=== PATIENT | female | born 1935 | race Caucasian/White ===

== ENCOUNTER 2017-07-01 01:04 | Observation (INO) | payer MEDICARE, BC ==
[~2017-07-01] VITALS: Ht 160 cm; Wt 60.4 kg
[2017-07-01] VITALS (11 sets, daily range): BP systolic 110–221; BP diastolic 52–103; PULSE 57–82; RESP 12–20; TEMP 96–97.7; O2SAT 93–98
[~2017-07-01 01:04] MED LIST: AMBI5TAB PO; ASPI81TA23 PO; Aspirin Chew PO; COUM5TAB PO; DOCU1CAP39 PO; FERR325T PO; FLUTI110I INH; HYDR-3516 PO; IPRASOL NEB; MUCI600T PO; PRAV20TA PO; PRED5TAB PO; SOTA80 PO; VITA100018 PO; [UNRECOGNIZED DRUG - OTHER] TOPICAL
--- NOTE | 2017-07-01 01:28 | PD ---
HPI Chief Complaint: nosebleed Time Seen by Provider: 01:22 Travel History International Travel<30 days: No Contact w/Intl Traveler<30days: No Traveled to known affect area: No History of Present Illness HPI 81-year-old female with history of DVT, A. fib, on Coumadin, here for evaluation of nosebleed. Patient noticed a bleed about an hour prior to arrival and it woke her up from sleep. States it is mainly from her right nare. She denies trauma. She reports history of spontaneous nosebleed from the right knee requiring Rhino Rocket a couple years ago. Her last INR was 2 weeks ago and was 2.4. 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) Endocrine: No GERD: No Genitourinary: Yes (UROTHELIAL CARCINOMA) Hiatal Hernia: No Immune Disorder: Yes Kidney Stones: Yes Musculoskeletal: Yes Neurologic: Yes Psychiatric: No Reproductive: No Respiratory: Yes Integumentary: Yes (SQUAMOUS CELL PRIMITIVO&YULY 2014) Migraines: No Radiation Therapy: Yes Renal Failure: No Seizures: No Sickle Cell Disease: No Sleep Apnea: No Thyroid Disease: No Ulcer: No Menopausal: Yes : 2 Para: 2 Past Surgical History Abdominal Surgery: Yes AICD: No Appendectomy: Yes Arteriovenous Shunt: No Body Medical Devices: RIGHT SIDE DANIELLE FILTER 2000 Cardiac Surgery: No Ear Surgery: No Endocrine Surgery: No Eye Surgery: Yes (L EYE CATARACT) Genitourinary Surgery: Yes (CANCER IN BLADDER) Gynecologic Surgery: No (hysterectomy) Hysterectomy: Yes Insulin Pump: No Joint Replacement: No Oral Surgery: No Pacemaker: No Thoracic Surgery: No Social History Alcohol Use: No Tobacco Use: No Substance Use: No Allergies-Medications (Allergen,Severity, Reaction): Coded Allergies: doxycycline (Unverified Allergy, Severe, 02/10/17) TOUNG SWELL gabapentin (Unverified Allergy, Severe, 02/10/17) TOUNG SWELLING pregabalin (Unverified Allergy, Severe, 02/10/17) orange (Unverified Adverse Reaction, Intermediate, Diarrhea, 02/10/17) [place] Juice only Reported Meds & Prescriptions Reported Meds & Active Scripts Active Vitamin D3 (Cholecalciferol) 1,000 Unit Tab 1,000 Units PO DAILY Pravachol (Pravastatin) 20 Mg Tab 20 Mg PO DAILY Sorine (Sotalol HCl) 80 Mg Tab 40 Mg PO BID Ambien (Zolpidem Tartrate) 5 Mg Tab 5 Mg PO HS PRN Coumadin (Warfarin) 5 Mg Tab 5 Mg PO DAILY@16 Duoneb (Ipratropium-Albuterol Neb) 0.5-2.5 Mg/3 Ml Neb 1 Ampule NEB BID NEB Aspirin EC (Aspirin) 81 Mg Tabdr 81 Mg PO MOWEFR@09 Reported Breo Ellipta Inh (Fluticasone/Vilanterol) 100-25 Mcg/Act Inh 1 Puff INH DAILY Use daily at the same time. Miralax Powder (Polyethylene Glycol 3350 Powder) 17 Gm Powd 17 Gm PO DAILY Mix and dissolve one measuring cap-ful (17 grams) in water or juice. Furosemide 20 Mg Tab 20 Mg PO DAILY Tylenol (Acetaminophen) 325 Mg Tab 500 Mg PO DIRECTED Docusate Sodium 100 Mg Cap 100 Mg PO DAILY Review of Systems Except as stated in HPI: all other systems reviewed are Neg Physical Exam Narrative GENERAL: Well-developed, well-nourished, awake, alert, comfortable, no apparent distress. SKIN: Focused skin assessment warm/dry. HEAD: Atraumatic. Normocephalic. EYES: Pupils equal and round. No scleral icterus. No injection or drainage. ENT: Bilateral nares with dried blood with no active bleeding. There is also small amount of blood in posterior pharynx without active bleeding. There is a nasal septal defect which the patient reports she has had for a long time. NECK: Trachea midline. No JVD. CARDIOVASCULAR: Regular rate and rhythm. RESPIRATORY: No accessory muscle use. Clear to auscultation. Breath sounds equal bilaterally. GASTROINTESTINAL: Abdomen soft, non-tender, nondistended. MUSCULOSKELETAL: No obvious deformities. No clubbing. No cyanosis. No edema. NEUROLOGICAL: Awake and alert. No obvious cranial nerve deficits. Motor grossly within normal limits. Normal speech. PSYCHIATRIC: Appropriate mood and affect; insight and judgment normal. Data Data Last Documented VS Vital Signs Date Time Temp Pulse Resp B/P (MAP) Pulse Ox O2 Delivery O2 Flow Rate FiO2 07/01/17 02:33 68 16 183/95 (124) 95 Room Air 07/01/17 01:10 97.6 Orders Orders Basic Metabolic Panel (Bmp) (07/01/17 01:22) Complete Blood Count With Diff (07/01/17 01:22) Prothrombin Time / Inr (Pt) (07/01/17 01:22) Act Partial Throm Time (Ptt) (07/01/17 01:22) Iv Access Insert/Monitor (07/01/17 01:22) Ecg Monitoring (07/01/17 01:22) Oximetry (07/01/17 01:22) Sodium Chloride 0.9% Flush (Ns Flush) (07/01/17 01:30) Admit Order (Ed Use Only) (07/01/17 02:56) Labs Laboratory Tests Test 07/01/17 01:52 White Blood Count 6.7 TH/MM3 Red Blood Count 3.98 MIL/MM3 Hemoglobin 12.6 GM/DL Hematocrit 38.7 % Mean Corpuscular Volume 97.2 FL Mean Corpuscular Hemoglobin 31.8 PG Mean Corpuscular Hemoglobin Concent 32.7 % Red Cell Distribution Width 13.1 % Platelet Count 310 TH/MM3 Mean Platelet Volume 7.4 FL Neutrophils (%) (Auto) 62.9 % Lymphocytes (%) (Auto) 25.3 % Monocytes (%) (Auto) 9.4 % Eosinophils (%) (Auto) 2.0 % Basophils (%) (Auto) 0.4 % Neutrophils # (Auto) 4.3 TH/MM3 Lymphocytes # (Auto) 1.7 TH/MM3 Monocytes # (Auto) 0.6 TH/MM3 Eosinophils # (Auto) 0.1 TH/MM3 Basophils # (Auto) 0.0 TH/MM3 CBC Comment DIFF FINAL Differential Comment Prothrombin Time 22.7 SEC Prothromb Time International Ratio 2.2 RATIO Activated Partial Thromboplast Time 34.1 SEC Blood Urea Nitrogen 35 MG/DL Creatinine 1.30 MG/DL Random Glucose 96 MG/DL Calcium Level 9.6 MG/DL Sodium Level 140 MEQ/L Potassium Level 5.2 MEQ/L Chloride Level 103 MEQ/L Carbon Dioxide Level 27.6 MEQ/L Anion Gap 9 MEQ/L Estimat Glomerular Filtration Rate 39 ML/MIN MDM Medical Decision Making Medical Screen Exam Complete: Yes Emergency Medical Condition: Yes Differential Diagnosis Epistaxis, anterior nosebleed, posterior nosebleed, coagulopathy Narrative Course Vital signs reviewed and shows that the patient is slightly hypertensive with initial blood pressure 221/103 with repeat blood pressure 183/95 without any intervention. She is not displaying any signs or symptoms of hypertensive crisis. CBC shows hemoglobin 12.6, hematocrit 38.7, platelets 310. BMP is remarkable for potassium 5.2, BUN 35, creatinine 1.3, GFR 39 which is slightly worse than her baseline renal function. INR is 2.2. Patient presents with epistaxis and hemostasis was achieved prior to arriving in the emergency department. Patient had a few episodes of coughing up blood clots from her posterior pharynx, however there is no indication of active bleeding. Both the patient and her daughter were made aware of all findings and she is resting comfortably. Patient is concerned about being discharged home and having further bleeding. I believe it is reasonable to keep her for overnight observation as she is on Coumadin and her INR is 2.2. She also has slightly worsening renal function than her baseline. Case was discussed with the patient's primary care physician Dr. Morrissey who has agreed to admit the patient to his service for overnight observation. Diagnosis Primary Impression: Epistaxis Additional Impressions: Acute kidney injury Warfarin-induced coagulopathy Admitting Information Admitting Physician Requests: Observation Basilio Weston MD Jul 01, 2017 01:28
[2017-07-01] MEDS ORDERED: SODIUM CHLORIDE 0.9% FLUSH 10 ML FLUSH IV FLUSH PRN ×2 (01:30→03:15)
[2017-07-01 02:16] LABS: AUTOMATED NEUTROPHIL # 4.3 TH/MM3 (1.8-7.7); BASOPHIL % 0.4 % (0.0-2.0); EOSINOPHIL # 0.1 TH/MM3 (0-0.4); HEMATOCRIT 38.7 % (35.0-46.0); HEMOGLOBIN 12.6 GM/DL (11.6-15.3); LYMPH % 25.3 % (9.0-44.0); LYMPHOCYTE # 1.7 TH/MM3 (1.0-4.8); MEAN CELL VOLUME 97.2 FL (80.0-100.0); MEAN CORPUSCULAR HEMOGLOBIN 31.8 PG (27.0-34.0); MEAN CORPUSCULAR HGB CONC 32.7 % (32.0-36.0); MEAN PLATELET VOLUME 7.4 FL (7.0-11.0); MONO % 9.4 % (0.0-8.0); MONOCYTE # 0.6 TH/MM3 (0-0.9); NEUT % 62.9 % (16.0-70.0); PLATELET COUNT 310 TH/MM3 (150-450); RED BLOOD COUNT 3.98 MIL/MM3 (4.00-5.30); RED CELL DISTRIBUTION WIDTH 13.1 % (11.6-17.2); WHITE BLOOD COUNT 6.7 TH/MM3 (4.0-11.0)
[2017-07-01] MEDS ORDERED: FLUT1INH INH (02:17)
[2017-07-01] MEDS ORDERED: FURO20TA PO (02:17)
[2017-07-01] MEDS ORDERED: MIRA3350 PO (02:17)
[2017-07-01] MEDS ORDERED: DOCU100C15 PO (02:17)
[2017-07-01] MEDS ORDERED: TYLE325T PO (02:17)
[2017-07-01 02:26] LABS: CALCIUM 9.6 MG/DL (8.5-10.1)
[2017-07-01 02:27] LABS: BICARBONATE 27.6 MEQ/L (21.0-32.0)
[2017-07-01 02:28] LABS: INTERNATIONAL NORMALIZED RATIO 2.2 RATIO; PROTHROMBIN TIME - PATIENT 22.7 SEC (9.8-11.6)
[2017-07-01 02:30] LABS: CREATININE 1.3 MG/DL (0.50-1.00)
[2017-07-01] MEDS ORDERED: SODIUM CHLOR 0.9% 1000 ML INJ 1,000 ML IV SCH (03:06)
[2017-07-01] MEDS ORDERED: SENNOSIDES 8.6 MG TAB PO PRN (03:15)
[2017-07-01] MEDS ORDERED: NALOXONE HCL 0.4 MG/ML AMP IV PUSH PRN (03:15)
[2017-07-01] MEDS ORDERED: cloNIDine HCL 0.1 MG TAB PO PRN (03:15)
[2017-07-01] MEDS ORDERED: LACTULOSE SYRUP 20 GM/30 ML CUP PO PRN (03:15)
[2017-07-01] MEDS ORDERED: MAGNESIUM HYDROXIDE SUSP 30 ML CUP PO PRN (03:15)
[2017-07-01] MEDS ORDERED: ZOLPIDEM TARTRATE 5 MG TAB PO PRN (03:15)
[2017-07-01] MEDS ORDERED: ONDANSETRON HCL 4 MG/2 ML VIAL IVP PRN (03:15)
[2017-07-01] MEDS ORDERED: ACETAMINOPHEN 325 MG TAB PO PRN (03:15)
[2017-07-01] MEDS ORDERED: BISACODYL 10 MG SUPP RECTAL PRN (03:15)
[2017-07-01] MEDS: amLODIPine BESYLATE 5 MG TAB PO SCH ×2 (03:40→09:17)
[2017-07-01] MEDS ORDERED: RESP: ALBUTEROL 2.5 MG/IPRATROPIUM 0.5 MG NEB (SCH) NEB (08:00)
[2017-07-01] MEDS ORDERED: DOCUSATE SODIUM 50 MG/SENNA 8.6 MG TAB PO SCH (09:00)
[2017-07-01] MEDS ORDERED: SODIUM CHLORIDE 0.9% FLUSH 10 ML FLUSH IV FLUSH SCH (09:00)
[2017-07-01] MEDS ORDERED: SOTALOL HCL 80 MG TAB PO SCH (09:00)
[2017-07-01] MEDS ORDERED: DOCUSATE SODIUM 100 MG CAP PO SCH (09:00)
[2017-07-01] MEDS ORDERED: CHOLECALCIFEROL (VIT D3) 1000 UNIT TAB PO SCH (09:00)
[2017-07-01] MEDS ORDERED: POLYETHYLENE GLYCOL 17 GM PKG PO SCH (09:00)
[2017-07-01] MEDS ORDERED: FLUTICASONE 100 MCG/VILANTEROL 25 MCG INHALER INH SCH (09:00)
[2017-07-01] MEDS ORDERED: PRAVASTATIN SOD 20 MG TAB PO SCH (09:00)
[2017-07-01 10:41] LABS: AUTOMATED NEUTROPHIL # 4.4 TH/MM3 (1.8-7.7); BASOPHIL % 0.3 % (0.0-2.0); EOSINOPHIL # 0.1 TH/MM3 (0-0.4); EOSINOPHIL % 1.5 % (0.0-4.0); HEMATOCRIT 38.3 % (35.0-46.0); HEMOGLOBIN 12.6 GM/DL (11.6-15.3); LYMPH % 21.1 % (9.0-44.0); LYMPHOCYTE # 1.4 TH/MM3 (1.0-4.8); MEAN CELL VOLUME 97.5 FL (80.0-100.0); MEAN CORPUSCULAR HEMOGLOBIN 32.1 PG (27.0-34.0); MEAN PLATELET VOLUME 7.3 FL (7.0-11.0); MONO % 8.9 % (0.0-8.0); MONOCYTE # 0.6 TH/MM3 (0-0.9); NEUT % 68.2 % (16.0-70.0); PLATELET COUNT 305 TH/MM3 (150-450); RED BLOOD COUNT 3.93 MIL/MM3 (4.00-5.30); RED CELL DISTRIBUTION WIDTH 13.4 % (11.6-17.2); WHITE BLOOD COUNT 6.5 TH/MM3 (4.0-11.0)
[2017-07-01 10:56] LABS: BICARBONATE 28.1 MEQ/L (21.0-32.0); CALCIUM 9.5 MG/DL (8.5-10.1)
[2017-07-01 11:00] LABS: CREATININE 0.94 MG/DL (0.50-1.00)
[2017-07-01] MEDS ORDERED: AMLO5 PO (15:49)
--- NOTE | 2017-07-01 15:54 | HHI.FF ---
Face to Face Verification Diagnosis: (1) Hypertension (2) Epistaxis (3) COPD (chronic obstructive pulmonary disease) (4) Impaired mobility and activities of daily living (5) Atrial fibrillation Physical Therapy Order: Evaluate and Treat, Improve ambulation, Strength and gait training Occupational Therapy Order: Evaluate and Treat, Improve ADL, Fine motor coordination Home Health Nursing Order: Medication education-adverse effect Instructions: Monitor vital signs due to recent severe hypertension and medication changes Home Health Aide Order: To Assist In: Bathing and personal care I have seen patient Cristina Huff on 07/01/17. My clinical findings support the need for the requested home health care services because: Ltd mobility - disease progression Deconditioned w/ increased weakness I certify that my clinical findings support that this patient is homebound because: Hx COPD- exertion dyspnea/weakness Unsafe to leave home unassisted Unable to use public transportation Boo Morrissey MD Jul 01, 2017 15:54
== END 2017-07-01 17:32 | disposition home or self-care (01) ==
LOC: PHED 01:04 → PHEDA 02:58 → PH3A 04:28
PROVIDERS: ADMIT Family Medicine; ATTEND Family Medicine
DX: R04.0 Epistaxis (principal); N17.9 Acute kidney failure, unspecified; R79.1 Abnormal coagulation profile; T45.515A Adverse effect of anticoagulants, initial encounter; Z86.718 Personal history of other venous thrombosis and embolism; I48.91 Unspecified atrial fibrillation; Z79.01 Long term (current) use of anticoagulants; M79.7 Fibromyalgia; Z85.3 Personal history of malignant neoplasm of breast; R01.1 Cardiac murmur, unspecified; E78.00 Pure hypercholesterolemia, unspecified; J44.9 Chronic obstructive pulmonary disease, unspecified; Z79.899 Other long term (current) drug therapy
CPT/HCPCS: 80048; 85025; 85610; 85730; 96360; 99285; G0378; J7030

== ENCOUNTER 2018-04-01 12:53 | Inpatient (IN) ==
--- NOTE | 2018-04-01 13:08 | ED ---
HPI General Chief complaint: Extremity Injury, Lower Stated complaint: Fall Time Seen by Provider: 04/01/18 13:03 History of Present Illness HPI narrative: This is an 82-year-old female who presents via EMS for evaluation after a fall. She reports that prior to arrival she was at home holding a jar of sauce when she fell. She is uncertain specifically why she fell-she does not recall tripping over anything. She was not feeling lightheaded or dizzy. She was having no chest pain or shortness of breath or headache or any other precipitating symptoms. There was no syncope. She reports that she landed on her left elbow and her left hip. No head trauma. She is complaining of pain in her left hip/proximal thigh. Pain is aching, constant, worse with movement. She received 2 mg of morphine prior to arrival via she has a skin tear to the left elbow as well with minimal pain. She has no other symptoms at this time. Related Data Home Medications Medication Instructions Recorded Confirmed Ensure 04/01/18 aspirin 81 mg PO DAILY 04/01/18 04/01/18 bumetanide 0.5 mg PO DAILY 04/01/18 04/02/18 cholecalciferol (vitamin D3) 1,000 unit PO DAILY 04/01/18 04/02/18 [Vitamin D3] docusate sodium 100 mg PO DAILY 04/01/18 04/02/18 eucalyptus-peppermint oil [Ponaris] 1 applic INTRANASAL 1800 04/01/18 04/01/18 levothyroxine 50 mcg PO DAILY 04/01/18 04/01/18 pravastatin 20 mg PO DAILY 04/01/18 04/01/18 sotalol 40 mg PO BID 04/01/18 04/02/18 vit C,V-Gi-tdshx-lutein-zeaxan 1 tab PO BID 04/01/18 04/02/18 [PreserVision AREDS-2] warfarin 5 mg PO DAILY 04/01/18 04/01/18 zolpidem [Ambien] 04/01/18 Allergies Allergy/AdvReac Type Severity Reaction Status Date / Time doxycycline Allergy Severe Hives Verified 04/01/18 15:21 gabapentin Allergy Severe Hives Verified 04/01/18 15:21 pregabalin Allergy Severe Hives Verified 04/01/18 15:21 orange AdvReac Intermediate Diarrhea Verified 04/01/18 15:21 Review of Systems ROS: all other systems reviewed are negative PMFSH Social History Social History Substance History: No History of Abuse Second Hand Smoke Exposure: No Smoking Status: Never smoker How Often Do You Have a Drink Containing Alcohol: Never Recent Travel in [facility] within the Last 8 Weeks: No Recent Out of Country Travel within the Last 8 Weeks: No Exam Narrative Exam Narrative: GENERAL: Pleasant well-developed well-nourished female no acute distress SKIN: Warm and dry. Skin tear noted to the posterior left elbow. HEAD: Atraumatic. Normocephalic. EYES: Pupils equal and round. No scleral icterus. No injection or drainage. ENT: No nasal bleeding or discharge. Mucous membranes pink and moist. NECK: Trachea midline. No JVD. CARDIOVASCULAR: Regular rate and rhythm. No murmur appreciated. RESPIRATORY: No accessory muscle use. Clear to auscultation. Breath sounds equal bilaterally. GASTROINTESTINAL: Abdomen soft, non-tender, nondistended. Hepatic and splenic margins not palpable. MUSCULOSKELETAL: No obvious deformities. There is tenderness to palpation to the lateral proximal left thigh. There is minimal tenderness to palpation of the posterior left elbow at the location of the skin tear. Patient has pain with passive range of motion activities of the left hip. NEUROLOGICAL: Awake and alert. No obvious cranial nerve deficits. Motor grossly within normal limits. Normal speech. Course Initial Documented Vital Signs Temperature 97.6 F 04/01/18 13:10 Pulse Rate 87 04/01/18 13:10 Respiratory Rate 19 04/01/18 13:10 Blood Pressure 175/78 H 04/01/18 13:10 Pulse Oximetry 94 L 04/01/18 13:10 Last Documented Vital Signs Temperature 98.1 F 04/02/18 16:00 Pulse Rate 75 04/02/18 16:00 Respiratory Rate 18 04/02/18 16:00 Blood Pressure 89/53 L 04/02/18 16:00 Pulse Oximetry 92 L 04/02/18 16:00 Medical Decision Making PAOLO Attestation PAOLO supervised visit: Yes Attestation: I, Dr. Houston, have reviewed the advance practice practitioner's documentation and am in agreement, met with the patient face to face, made the diagnosis, and the medical decision making was done by me. *My assessment and Findings: Patient is an 82 year old female who comes in complaining of pain after a fall. While here, she became short of breath. Per friend, she has been short of breath ever since having a valve replacement. Lungs CTA on exam. She is tender to palpation of the left hip. Patient given duoneb. Given pain medicine. Will be admitted for further management. [facility] Narrative Medical decision making narrative: X-ray imaging of the left femur/pelvis, left elbow will be obtained. Lab work, EKG ordered. Tetanus status updated. Local wound care provided. 1515: Patient's next-door neighbor has arrived and provides additional history. The patient was feeling fine this morning she is now complaining of some shortness of breath. 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 Her oxygen saturation is now noted to be in the low 90s on 3 L of oxygen. The patient does have history of COPD, uses oxygen but only at night. Neighbor does report that after her surgery she had some fluid in her lungs requiring diuresis during her hospitalization. Troponin, CK, BNP, chest x-ray have been ordered. The patient will be given DuoNeb treatments. Lab work is been reviewed. Troponin is 0.06. BNP is 300. INR slightly subtherapeutic at 1.9. Therefore CT pulmonary antrum has been ordered. Chest x -ray revealed increased interstitial markings. 20 mg IV Lasix ordered. I discussed with the patient's physician Dr. Morrissey who is agreeable with admission. Medical Screen Exam Complete: Yes Emergency Medical Condition: Yes Differential Diagnosis Differential Diagnosis: Contusion, strain, fracture, dislocation, hematoma Lab Data Result diagrams: 04/02/18 06:24 04/02/18 06:24 Lab Results 04/01/18 04/01/18 04/01/18 Range/Units 13:25 13:25 13:25 WBC 11.1 H (4.0-11.0) th/mm3 RBC 3.87 L (4.00-5.30) mil/mm3 Hgb 12.0 (11.6-15.3) gm/dL Hct 37.5 (35.0-46.0) % MCV 96.9 (80.0-100.0) fL MCH 31.0 (27.0-34.0) pg MCHC 32.0 (32.0-36.0) % RDW 17.2 (11.6-17.2) % Plt Count 253 (150-450) th/mm3 MPV 7.9 (7.0-11.0) fL Neut % (Auto) 78.5 H (16.0-70.0) % Lymph % (Auto) 13.2 (9.0-44.0) % [place] % (Auto) 7.5 (0.0-8.0) % Eos % (Auto) 0.5 (0.0-4.0) % Baso % (Auto) 0.3 (0.0-2.0) % Neut # (Auto) 8.7 H (1.8-7.7) th/mm3 Lymph # (Auto) 1.5 (1.0-4.8) th/mm3 [place] # (Auto) 0.8 (0.0-0.9) th/mm3 Eos # (Auto) 0.1 (0.0-0.4) th/mm3 Baso # (Auto) 0.0 (0.0-0.2) th/mm3 WBC Differential . Differential Comment Auto diff final PT (9.8-11.6) sec INR Ratio APTT (24.3-30.1) sec Puncture Site Patient Temperature O2 Saturation (90-100) % ABG pH (7.380-7.420) ABG pCO2 (38-42) mmHg ABG pO2 (61-120) mmHg ABG HCO3 (22-26) mmol/L ABG O2 Content (12.0-20.0) Vol % ABG Base Excess (-2-2) mmol/L ABG Methemoglobin (0-2) % [place] Test Hemoglobin (12.0-16.0) G/DL Carboxyhemoglobin (0-4) % O2 Delivery Device Liter Flow L/M Critical Value Sodium (136-145) meq/L Potassium (3.5-5.1) meq/L Chloride (98-107) meq/L Carbon Dioxide (21.0-32.0) meq/L Anion Gap (5-15) meq/L BUN (7-18) mg/dL Creatinine (0.50-1.00) mg/dL Estimated GFR (>89) mL/min Random Glucose (74-106) mg/dL Calcium (8.5-10.1) mg/dL Prot Corrected Calcium (8.5-10.1) mg/dL Magnesium (1.5-2.5) mg/dL Iron (50-170) mcg/dL TIBC (250-450) mcg/dL % Saturation (20-50) % Ferritin (8-252) ng/mL Total Creatine Kinase 65 (26-192) U/L Troponin I 0.06 H (0.02-0.05) ng/mL B-Natriuretic Peptide 337 H (0-100) pg/mL Total Protein (6.4-8.2) g/dL TSH (0.358-3.740) uIU/mL 04/01/18 04/01/18 04/02/18 Range/Units 15:05 15:05 06:24 WBC 8.4 (4.0-11.0) th/mm3 RBC 3.43 L (4.00-5.30) mil/mm3 Hgb 10.8 L (11.6-15.3) gm/dL Hct 33.4 L (35.0-46.0) % MCV 97.2 (80.0-100.0) fL MCH 31.6 (27.0-34.0) pg MCHC 32.5 (32.0-36.0) % RDW 17.3 H (11.6-17.2) % Plt Count 197 (150-450) th/mm3 MPV 7.6 (7.0-11.0) fL Neut % (Auto) 76.2 H (16.0-70.0) % Lymph % (Auto) 13.4 (9.0-44.0) % [place] % (Auto) 9.1 H (0.0-8.0) % Eos % (Auto) 1.0 (0.0-4.0) % Baso % (Auto) 0.3 (0.0-2.0) % Neut # (Auto) 6.4 (1.8-7.7) th/mm3 Lymph # (Auto) 1.1 (1.0-4.8) th/mm3 [place] # (Auto) 0.8 (0.0-0.9) th/mm3 Eos # (Auto) 0.1 (0.0-0.4) th/mm3 Baso # (Auto) 0.0 (0.0-0.2) th/mm3 WBC Differential . Differential Comment Auto diff final PT 19.7 H D (9.8-11.6) sec INR 1.9 Ratio APTT 30.4 H (24.3-30.1) sec Puncture Site Patient Temperature O2 Saturation (90-100) % ABG pH (7.380-7.420) ABG pCO2 (38-42) mmHg ABG pO2 (61-120) mmHg ABG HCO3 (22-26) mmol/L ABG O2 Content (12.0-20.0) Vol % ABG Base Excess (-2-2) mmol/L ABG Methemoglobin (0-2) % [place]o Test Hemoglobin (12.0-16.0) G/DL Carboxyhemoglobin (0-4) % O2 Delivery Device Liter Flow L/M Critical Value Sodium 146 H (136-145) meq/L Potassium 3.6 (3.5-5.1) meq/L Chloride 115 H (98-107) meq/L Carbon Dioxide 22.0 (21.0-32.0) meq/L Anion Gap 9 (5-15) meq/L BUN 24 H (7-18) mg/dL Creatinine 0.98 (0.50-1.00) mg/dL Estimated GFR 54 L (>89) mL/min Random Glucose 73 L (74-106) mg/dL Calcium 6.8 L* (8.5-10.1) mg/dL Prot Corrected Calcium 7.7 L (8.5-10.1) mg/dL Magnesium 1.8 (1.5-2.5) mg/dL Iron (50-170) mcg/dL TIBC (250-450) mcg/dL % Saturation (20-50) % Ferritin (8-252) ng/mL Total Creatine Kinase (26-192) U/L Troponin I (0.02-0.05) ng/mL B-Natriuretic Peptide (0-100) pg/mL Total Protein 5.4 L (6.4-8.2) g/dL TSH (0.358-3.740) uIU/mL 04/02/18 04/02/18 04/02/18 Range/Units 06:24 06:24 06:24 WBC (4.0-11.0) th/mm3 RBC (4.00-5.30) mil/mm3 Hgb (11.6-15.3) gm/dL Hct (35.0-46.0) % MCV (80.0-100.0) fL MCH (27.0-34.0) pg MCHC (32.0-36.0) % RDW (11.6-17.2) % Plt Count (150-450) th/mm3 MPV (7.0-11.0) fL Neut % (Auto) (16.0-70.0) % Lymph % (Auto) (9.0-44.0) % [place] % (Auto) (0.0-8.0) % Eos % (Auto) (0.0-4.0) % Baso % (Auto) (0.0-2.0) % Neut # (Auto) (1.8-7.7) th/mm3 Lymph # (Auto) (1.0-4.8) th/mm3 [place] # (Auto) (0.0-0.9) th/mm3 Eos # (Auto) (0.0-0.4) th/mm3 Baso # (Auto) (0.0-0.2) th/mm3 WBC Differential Differential Comment PT 19.8 H (9.8-11.6) sec INR 2.0 Ratio APTT (24.3-30.1) sec Puncture Site Patient Temperature O2 Saturation (90-100) % ABG pH (7.380-7.420) ABG pCO2 (38-42) mmHg ABG pO2 (61-120) mmHg ABG HCO3 (22-26) mmol/L ABG O2 Content (12.0-20.0) Vol % ABG Base Excess (-2-2) mmol/L ABG Methemoglobin (0-2) % [place] Test Hemoglobin (12.0-16.0) G/DL Carboxyhemoglobin (0-4) % O2 Delivery Device Liter Flow L/M Critical Value Sodium 141 (136-145) meq/L Potassium 4.2 (3.5-5.1) meq/L Chloride 107 D (98-107) meq/L Carbon Dioxide 22.6 (21.0-32.0) meq/L Anion Gap 11 (5-15) meq/L BUN 35 H (7-18) mg/dL Creatinine 1.48 H (0.50-1.00) mg/dL Estimated GFR 34 L (>89) mL/min Random Glucose 79 (74-106) mg/dL Calcium 8.9 D (8.5-10.1) mg/dL Prot Corrected Calcium (8.5-10.1) mg/dL Magnesium (1.5-2.5) mg/dL Iron 20 L (50-170) mcg/dL TIBC 281 (250-450) mcg/dL % Saturation 7.1 L (20-50) % Ferritin 176 (8-252) ng/mL Total Creatine Kinase (26-192) U/L Troponin I (0.02-0.05) ng/mL B-Natriuretic Peptide (0-100) pg/mL Total Protein (6.4-8.2) g/dL TSH 1.070 (0.358-3.740) uIU/mL 04/02/18 Range/Units 11:52 WBC (4.0-11.0) th/mm3 RBC (4.00-5.30) mil/mm3 Hgb (11.6-15.3) gm/dL Hct (35.0-46.0) % MCV (80.0-100.0) fL MCH (27.0-34.0) pg MCHC (32.0-36.0) % RDW (11.6-17.2) % Plt Count (150-450) th/mm3 MPV (7.0-11.0) fL Neut % (Auto) (16.0-70.0) % Lymph % (Auto) (9.0-44.0) % [place] % (Auto) (0.0-8.0) % Eos % (Auto) (0.0-4.0) % Baso % (Auto) (0.0-2.0) % Neut # (Auto) (1.8-7.7) th/mm3 Lymph # (Auto) (1.0-4.8) th/mm3 [place] # (Auto) (0.0-0.9) th/mm3 Eos # (Auto) (0.0-0.4) th/mm3 Baso # (Auto) (0.0-0.2) th/mm3 WBC Differential Differential Comment PT (9.8-11.6) sec INR Ratio APTT (24.3-30.1) sec Puncture Site Left radial Patient Temperature 98.6 O2 Saturation 84 L* (90-100) % ABG pH 7.39 (7.380-7.420) ABG pCO2 38 (38-42) mmHg ABG pO2 53 L* (61-120) mmHg ABG HCO3 23 (22-26) mmol/L ABG O2 Content 12.7 (12.0-20.0) Vol % ABG Base Excess -1.5 (-2-2) mmol/L ABG Methemoglobin 1.0 (0-2) % [place]o Test Present Hemoglobin 10.7 L (12.0-16.0) G/DL Carboxyhemoglobin 1.7 (0-4) % O2 Delivery Device Nasal cannula Liter Flow 3.00 L/M Critical Value Yes Sodium (136-145) meq/L Potassium (3.5-5.1) meq/L Chloride (98-107) meq/L Carbon Dioxide (21.0-32.0) meq/L Anion Gap (5-15) meq/L BUN (7-18) mg/dL Creatinine (0.50-1.00) mg/dL Estimated GFR (>89) mL/min Random Glucose (74-106) mg/dL Calcium (8.5-10.1) mg/dL Prot Corrected Calcium (8.5-10.1) mg/dL Magnesium (1.5-2.5) mg/dL Iron (50-170) mcg/dL TIBC (250-450) mcg/dL % Saturation (20-50) % Ferritin (8-252) ng/mL Total Creatine Kinase (26-192) U/L Troponin I (0.02-0.05) ng/mL B-Natriuretic Peptide (0-100) pg/mL Total Protein (6.4-8.2) g/dL TSH (0.358-3.740) uIU/mL Imaging Data Radiologist's impression: Elbow X-Ray 04/01/18 13:04 CONCLUSION: No evidence of recent bony injury. Femur X-Ray 04/01/18 13:04 CONCLUSION: 1. No acute fracture or dislocation of the left femur. 2. Moderate osteoarthritis involving left knee joint. Pelvis X-Ray 04/01/18 13:04 CONCLUSION: 1. Fracture involving the left inferior pubic ramus of indeterminate age. Clinical correlation is recommended. 2. Degenerative changes throughout the lower lumbar spine. Chest X-Ray 04/01/18 14:58 CONCLUSION: Increased interstitial markings are noted consistent with acute and/or chronic interstitial disease. Clinical correlation is recommended. Chest CTA 04/01/18 16:23 CONCLUSION: 1. No pulmonary embolus. 2. Mild pulmonary edema with small bilateral pleural effusions. 3. Left upper lobe 2.6 cm masslike opacity as described. Outpatient PET/CT is recommended if felt clinically indicated. 4. Coronary artery calcification. Discharge Plan Discharge Disposition Patient Disposition: 30 Still Patient Discharge Condition Condition: Stable Discharge Details Diagnosis: Dyspnea, Elevated troponin, Closed fracture of pubic ramus Physicians Team ED Provider: Patricia Rodas ED Midlevel Provider: Regan Barajas Primary Care Provider: Boo Morrissey Attending Provider: Boo Morrissey Other Providers: [facility],Agency Status ED Status: Left Department Discharge Information Discharge Date/Time: 04/01/18 19:24
[2018-04-01 14:02] LABS: Baso % (Auto) 0.3 % (0.0-2.0); Eos # (Auto) 0.1 th/mm3 (0.0-0.4); Eos % (Auto) 0.5 % (0.0-4.0); Hematocrit 37.5 % (35.0-46.0); Lymph # (Auto) 1.5 th/mm3 (1.0-4.8); Lymph % (Auto) 13.2 % (9.0-44.0); Mean Corpuscular Volume 96.9 fL (80.0-100.0); Mean Platelet Volume 7.9 fL (7.0-11.0); Mono # (Auto) 0.8 th/mm3 (0.0-0.9); Mono % (Auto) 7.5 % (0.0-8.0); Neut # (Auto) 8.7 th/mm3 (1.8-7.7); Neut % (Auto) 78.5 % (16.0-70.0); Platelet Count 253 th/mm3 (150-450); Red Blood Count 3.87 mil/mm3 (4.00-5.30); Red Cell Distribution Width 17.2 % (11.6-17.2); White Blood Count 11.1 th/mm3 (4.0-11.0)
--- NOTE | 2018-04-01 14:35 | XR ---
EXAM DATE: 04/01/2018 1:04 PM EDT AGE/SEX: 82 years / Female INDICATIONS: Pelvic pain, fall. CLINICAL DATA: This is the patient's initial encounter. Patient reports that signs and symptoms have been present for 1 day and indicates a pain score of 10/10. MEDICAL/SURGICAL HISTORY: None. . ORIF left femur. COMPARISON: [facility] [place], HIP LEFT (MIN 4VWS) W AP PELVIS, 06/15/2016. . FINDINGS: The patient is status post ORIF of left proximal femur. There is a fracture involving the left inferi or pubic ramus of indeterminate age. Clinical correlation is recommended. Degenerative changes are no geetha throughout the lower lumbar spine. CONCLUSION: 1. Fracture involving the left inferior pubic ramus of indeterminate age. Clinical correlation is re commended. 2. Degenerative changes throughout the lower lumbar spine. Electronically signed by: Nilson Retana MD 04/01/2018 2:34 PM EDT
--- NOTE | 2018-04-01 14:36 | XR ---
EXAM DATE: 04/01/2018 1:04 PM EDT AGE/SEX: 82 years / Female INDICATIONS: Left femur pain, fall. CLINICAL DATA: This is the patient's initial encounter. Patient reports that signs and symptoms have been present for 1 day and indicates a pain score of 10/10. MEDICAL/SURGICAL HISTORY: None. . ORIF left femur. [place] [facility] [place]. . FINDINGS: Hardware is noted within the left femur status post ORIF. No acute fracture or dislocation of the lef t femur is noted. Moderate osteoarthritis is noted involving the left knee joint. CONCLUSION: 1. No acute fracture or dislocation of the left femur. 2. Moderate osteoarthritis involving left knee joint. Electronically signed by: Nilson Retana MD 04/01/2018 2:35 PM EDT
--- NOTE | 2018-04-01 14:37 | XR ---
EXAM DATE: 04/01/2018 1:04 PM EDT AGE/SEX: 82 years / Female INDICATIONS: Left elbow pain, fall. CLINICAL DATA: This is the patient's initial encounter. Patient reports that signs and symptoms have been present for 1 day and indicates a pain score of 8/10. MEDICAL/SURGICAL HISTORY: None. None. COMPARISON: No prior exams available for comparison. FINDINGS: Bony structures are intact and in normal alignment. Joints are intact without dislocation or signifi cant arthropathy. Osseous density is normal. Soft tissues are unremarkable. No radiopaque foreign bodies seen. CONCLUSION: No evidence of recent bony injury. Electronically signed by: Nilson Retana MD 04/01/2018 2:36 PM EDT
[2018-04-01] MEDS ORDERED: Morphine Sulfate Inj 2 MG/ML Vial IV.PUSH ONE (15:04)
--- NOTE | 2018-04-01 15:33 | XR ---
EXAM DATE: 04/01/2018 2:58 PM EDT AGE/SEX: 82 years / Female INDICATIONS: Dyspnea. CLINICAL DATA: This is the patient's initial encounter. Patient reports that signs and symptoms have been present for 1 day and indicates a pain score of 0/10. MEDICAL/SURGICAL HISTORY: None. . ORIF left femur. COMPARISON: [facility], XR CHEST PA AND LAT, 02/18/2018. . FINDINGS: There is increased interstitial markings are noted consistent with acute and/or chronic interstitial disease. Clinical correlation is recommended. No focal alveolar consolidation is noted. The heart is stable. Aortic valve hardware is noted. Surgical clips are noted within the right axilla. CONCLUSION: Increased interstitial markings are noted consistent with acute and/or chronic interstitial disease. Clinical correlation is recommended. Electronically signed by: Nilson Retana MD 04/01/2018 3:32 PM EDT
[2018-04-01 15:57] LABS: Activated Partial Thrombo Time 30.4 sec (24.3-30.1); INR 1.9 Ratio; Prothrombin Time 19.7 sec (9.8-11.6)
[2018-04-01] MEDS ORDERED: Acetaminophen 325 MG Tablet PO ONE (16:09)
[2018-04-01 16:12] LABS: Calcium 6.8 mg/dL (8.5-10.1); Magnesium 1.8 mg/dL (1.5-2.5); Potassium 3.6 meq/L (3.5-5.1)
[2018-04-01 16:15] LABS: Troponin I 0.06 ng/mL (0.02-0.05)
[2018-04-01 16:25] LABS: Total Protein 5.4 g/dL (6.4-8.2)
[2018-04-01] MEDS ORDERED: Acetaminophen 325 MG Tablet PO PRN (17:36)
[2018-04-01] MEDS ORDERED: Bisacodyl 10 MG Supp RECTAL PRN (17:36)
--- NOTE | 2018-04-01 18:52 | CT ---
EXAM DATE: 04/01/2018 5:39 PM EDT AGE/SEX: 82 years / Female INDICATIONS: Embolism CLINICAL DATA: This is the patient's initial encounter. Patient reports that signs and symptoms have been present for 1 day and indicates a pain score of 10/10. MEDICAL/SURGICAL HISTORY: Deep venous thrombosis. Chronic obstructive pulmonary disease. Aneurysm , abdominal. Atrial Fib, Aortic stenosis, carotid stenosis, Fibromyalgia Hysterectomy. Appendectom y. Aortic valve replacement, Heart cath RADIATION DOSE: 9.26 CTDI (mGy) COMPARISON: No prior exams available for comparison. TECHNIQUE: Volumetric scanning was performed using a multi-row detector CT scanner during bolus infu mayuri of 75ML ml Omnipaque 350 (iohexol) nonionic water-soluble contrast as a single exam dose. The d celeste was post processed with a variety of visualization algorithms including full volume maximum inten sity projection and sliding thin slab reformation. Using automated exposure control and adjustment o f the mA and/or kV according to patient size, radiation dose was kept as low as reasonably achievable to obtain optimal diagnostic quality images. DICOM format image data is available electronically fo r review and comparison. FINDINGS: There is no pulmonary embolus. There is diffuse thickening of the interlobular septa of both lungs and small bilateral pleural effus ions with basilar consolidation. Roughly 3.6 cm spiculated and masslike opacity is seen anteromediall y of the left upper lobe and abutting the mediastinum. No pathologic-appearing lymphadenopathy. Mild panchamber enlargement of the heart. There is right and left side coronary artery calcification and also atherosclerosis of the thoracic aorta. Aortic valve replacement noted. CONCLUSION: 1. No pulmonary embolus. 2. Mild pulmonary edema with small bilateral pleural effusions. 3. Left upper lobe 2.6 cm masslike opacity as described. Outpatient PET/CT is recommended if felt cl inically indicated. 4. Coronary artery calcification. Electronically signed by: Jose Caceres MD 04/01/2018 6:51 PM EDT
--- NOTE | 2018-04-01 19:13 | MH ---
cc: Boo Morrissey MD DATE OF ADMISSION: 04/01/2018 ADMITTING DIAGNOSES: 1. Status post fall. 2. Left inferior pubic ramus fracture. 3. Shortness of breath. 4. Possible congestive heart failure. 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 The patient has peripheral neuropathy, so she has baseline balance issues. She was at home cooking dinner and she lifted up a pot of pasta and turned to place it on a countertop and lost her balance. She fell to the ground. She had sudden onset of pain in the left groin. She was unable to arise from the floor. She contacted her friend, who is a neighbor, who contacted EMS. The patient was transported to this facility for further evaluation and treatment. The patient reports that she is having pain in the left groin area. She is unable to lift her left leg without significant discomfort. The patient denies any head injury, any syncope, near syncope, lightheadedness, dizziness, chest pain, palpitations. During her stay in the emergency department, she has had progression of shortness of breath, which required the initiation of oxygen at 2 liters per minute per nasal cannula. The patient has been given just now a dose of Lasix 20 mg IV. The patient states that she has been short of breath with exertion, which is not unusual for her due to her COPD, but she also recently was admitted to [facility] for acute on chronic diastolic heart failure. She has been taking her medications as directed. She is also using her nebulizer treatments. The patient has oxygen at home, which she uses at 2 liters per minute per nasal cannula at night. The patient is more comfortable with the oxygen in place. She did have some nausea earlier after receiving some pain medication, but she received some Zofran, which has helped with the nausea. She has had no emesis. She states her bowels have been moving well. She has had no urinary urgency, frequency or dysuria. She denies intermittent claudication in her lower extremities despite her peripheral vascular disease. PAST MEDICAL HISTORY: Extensive and includes the following: Chronic insomnia for which she receives Zolpidem. 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 She has cervical and lumbar disk disease with daily pain in the low back and into the legs. She has a history of osteopenia, primary generalized osteoarthritis, history of DVTs with pulmonary emboli. She has an IVC filter in place. She has peripheral vascular disease, hyperlipidemia. She has a calcified 6 mm lymph node in the left chest, which was found in 2011 and has been stable. She has a history of the aortic stenosis, but underwent a TAVR procedure earlier this year. Her last echocardiogram was done within the last 2 months and reveals adequate functioning of the prosthesis. She does have a small aortic aneurysm, left carotid stenosis. She has a history of bladder cancer in 2014, for which she underwent a TURBT and subsequent BCG treatments. She has refused any followup cystoscopies. She had a left hip fracture in 2017. She has coronary artery disease with 30% to 50% diffuse coronary artery stenosis based on a cardiac catheterization done earlier this year and she has moderate to severe pulmonary hypertension. PAST SURGICAL HISTORY: Includes status post hysterectomy in the 1970s, status post bilateral salpingo-oophorectomy in 1998, status post left breast lumpectomy for breast cancer with subsequent radiation therapy in 1992, status post right breast lumpectomy with subsequent radiation therapy in 1998. She had a cervical laminectomy in the past as well as a lumbar laminectomy. She had an IVC filter placed in 2000. She has had surgeries for multiple skin cancer removals and has had radiation therapy on one of her squamous cell carcinomas. She is status post appendectomy and she had a left total hip replacement due to a fall and a fracture in 2017. CURRENT MEDICATIONS: Include: 1. Bumex 0.5 mg daily. 2. Ferrous sulfate 325 mg twice daily. 3. Zolpidem 5 mg at bedtime as needed for insomnia. 4. PreserVision AREDS 2 one tablet daily. 5. Sotalol 40 mg twice daily. 6. DuoNebs 1 unit dose 3 times a day as needed. 7. Combivent inhaler 1 puff 4 times a day as needed. 8. Acetaminophen 500 mg 1 tablet every 6 hours as needed for mild pain. 9. Pravastatin 20 mg daily. 10. Anoro Ellipta 62.5/25 mcg per inhalation 1 inhalation daily. 11. MiraLAX 17 grams in 8 ounces of liquid daily. 12. Docusate sodium 100 mg 1 tablet daily as needed. 13. Levothyroxine 50 mcg 1 tablet daily. 14. Aspirin 81 mg daily. 15. Coumadin 2.5 mg daily. ALLERGIES: SHE HAS ALLERGIES TO DOXYCYCLINE, WHICH CAUSED NAUSEA AND VOMITING, GABAPENTIN, WHICH CAUSE HEADACHES AND FLUID RETENTION AND LYRICA, WHICH ALSO CAUSED HEADACHE AND FLUID RETENTION. FAMILY HISTORY: Noncontributory. SOCIAL HISTORY: She is . She lives alone. She smoked at least 1 pack of cigarettes a day for over 40 years. She has not smoked now in approximately 18 months. She occasionally consumes alcohol on a social basis. She is retired. REVIEW OF SYSTEMS: Negative except as outlined above. PHYSICAL EXAMINATION: VITAL SIGNS: Upon arrival to the emergency department, the patient's blood pressure was 175/78 with a heart rate of 87, respirations 19, temperature 97.6 degrees Fahrenheit. The oxygen saturation was 94% on 3 liters per minute per nasal cannula. At the current time, her blood pressure is 136/65 with a heart rate of 85, respirations are 20 and the oxygen saturation is 96% on 4 liters per minute per nasal cannula. GENERAL: This is a frail, elderly, white female sitting up on the stretcher, in mild to moderate distress due to pelvic pain. HEENT: The pupils are equal, round and reactive to light. Extraocular muscles are intact. Sclerae are anicteric. Mouth and throat reveal moist mucous membranes. No erythema or exudates. NECK: Supple without lymphadenopathy, JVD, bruits or thyromegaly. CARDIOVASCULAR: Regular rate and rhythm with a soft systolic murmur, but no rubs or gallops. LUNGS: Reveal diminished breath sounds bilaterally. There are no wheezes, rhonchi or rales. ABDOMEN: Soft, nontender, nondistended with bowel sounds present. No masses palpable. No hepatosplenomegaly. GENITOURINARY: Deferred. RECTAL: Deferred. LOWER EXTREMITIES: Reveal no appreciable edema. No calf tenderness. No Homans sign. There are absent distal pulses. No open areas. No bony deformities. NEUROLOGIC: Nonfocal. SKIN: Warm and dry with moderate pallor. The left elbow has a skin tear without active bleeding. Dressing is in place at this time. LABORATORY DATA: The basic metabolic profile was significant for sodium 146, chloride 115, BUN 24 with a creatinine of 0.98. The protein corrected calcium was 7.7, which is low. CK normal at 65. Troponin is minimally elevated at 0.06. BNP is 337. Total protein low at 5.4. White blood cell count 11.1, hemoglobin 12.0, hematocrit 37.5, platelet count 253,000. INR 1.9, APTT 30.4. The chest x-ray reveals increased interstitial markings noted, consistent with acute and/or chronic interstitial disease. Clinical correlation is recommended. The x-ray of the pelvis reveals a fracture involving the left inferior pubic ramus of indeterminate age, degenerative changes throughout the lower spine. The x-ray of the left femur reveals no acute fracture or dislocation, moderate arthritis involving the left knee. X-ray of the left elbow reveals no evidence of bony fracture. A CTA of the chest has been ordered and is pending. ASSESSMENT AND PLAN: 1. This 82-year-old white female presented status post a fall with pain in the left groin area. She has an acute inferior pubic ramus fracture. She cannot raise her left leg without significant pain. At this point, she will be admitted for pain control with intravenous Dilaudid provided as needed. I have also written for some hydrocodone/acetaminophen to be given for moderate pain and acetaminophen alone for mild pain. We will have physical therapy assess the patient for mobility and make determinations as to whether the patient will be able to return home or need to go to a longterm facility. 2. Shortness of breath. I suspect the patient had a decompensation of her congestive heart failure, likely from the stress of the acute fall and fracture. She does not appear to have any signs of acute coronary ischemia. I will order an electrocardiogram to be done. The patient was given a small dose of intravenous Lasix in the emergency department. A [place] catheter was placed in order to monitor her output closely. We will monitor intake and output and make further recommendations pending the patient's clinical response. 3. History of primary coagulopathy with history of deep venous thrombosis and pulmonary embolism. The patient will continue with Coumadin. INR is borderline. We will monitor daily and adjust the dosage of Coumadin as needed. 4. History of paroxysmal atrial fibrillation. The patient is a is in sinus rhythm. She has not had any atrial fibrillation in almost 2 years. We will continue with the sotalol. She is on Coumadin for prophylaxis since embolism. 5. Chronic obstructive pulmonary disease. The patient will be given nebulized treatments with DuoNeb and continue with Anoro. She is currently on supplemental oxygen continuously, but we will wean the oxygen as tolerated as her congestive heart failure clears. As a baseline, she uses oxygen at night at 2 liters per minute per nasal cannula. 6. History of iron deficiency anemia. The patient's hemoglobin is 12.0, which is corrected. We will check an iron level and a ferritin and we will determine if she needs any continued iron therapy. 7. Hypothyroidism. The patient continues with levothyroxine. We will check a TSH and adjust the dosage of levothyroxine as needed. 8. History of cervical and lumbar disk disease and generalized osteoarthritis. The patient normally takes acetaminophen, which has been provided along with the other pain medications. 9. History of aortic stenosis, status post transcatheter aortic valve replacement. The patient had an echocardiogram done just within the last 2 months and it revealed intact left ventricular function and a well functioning prosthesis. I have explained the patient's condition and plan of care to her and her friend who is at the bedside. Both expressed understanding and agreement. MD RADHA Estrella/josue , 06:12 PM , 06:33 PM
[2018-04-01] MEDS ORDERED: HYDROmorphone PF Inj 2 MG/ML Vial IV.PUSH PRN (19:45)
[2018-04-02] MEDS: Zolpidem Tartrate 5 MG Tablet PO SCH ×2 (04:41→21:03)
[2018-04-02 07:03] LABS: Baso % (Auto) 0.3 % (0.0-2.0); Eos # (Auto) 0.1 th/mm3 (0.0-0.4); Hematocrit 33.4 % (35.0-46.0); Hemoglobin 10.8 gm/dL (11.6-15.3); Lymph # (Auto) 1.1 th/mm3 (1.0-4.8); Lymph % (Auto) 13.4 % (9.0-44.0); Mean Corpuscular HGB Conc 32.5 % (32.0-36.0); Mean Corpuscular Hemoglobin 31.6 pg (27.0-34.0); Mean Corpuscular Volume 97.2 fL (80.0-100.0); Mean Platelet Volume 7.6 fL (7.0-11.0); Mono # (Auto) 0.8 th/mm3 (0.0-0.9); Mono % (Auto) 9.1 % (0.0-8.0); Neut # (Auto) 6.4 th/mm3 (1.8-7.7); Neut % (Auto) 76.2 % (16.0-70.0); Platelet Count 197 th/mm3 (150-450); Red Blood Count 3.43 mil/mm3 (4.00-5.30); Red Cell Distribution Width 17.3 % (11.6-17.2); White Blood Count 8.4 th/mm3 (4.0-11.0)
[2018-04-02 07:09] LABS: Prothrombin Time 19.8 sec (9.8-11.6)
[2018-04-02 07:33] LABS: Calcium 8.9 mg/dL (8.5-10.1); Carbon Dioxide 22.6 meq/L (21.0-32.0); Potassium 4.2 meq/L (3.5-5.1)
[2018-04-02 07:34] LABS: % Iron Saturation 7.1 % (20-50)
[2018-04-02 07:42] LABS: Thyroid Stimulating Hormone 1.07 uIU/mL (0.358-3.740)
[2018-04-02] MEDS: Levothyroxine 50 MCG Tablet PO SCH (07:49)
[2018-04-02] MEDS: Docusate Sodium 100 MG Capsule PO SCH (10:07)
[2018-04-02] MEDS: Umeclindinium 62.5 MCG/Vilanterol 25 MCG Inhaler INH SCH (10:13)
--- NOTE | 2018-04-02 11:47 | P.PN ---
Subjective Interval history: The patient is complaining of significant pain in the left groin. She did receive hydrocodone overnight and again this morning. She states that physical therapy tried to work with her but she was unable to sit up due to the level of pain. Her oxygen sat have been lower. Her oxygen has been turned up to 3-4 L/min per nasal cannula. Oxygen saturations now 91-92%. The patient is receiving nebulizer treatments. She received a small dose of IV Lasix in the emergency department but her diuresis has not been significant. She did receive Bumex p.o. this morning. Appetite is poor. She did not eat any of her breakfast. She states that she is having difficulty swallowing pills but typically she uses applesauce to swallow her pills. She has had no nausea or vomiting. She denies any abdominal pain. She does feel weak. Physical Exam Vital signs: Vital Signs 04/01/18 13:10 04/01/18 15:33 04/01/18 15:45 Temperature 97.6 F Pulse Rate 87 77 85 Respiratory Rate 19 19 20 Blood Pressure 175/78 H 136/65 Pulse Oximetry 94 L 96 04/01/18 20:00 04/01/18 23:53 04/02/18 00:00 Temperature 97.9 F 97.6 F Pulse Rate 90 74 82 Respiratory Rate 16 16 16 Blood Pressure 117/58 L 94/52 L Pulse Oximetry 95 93 L 04/02/18 04:00 04/02/18 08:00 04/02/18 10:10 Temperature 98.2 F 98.1 F Pulse Rate 75 73 91 H Respiratory Rate 16 17 16 Blood Pressure 108/52 L 91/44 L 102/53 L Pulse Oximetry 93 L 95 04/02/18 10:59 Temperature Pulse Rate 90 Respiratory Rate 18 Blood Pressure Pulse Oximetry Intake & Output 04/01/18 04/02/18 04/02/18 18:59 06:59 18:59 Intake Total 20 / 20 Output Total 200 / 200 Balance -180 / -180 Weight 135 lb 133 lb 13.129 oz 134 lb 7.712 oz Intake: Oral 20 / 20 Output: Urine 200 / 200 Other: Weight On Admission 134 lb 7.712 oz - Constitutional moderate distress - Routine Neck Exam Present: supple Comments: No lymphadenopathy or JVD. No bruits. - Routine Respiratory Exam Present: CTA bilaterally, diminished air movement - Routine Cardiovascular Exam Present: RRR - Routine Neurological Exam Present: alert, oriented X3 No lateralizing deficits. Speech intact. - Urinary Catheter Management Indwelling Urethral Catheter Cath placed during this visit: yes Reason for continuing: Other continuation reason Insertion date: 04/01/18 Results - Labs CBC & Chem 7: 04/02/18 06:24 04/02/18 06:24 Laboratory Results - last 24 hr 04/01/18 04/01/18 04/01/18 13:25 13:25 13:25 WBC 11.1 H RBC 3.87 L Hgb 12.0 Hct 37.5 MCV 96.9 MCH 31.0 MCHC 32.0 RDW 17.2 Plt Count 253 MPV 7.9 Neut % (Auto) 78.5 H Lymph % (Auto) 13.2 [place] % (Auto) 7.5 Eos % (Auto) 0.5 Baso % (Auto) 0.3 Neut # (Auto) 8.7 H Lymph # (Auto) 1.5 [place] # (Auto) 0.8 Eos # (Auto) 0.1 Baso # (Auto) 0.0 WBC Differential . Differential Comment Auto diff final PT INR APTT Sodium Potassium Chloride Carbon Dioxide Anion Gap BUN Creatinine Estimated GFR Random Glucose Calcium Prot Corrected Calcium Magnesium Iron TIBC % Saturation Ferritin Total Creatine Kinase 65 Troponin I 0.06 H B-Natriuretic Peptide 337 H Total Protein TSH 04/01/18 04/01/18 04/02/18 15:05 15:05 06:24 WBC 8.4 RBC 3.43 L Hgb 10.8 L Hct 33.4 L MCV 97.2 MCH 31.6 MCHC 32.5 RDW 17.3 H Plt Count 197 MPV 7.6 Neut % (Auto) 76.2 H Lymph % (Auto) 13.4 [place] % (Auto) 9.1 H Eos % (Auto) 1.0 Baso % (Auto) 0.3 Neut # (Auto) 6.4 Lymph # (Auto) 1.1 [place] # (Auto) 0.8 Eos # (Auto) 0.1 Baso # (Auto) 0.0 WBC Differential . Differential Comment Auto diff final PT 19.7 H D INR 1.9 APTT 30.4 H Sodium 146 H Potassium 3.6 Chloride 115 H Carbon Dioxide 22.0 Anion Gap 9 BUN 24 H Creatinine 0.98 Estimated GFR 54 L Random Glucose 73 L Calcium 6.8 L* Prot Corrected Calcium 7.7 L Magnesium 1.8 Iron TIBC % Saturation Ferritin Total Creatine Kinase Troponin I B-Natriuretic Peptide Total Protein 5.4 L TSH 04/02/18 04/02/18 04/02/18 06:24 06:24 06:24 WBC RBC Hgb Hct MCV MCH MCHC RDW Plt Count MPV Neut % (Auto) Lymph % (Auto) [place] % (Auto) Eos % (Auto) Baso % (Auto) Neut # (Auto) Lymph # (Auto) [place] # (Auto) Eos # (Auto) Baso # (Auto) WBC Differential Differential Comment PT 19.8 H INR 2.0 APTT Sodium 141 Potassium 4.2 Chloride 107 D Carbon Dioxide 22.6 Anion Gap 11 BUN 35 H Creatinine 1.48 H Estimated GFR 34 L Random Glucose 79 Calcium 8.9 D Prot Corrected Calcium Magnesium Iron 20 L TIBC 281 % Saturation 7.1 L Ferritin 176 Total Creatine Kinase Troponin I B-Natriuretic Peptide Total Protein TSH 1.070 - Imaging Impressions Elbow X-Ray 04/01/18 13:04 CONCLUSION: No evidence of recent bony injury. Femur X-Ray 04/01/18 13:04 CONCLUSION: 1. No acute fracture or dislocation of the left femur. 2. Moderate osteoarthritis involving left knee joint. Pelvis X-Ray 04/01/18 13:04 CONCLUSION: 1. Fracture involving the left inferior pubic ramus of indeterminate age. Clinical correlation is recommended. 2. Degenerative changes throughout the lower lumbar spine. Chest X-Ray 04/01/18 14:58 CONCLUSION: Increased interstitial markings are noted consistent with acute and/or chronic interstitial disease. Clinical correlation is recommended. Chest CTA 04/01/18 16:23 CONCLUSION: 1. No pulmonary embolus. 2. Mild pulmonary edema with small bilateral pleural effusions. 3. Left upper lobe 2.6 cm masslike opacity as described. Outpatient PET/CT is recommended if felt clinically indicated. 4. Coronary artery calcification. Assessment and Plan - Assessment (1) Closed fracture of pubic ramus Code(s): S32.599A - Other specified fracture of unspecified pubis, initial encounter for closed fracture Status: Acute Plan: The patient is still in considerable pain. She has received hydrocodone acetaminophen this morning with some pain relief. Blood pressure has been low after receiving the pain medication. Will need to use cautiously. Physical therapy has attempted to work with patient but patient unable to sit up due to level of pain. Will continue to try to mobilize patient on daily basis. Continue to try to control pain. (2) Acute on chronic diastolic heart failure Code(s): I50.33 - Acute on chronic diastolic (congestive) heart failure Status : Acute Plan: The patient developed increasing shortness of breath in the emergency department. Chest x-ray and CTA revealed pulmonary edema. She did receive a small dose of Lasix IV in the emergency department. She received Bumex p.o. this morning. [place] in place to closely monitor urine output. Unable to give patient any additional diuretics at this time due to low blood pressure. Will order echocardiogram to determine if there is been any significant change in LV function or functioning of her aortic valve which was repaired within the last 3 months. Will consult cardiology for assistance with management. (3) Iron deficiency anemia Code(s): D50.9 - Iron deficiency anemia, unspecified Status: Chronic Plan: Will check iron level and ferritin. Patient was receiving ferrous sulfate 325 mg daily at home. Will await iron studies and resume ferrous sulfate if needed. (4) Chronic kidney disease (CKD), stage III (moderate) Code(s): N18.3 - Chronic kidney disease, stage 3 (moderate) Status: Chronic Plan: BUN and creatinine were lower than patient's baseline at admission. Current BUN and creatinine are closer to patient's baseline. Will follow renal function. (5) Chronic obstructive pulmonary disease (COPD) Code(s): J44.9 - Chronic obstructive pulmonary disease, unspecified Status: Acute Plan: Patient is receiving nebulizer treatments with duo nebs, Anoro Ellipta and supplemental oxygen. Her oxygen saturations have been lower overnight, however , she is not breathing deeply due to her bed confinement and pain medication. I have ordered incentive spirometry. (6) Hypothyroidism Code(s): E03.9 - Hypothyroidism, unspecified Status: Chronic Plan: Therapeutic replacement of the thyroid. 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 She continues to take Coumadin for prophylaxis against thrombosis/embolism. The patient's INR is therapeutic. Continue with current dose of Coumadin and follow INR. 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 Patient has extensive smoking history. A PET/CT scan was recommended. This will need to be arranged as an outpatient. I did discuss the findings with the patient and she is aware that further evaluation is needed. - Plan Discharge Planning: I discussed with the patient that she will most likely need [facility] facility placement at the time of discharge as she lives alone and will be unable to care for herself or ambulate independently for quite some time due to the pelvic fracture. She expressed understanding. - Attending Attestation I had a discussion with the patient about her wishes with regard to CODE STATUS. She states that she has a DNR at home. She does not wish any CPR, electrocardioversion, intubation or mechanical ventilation if her condition were to deteriorate. CODE STATUS changed to no code. (1) Closed fracture of pubic ramus Qualifiers: Encounter type: initial encounter Laterality: left Qualified Code(s): S32.592A - Other specified fracture of left pubis, initial encounter for closed fracture (5) Chronic obstructive pulmonary disease (COPD) Qualifiers: COPD type: emphysema Emphysema type: panlobular Qualified Code(s): J43.1 - Panlobular emphysema (6) Hypothyroidism Qualifiers: Hypothyroidism type: unspecified Qualified Code(s): E03.9 - Hypothyroidism, unspecified
[2018-04-02 12:04] LABS: ABG Base Excess -1.5 mmol/L (-2-2); ABG PCO2 38 mmHg (38-42); ABG PO2 53 mmHg (61-120)
[2018-04-02] MEDS ORDERED: Sodium Chlor 0.9% Inj 500 ML IV.SIG SCH (13:00)
--- NOTE | 2018-04-02 13:22 | ECG ---
Date Performed: 04/01/2018 Time Performed: 14:10:42 PTAGE: 82 years EKG: Sinus rhythm RIGHT BUNDLE BRANCH BLOCK LEFT ANTERIOR FASCICULAR BLOCK ABNORMAL ECG PREVIOUS TRACING : 06/25/2016 08.52 DOCTOR: Zohreh Mendoza Interpretating Date/Time 04/02/2018 13:14:56
--- NOTE | 2018-04-02 18:03 | MB ---
cc: Jaiden Hatfield,Jeimy Willis MD DATE: 04/01/2018 PRIMARY CLINICAL LABORATORY MANAGER: Jeimy Roberson MD IMPRESSION: 1. Traumatic fracture, pubic ramus, left side. 2. History of valvular heart disease, status post TAVR procedure. 3. Shortness of breath, doubt congestive heart failure, likely related to chronic obstructive pulmonary disease. The patient has at least a [id number] smoking history, not currently smoking. 4. Gait instability. 5. Peripheral neuropathy. 6. Questionable history of diastolic heart failure. 7. Hypercoagulable state. 8. Multiple skin cancers. 9. History of breast cancer. 10. Cervical and lumbar radiculopathy likely responsible for her neuropathy. 11. Status post inferior vena cava filter. 12. Dyslipidemia. 13. Peripheral vascular disease with abdominal aortic aneurysm. 14. Carotid occlusive disease. I do not hear any bruits currently. 15. Mild to moderate coronary artery disease. 16. Pulmonary hypertension. 17. Hypothyroidism. 18. History of paroxysmal atrial fibrillation. RECOMMENDATIONS: 1. Continue same cardiac medications. 2. Continue warfarin. INR goal 2-3. 3. No workup needed at this point in time. She apparently has well-preserved LV function, based on previous echoes. HISTORY OF PRESENT ILLNESS: Mrs. Huff is an 82-year-old female admitted to the hospital after falling at home and experiencing pain in her left hip and pelvic area. She has a fractured pelvis. She was apparently picking up a pot of pasta, she turned, lost her balance and fell to the ground, was unable to rise. She has a history of valvular heart disease, history of peripheral vascular disease as noted above. She has a history of hypercoagulable state. She has a history of mild to moderate coronary artery disease. PAST SURGICAL HISTORY: Includes an IVC filter, status post hysterectomy and bilateral salpingo-oophorectomy, status post left breast lumpectomy with radiation on the left side. She has also apparently had a right breast lumpectomy with radiation, cervical laminectomy, lumbar laminectomy, skin cancer surgery, appendectomy, left total hip arthroplasty. She has also had BCG treatments for bladder carcinoma. ALLERGIES: DOXYCYCLINE, GABAPENTIN AND LYRICA. MEDICATIONS: Her medicines at the time of admission included: 1. Bumex 0.5 mg daily. 2. Iron supplements. 3. Ambien. 4. Vitamins for vision. 5. Sotalol 40 b.i.d. 6. Home oxygen. 7. DuoNeb inhaler. 8. Combivent inhaler. 9. Tylenol 10. Pravastatin 20 mg daily. 11. Anaro Ellipta 62.5/25 mcg 1 puff daily. 12. Stool softener. 13. Levothyroxine 50 mcg daily. 14. Aspirin 81 daily. 15. Warfarin 2.5 daily. REVIEW OF SYSTEMS: No history of myocardial infarction. She apparently does have a history of congestive heart failure attributed to diastolic dysfunction. She also has pulmonary hypertension. It is unclear if she has had a pulmonary emboli in the past. She does have a history of paroxysmal atrial fibrillation, but no important ventricular arrhythmias. She has had no recent chest pain. She has had no syncope or loss of consciousness. She has had no lower extremity edema or claudication symptoms. She has had no transneurological deficits, amaurosis fugax or claudication type symptoms. PHYSICAL EXAMINATION: GENERAL: An alert, oriented female in no apparent distress. NECK: Jugular venous pressures are normal. I do not auscultate any bruits at this point in time, the exam is limited due to oxygen. CHEST: She has diminished breath sounds in the bases. No wheezing or rales currently. CARDIAC: Demonstrates a regular rate and rhythm with a 2/6 systolic ejection murmur, which radiates to both carotids. ABDOMEN: Soft, nontender. Cannot palpate the aorta. EXTREMITIES: Free of cyanosis, clubbing, edema. Posterior tibial and dorsalis pedis pulses are palpable. LABORATORY DATA: A 12-lead electrocardiogram demonstrates sinus rhythm, complete right bundle branch block, left anterior fascicular block and secondary ST-T changes. A chest x-ray demonstrated cephalization, no effusions are reported. Heart size is normal. White cell count on admission 11,100, hematocrit 38%, platelet count 253,000. Electrolytes 146, 3.6, 115, 22 with a BUN of 24, creatinine 0.98, calcium on admission was 6.8, random glucose was 73. TSH x1. BNP 337. INR 1.9. DISCUSSION: An 82-year-old female, status post fall with pelvic fracture. No cardiac workup needed at this point in time. I would continue her home medications as prior to admission. DO GIGI Lyle/nora , 04:13 PM , 04:25 PM
[2018-04-03] MEDS: Levothyroxine 50 MCG Tablet PO SCH (05:21)
[2018-04-03 08:42] LABS: Calcium 8.8 mg/dL (8.5-10.1); Carbon Dioxide 19.4 meq/L (21.0-32.0)
[2018-04-03 08:46] LABS: % Iron Saturation 7.8 % (20-50)
[2018-04-03] MEDS: Umeclindinium 62.5 MCG/Vilanterol 25 MCG Inhaler INH SCH (10:07)
[2018-04-03] MEDS: Docusate Sodium 100 MG Capsule PO SCH (10:07)
[2018-04-03] MEDS: MethylPREDNISolone Sod Succinate Inj 40 MG/ML Vial IV.PUSH SCH ×2 (11:52→17:29)
--- NOTE | 2018-04-03 12:23 | ECHRPT ---
Indication: SHORTNESS OF BREATH CONCLUSIONS Normal left ventricular size. Mild concentric left ventricular hypertrophy. The left ventricular systolic function is grossly normal on limited imaging. [id number] mitral valve regurgitation. Moderate mitral annular calcification. Status-post percutaneous aortic valve replacement. Aortic valve mean gradient is 8 mmHg. There is moderate tricuspid regurgitation. The estimated pulmonary arterial pressure is 66.3 mmHg. Mild pulmonary valve regurgitation. BP: / HR: Rhythm: MEASUREMENTS (Male / Female) Normal Values Technical Quality: 2D ECHO LV Diastolic Diameter PLAX 4.2 cm 4.2 - 5.9 / 3.9 - 5.3 cm LV Systolic Diameter PLAX 2.7 cm IVS Diastolic Thickness 1.2 cm 0.6 - 1.0 / 0.6 - 0.9 cm LVPW Diastolic Thickness 1.2 cm 0.6 - 1.0 / 0.6 - 0.9 cm LV Relative Wall Thickness 0.6 RV Internal Dim ED PLAX 2.6 cm LVOT Diameter 2.0 cm Aortic Root Diameter 2.4 cm LA Systolic Diameter LX 3.7 cm 3.0 - 4.0 / 2.7 - 3.8 cm DOPPLER AV Peak Velocity 202.0 cm/s AV Peak Gradient 16.3 mmHg AV Mean Gradient 8.0 mmHg AV Velocity Time Integral 34.5 cm LVOT Peak Velocity 60.2 cm/s LVOT Peak Gradient 1.4 mmHg LVOT Velocity Time Integral 12.5 cm AV Area Cont Eq vti 1.1 cm AV Area Cont Eq pk 0.9 cm Mitral E Point Velocity 82.4 cm/s Mitral A Point Velocity 102.0 cm/s Mitral E to A Ratio 0.8 LV E' Lateral Velocity 7.7 cm/s Mitral E to LV E' Lateral Ratio 10.7 LV E' Septal Velocity 4.7 cm/s Mitral E to LV E' Septal Ratio 17.6 TR Peak Velocity 375.0 cm/s TR Peak Gradient 56.0 mmHg Right Atrial Pressure 10.0 mmHg Pulmonary Artery Systolic Pressu 66.3 mmHg Right Ventricular Systolic Press 66.3 mmHg PV Peak Velocity 54.1 cm/s PV Peak Gradient 1.2 mmHg FINDINGS LEFT VENTRICLE Normal left ventricular size. Mild concentric left ventricular hypertrophy. The left ventricular systolic function is grossly normal on limited imaging. RIGHT VENTRICLE Normal right ventricular size and systolic function. LEFT ATRIUM The left atrial size is normal. RIGHT ATRIUM The right atrial size is normal. ATRIAL SEPTUM No atrial level shunt is demonstrated by color flow Doppler interrogation. AORTA The aortic root and proximal ascending aorta are normal in size on limited imaging. MITRAL VALVE [id number] mitral valve regurgitation. Moderate mitral annular calcification. AORTIC VALVE Status-post percutaneous aortic valve replacement. Aortic valve mean gradient is 8 mmHg. TRICUSPID VALVE There is moderate tricuspid regurgitation. The estimated pulmonary arterial pressure is 66.3 mmHg. PULMONARY VALVE Mild pulmonary valve regurgitation. VESSELS The inferior vena cava is normal in size. PERICARDIUM No pericardial effusion. Zohreh Mendoza MD (Electronically Signed) Final Date:03 April 2018 12:22
[2018-04-03] MEDS: Dextrose 5%/NaCl 0.45% Inj 1,000 ML IV.CONT SCH (19:29)
--- NOTE | 2018-04-03 21:13 | P.PN ---
Subjective Interval history: The patient remains very weak. She has been on oxygen mask at 6-7 L/m with oxygen saturations 90-91%. Oral intake is poor. She remains in significant pain from her pelvic fracture. She is receiving the hydrocodone acetaminophen. She has declined Dilaudid. She has had no chest pain, palpitations, cough, nausea or vomiting. Urine output is adequate. No BM since admission. Active Medications Generic Name Dose Route Start Last Admin Trade Name Freq PRN Reason Stop Dose Admin Acetaminophen 650 mg 04/01/18 17:36 Tylenol PO Q4H PRN PAIN SCALE 1 TO 3 MILD Hydrocodone Bitart/Acetaminophen 1 tab 04/03/18 09:23 04/03/18 20:02 [place] 7.5/325 PO 1 tab Q4H PRN Administration PAIN SCALE 6 TO 10 Al Hydroxide/Mg Hydroxide 30 ml 04/01/18 17:36 Milk Of Magnesia Liq PO Q12H PRN Mild Constipation Albuterol 1 ampul 04/02/18 00:00 04/03/18 10:27 Duoneb Neb (Dennise) NEB Not Given Q8HR NEB DENNISE Aspirin 81 mg 04/02/18 09:00 04/03/18 10:06 Aspirin Chew PO 81 mg DAILY DENNISE Administration Bisacodyl 10 mg 04/01/18 17:36 Dulcolax Supp RECTAL DAILY PRN SEVERE CONSITIPATION Bumetanide 1 mg 04/02/18 09:00 04/03/18 10:06 Bumex PO 1 mg DAILY DENNISE Administration Docusate Sodium 100 mg 04/02/18 09:00 04/03/18 10:07 Colace PO 100 mg DAILY DENNISE Administration Ferrous Sulfate 325 mg 04/04/18 09:00 Ferosul PO DAILY DENNISE Hydromorphone HCl 0.5 mg 04/01/18 19:45 Dilaudid Pf Inj IV.PUSH Q4H PRN PAIN SCALE 7 TO 10 SEVERE Sodium Chloride 500 mls @ 0 mls/hr 04/02/18 13:00 Ns Inj IV.SIG BOLUS DENNISE Wide Open Dextrose/Sodium Chloride 1,000 mls @ 84 mls/hr 04/03/18 10:00 04/03/18 19:29 D5w/1/2 Ns Inj IV.CONT Not Given .[id number] DENNISE Lactulose 30 ml 04/01/18 17:36 Lactulose Liq PO DAILY PRN SEVERE CONSITIPATION Levothyroxine Sodium 50 mcg 04/02/18 06:00 04/03/18 05:21 Synthroid PO 50 mcg DAILY@0600 [facility] Administration Methylprednisolone Sodium Succinate 60 mg 04/03/18 10:00 04/03/18 17:29 Solumedrol Inj IV.PUSH 60 mg Q8H DENNISE Administration Ondansetron HCl 4 mg 04/01/18 17:36 Zofran Inj IV.PUSH Q6H PRN NAUSEA OR VOMITING Pravastatin Sodium 20 mg 04/01/18 21:00 04/03/18 20:02 Pravachol PO 20 mg Q24H [facility] Administration Sennosides 17.2 mg 04/01/18 17:36 Senokot PO Q12H PRN Moderate Constipation Sotalol HCl 40 mg 04/01/18 21:00 04/03/18 19:28 Betapace PO Not Given BID [facility] Umeclidinium/Vilanterol 1 puff 04/02/18 09:00 04/03/18 10:07 Anoro-Ellipta 62.5/25 Mcg Inh INH 1 puff DAILY [facility] Administration Vitamin D 1,000 unit 04/02/18 09:00 04/03/18 10:06 Vitamin D3 PO 1,000 unit DAILY [facility] Administration Warfarin Sodium 2.5 mg 04/01/18 20:00 04/03/18 15:57 Coumadin PO 2.5 mg DAILY@1600 [facility] Administration Zolpidem Tartrate 5 mg 04/01/18 21:00 04/02/18 21:03 Ambien PO Not Given HS [facility] Physical Exam Vital signs: Vital Signs 04/02/18 23:45 04/02/18 23:52 04/03/18 00:00 Temperature 98.2 F Pulse Rate 79 75 77 Respiratory Rate 14 18 Blood Pressure 110/54 L Pulse Oximetry 92 L 97 04/03/18 03:58 04/03/18 04:00 04/03/18 04:51 Temperature 98.0 F Pulse Rate 77 82 Respiratory Rate 20 17 Blood Pressure 129/62 Pulse Oximetry 94 L 04/03/18 06:00 04/03/18 08:00 04/03/18 12:00 Temperature 98.1 F 99.2 F Pulse Rate 81 99 H Respiratory Rate 17 18 18 Blood Pressure 109/55 L 112/57 L Pulse Oximetry 93 L 90 L 04/03/18 13:24 04/03/18 16:00 04/03/18 16:39 Temperature 98.8 F Pulse Rate 97 H 95 H Respiratory Rate 20 20 Blood Pressure 147/70 H Pulse Oximetry 92 L 92 L 04/03/18 16:40 04/03/18 20:13 Temperature Pulse Rate Respiratory Rate Blood Pressure Pulse Oximetry 95 97 Intake & Output 04/03/18 04/03/18 04/04/18 06:59 18:59 06:59 Intake Total 100 / 100 Output Total 1100 / 1100 300 / 300 Balance -1100 / -1100 -200 / -200 Weight 134 lb 7.712 oz Intake: Oral 100 / 100 Output: Urine 550 / 550 Urine Amount (Catheter) 550 / 550 300 / 300 Indwelling Urethral Catheter 550 / 550 300 / 300 Other: Date of Last Bowel Movement 04/01/18 04/01/18 04/01/18 # Bowel Movements 0 - Constitutional Comments: Frail-appearing elderly white female appearing weak and in moderate distress due to pain from pelvic fracture - Routine Neck Exam Present: supple Comments: No lymphadenopathy, JVD, bruits or thyromegaly - Routine Respiratory Exam Comments: Moderately reduced air exchange bilaterally otherwise clear to auscultation. No wheezes, rhonchi or rales - Routine Cardiovascular Exam Comments: Regular rate and rhythm without murmurs.No edema in the lower extremities - Urinary Catheter Management Indwelling Urethral Catheter Cath placed during this visit: yes Reason for continuing: Hourly intake/output Insertion date: 04/01/18 Results - Labs CBC & Chem 7: 04/02/18 06:24 04/03/18 06:30 Laboratory Results - last 24 hr 04/03/18 04/03/18 06:30 07:56 Sodium 141 Potassium 5.0 D Chloride 109 H Carbon Dioxide 19.4 L Anion Gap 13 BUN 45 H Creatinine 1.59 H Estimated GFR 31 L Random Glucose 87 Calcium 8.8 Iron 20 L TIBC 256 % Saturation 7.8 L Ferritin 331 H B-Natriuretic Peptide 942 H - Imaging Echocardiogram reveals grossly intact LV function. No significant aortic valvular gradient. Elevated right ventricular systolic pressure consistent with pulmonary hypertension. Assessment and Plan - Assessment (1) Closed fracture of pubic ramus Code(s): S32.599A - Other specified fracture of unspecified pubis, initial encounter for closed fracture Status: Acute Plan: The patient remains in significant pain. I am going to increase the hydrocodone acetaminophen 7.5/325 mg one tablet every 4 hours as needed. I hesitate to use stronger narcotic analgesics due to the borderline blood pressure in patient's compromised Respiratory status. (2) Acute on chronic diastolic heart failure Code(s): I50.33 - Acute on chronic diastolic (congestive) heart failure Status : Acute Plan: Review cardiology consultation. Dr. Hatfield Does not feel the patient has acute diastolic heart failure. Echocardiogram reveals grossly intact LV function the patient with pulmonary hypertension. Will continue with Bumex. (3) Iron deficiency anemia Code(s): D50.9 - Iron deficiency anemia, unspecified Status: Chronic Plan: Iron level is low. Will resume ferrous sulfate 325 mg daily. Follow H&H. (4) Chronic kidney disease (CKD), stage III (moderate) Code(s): N18.3 - Chronic kidney disease, stage 3 (moderate) Status: Chronic Plan: BUN and creatinine are essentially at baseline. Will follow. I have started some IV fluids as patient's by mouth intake is poor. (5) Chronic obstructive pulmonary disease (COPD) Code(s): J44.9 - Chronic obstructive pulmonary disease, unspecified Status: Acute Plan: The patient is experiencing Significant hypoxemia. I have added Solu-Medrol IV. Continue with nebulizer treatments and incentive spirometry. CTA of the chest did not reveal any focal infiltrates. There were some small pleural effusions. No evidence of any urinary infection. We will continue to treat aggressively for COPD. (6) Hypothyroidism Code(s): E03.9 - Hypothyroidism, unspecified Status: Chronic Plan: Therapeutic replacement of the thyroid. 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 She continues to take Coumadin for prophylaxis against thrombosis/embolism. Continue with current dose of Coumadin and follow INR. 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 Patient has extensive smoking history. A PET/CT scan was recommended. This will need to be arranged as an outpatient. I did discuss the findings with the patient and she is aware that further evaluation is needed. - Plan Discharge Planning: The patient's prognosis is guarded. She is a no code per her request. If her condition improves, will consider discharge to shelter facility. If she has no improvement in respiratory status continues to be extremely weak with poor oral intake, we will need to discuss with the patient her wishes with regard to continued aggressiveness of care. She may benefit from hospice referral. Prognosis is guarded at best. (1) Closed fracture of pubic ramus Qualifiers: Encounter type: initial encounter Laterality: left Qualified Code(s): S32.592A - Other specified fracture of left pubis, initial encounter for closed fracture (5) Chronic obstructive pulmonary disease (COPD) Qualifiers: COPD type: emphysema Emphysema type: panlobular Qualified Code(s): J43.1 - Panlobular emphysema (6) Hypothyroidism Qualifiers: Hypothyroidism type: unspecified Qualified Code(s): E03.9 - Hypothyroidism, unspecified
[2018-04-03] MEDS: Zolpidem Tartrate 5 MG Tablet PO SCH (22:58)
[2018-04-04] MEDS: MethylPREDNISolone Sod Succinate Inj 40 MG/ML Vial IV.PUSH SCH ×3 (01:51→17:36)
[2018-04-04] MEDS: Dextrose 5%/NaCl 0.45% Inj 1,000 ML IV.CONT SCH ×2 (01:52→17:44)
[2018-04-04 04:42] LABS: INR 3.6 Ratio; Prothrombin Time 36.2 sec (9.8-11.6)
[2018-04-04 04:59] LABS: Calcium 9.2 mg/dL (8.5-10.1); Carbon Dioxide 23.3 meq/L (21.0-32.0); Potassium 4.3 meq/L (3.5-5.1)
[2018-04-04] MEDS: Levothyroxine 50 MCG Tablet PO SCH (06:13)
[2018-04-04] MEDS: Ferrous Sulfate 325 MG Tablet PO SCH (09:29)
[2018-04-04] MEDS: Umeclindinium 62.5 MCG/Vilanterol 25 MCG Inhaler INH SCH (09:29)
--- NOTE | 2018-04-04 13:13 | P.PN ---
Subjective Interval history: The patient is out of bed in a chair. Was transferred with physical therapy. The patient reports moderate to severe pain in the left groin due to the pubic ramus fracture. She is using the hydrocodone acetaminophen as needed. Respiratory status has improved. Oxygen saturations are 95-98% on 6 L/min oxygen mask. Minimal cough. Denies any chest pain or palpitations. Oral intake remains poor. Patient states that she is having difficulty swallowing. She is drinking Ensure without a problem. Urine output has been adequate. Patient receiving IV fluids due to poor oral intake. Active Medications Generic Name Dose Route Start Last Admin Trade Name Freq PRN Reason Stop Dose Admin Acetaminophen 650 mg 04/01/18 17:36 Tylenol PO Q4H PRN PAIN SCALE 1 TO 3 MILD Hydrocodone Bitart/Acetaminophen 1 tab 04/03/18 09:23 04/04/18 04:00 [place] 7.5/325 PO 1 tab Q4H PRN Administration PAIN SCALE 6 TO 10 Al Hydroxide/Mg Hydroxide 30 ml 04/01/18 17:36 Milk Of Magnesia Liq PO Q12H PRN Mild Constipation Albuterol 1 ampul 04/02/18 00:00 04/04/18 09:16 Duoneb Neb (Dennise) NEB 1 ampul Q8HR NEB DENNISE Administration Aspirin 81 mg 04/02/18 09:00 04/04/18 09:28 Aspirin Chew PO 81 mg DAILY DENNISE Administration Bisacodyl 10 mg 04/01/18 17:36 Dulcolax Supp RECTAL DAILY PRN SEVERE CONSITIPATION Bumetanide 1 mg 04/02/18 09:00 04/04/18 09:29 Bumex PO 1 mg DAILY DENNISE Administration Ferrous Sulfate 325 mg 04/04/18 09:00 04/04/18 09:29 Ferosul PO 325 mg DAILY DENNISE Administration Hydromorphone HCl 0.5 mg 04/01/18 19:45 Dilaudid Pf Inj IV.PUSH Q4H PRN PAIN SCALE 7 TO 10 SEVERE Sodium Chloride 500 mls @ 0 mls/hr 04/02/18 13:00 Ns Inj IV.SIG BOLUS DENNISE Wide Open Dextrose/Sodium Chloride 1,000 mls @ 84 mls/hr 04/03/18 10:00 04/04/18 01:52 D5w/1/2 Ns Inj IV.CONT 84 mls/hr .[id number] [facility] Administration Lactulose 30 ml 04/01/18 17:36 Lactulose Liq PO DAILY PRN SEVERE CONSITIPATION Levothyroxine Sodium 50 mcg 04/02/18 06:00 04/04/18 06:13 Synthroid PO 50 mcg DAILY@0600 [facility] Administration Methylprednisolone Sodium Succinate 60 mg 04/03/18 10:00 04/04/18 01:51 Solumedrol Inj IV.PUSH 60 mg Q8H DENNISE Administration Ondansetron HCl 4 mg 04/01/18 17:36 Zofran Inj IV.PUSH Q6H PRN NAUSEA OR VOMITING Pravastatin Sodium 20 mg 04/01/18 21:00 04/03/18 20:02 Pravachol PO 20 mg Q24H [facility] Administration Senna/Docusate Sodium 1 tab 04/04/18 21:00 Leila-Colace PO BID [facility] Sennosides 17.2 mg 04/01/18 17:36 Senokot PO Q12H PRN Moderate Constipation Sotalol HCl 40 mg 04/01/18 21:00 04/04/18 09:29 Betapace PO 40 mg BID [facility] Administration Umeclidinium/Vilanterol 1 puff 04/02/18 09:00 04/04/18 09:29 Anoro-Ellipta 62.5/25 Mcg Inh INH 1 puff DAILY [facility] Administration Vitamin D 1,000 unit 04/02/18 09:00 04/04/18 09:29 Vitamin D3 PO 1,000 unit DAILY [facility] Administration Zolpidem Tartrate 5 mg 04/01/18 21:00 04/03/18 22:58 Ambien PO Not Given [facility] Physical Exam Vital signs: Vital Signs 04/03/18 13:24 04/03/18 16:00 04/03/18 16:39 Temperature 98.8 F Pulse Rate 97 H 95 H Respiratory Rate 20 20 Blood Pressure 147/70 H Pulse Oximetry 92 L 92 L 04/03/18 16:40 04/03/18 19:54 04/03/18 20:00 Temperature 98.7 F Pulse Rate 95 H 98 H Respiratory Rate 19 Blood Pressure 135/76 Pulse Oximetry 95 97 04/03/18 20:13 04/03/18 20:32 04/04/18 00:00 Temperature 97.3 F L Pulse Rate 97 H Respiratory Rate 17 20 Blood Pressure 156/72 H Pulse Oximetry 97 94 L 04/04/18 00:36 04/04/18 00:43 04/04/18 04:00 Temperature 97.7 F Pulse Rate 88 90 82 Respiratory Rate 20 19 Blood Pressure 144/64 H Pulse Oximetry 97 04/04/18 04:05 04/04/18 04:30 04/04/18 08:00 Temperature 98.3 F Pulse Rate 80 77 Respiratory Rate 18 24 Blood Pressure 117/78 Pulse Oximetry 93 L 04/04/18 09:18 Temperature Pulse Rate 75 Respiratory Rate 17 Blood Pressure Pulse Oximetry 94 L Intake & Output 04/03/18 04/04/18 04/04/18 18:59 06:59 18:59 Intake Total 100 / 100 Output Total 300 / 300 275 / 275 Balance -200 / -200 -275 / -275 Weight 134 lb 7.712 oz Intake: Oral 100 / 100 Output: Urine Amount (Catheter) 300 / 300 275 / 275 Indwelling Urethral Catheter 300 / 300 275 / 275 Other: Date of Last Bowel Movement 04/01/18 04/01/18 # Bowel Movements 0 - Constitutional moderate distress Comments: Due to left groin pain - Routine Neck Exam Present: supple Comments: No lymphadenopathy, JVD or bruits. - Routine Respiratory Exam Present: CTA bilaterally, diminished air movement - Routine Cardiovascular Exam Present: RRR - Routine Extremities Exam Comments: No edema. No calf tenderness or Homans sign. - Urinary Catheter Management Indwelling Urethral Catheter Cath placed during this visit: yes Reason for continuing: Hourly intake/output Insertion date: 04/01/18 Results - Labs CBC & Chem 7: 04/02/18 06:24 04/04/18 03:51 Laboratory Results - last 24 hr 04/04/18 04/04/18 03:51 03:51 PT 36.2 H D INR 3.6 Sodium 141 Potassium 4.3 Chloride 105 Carbon Dioxide 23.3 Anion Gap 13 BUN 52 H Creatinine 1.53 H Estimated GFR 32 L Random Glucose 169 H Calcium 9.2 Assessment and Plan - Assessment (1) Closed fracture of pubic ramus Code(s): S32.599A - Other specified fracture of unspecified pubis, initial encounter for closed fracture Status: Acute Plan: The patient remains in significant pain. Continue to use hydrocodone acetaminophen as needed. Patient is out of bed today. Continue to encourage patient to increase mobility. (2) Iron deficiency anemia Code(s): D50.9 - Iron deficiency anemia, unspecified Status: Chronic Plan: Iron level is low. Will resume ferrous sulfate 325 mg daily. Follow H&H. (3) Chronic obstructive pulmonary disease (COPD) Code(s): J44.9 - Chronic obstructive pulmonary disease, unspecified Status: Chronic Plan: The patient has better oxygenation today since she has been up out of bed. Will begin to wean supplemental oxygen. Continue with Solu-Medrol and nebulizer treatments. Plan to transition to oral steroids within the next couple of days. I have encouraged incentive spirometry. (4) Chronic kidney disease (CKD), stage III (moderate) Code(s): N18.3 - Chronic kidney disease, stage 3 (moderate) Status: Chronic Plan: BUN and creatinine are stable. Will follow. (5) Hypothyroidism Code(s): E03.9 - Hypothyroidism, unspecified Status: Chronic Plan: Therapeutic replacement of the thyroid. (6) Peripheral vascular disease Code(s): I73.9 - Peripheral vascular disease, unspecified Status: Acute Plan: Patient is asymptomatic. Will follow. 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 INR is supratherapeutic. Coumadin discontinued for now. Will resume when INR is therapeutic. 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 Patient has extensive smoking history. A PET/CT scan was recommended. This will need to be arranged as an outpatient. I did discuss the findings with the patient and she is aware that further evaluation is needed. (9) Dysphasia Code(s): R47.02 - Dysphasia Status: Acute Plan: The patient is complaining of dysphasia. Will ask speech therapy to evaluate the patient's swallowing function and recommend dietary consistency. In the meantime will place patient on pured diet. - Plan Discharge Planning: The patient has had improvement in her respiratory status. She is now out of bed in a chair. Once respiratory status has stabilized, will plan to transfer to a snf facility for progressive rehabilitation. (1) Closed fracture of pubic ramus Qualifiers: Encounter type: initial encounter Laterality: left Qualified Code(s): S32.592A - Other specified fracture of left pubis, initial encounter for closed fracture (3) Chronic obstructive pulmonary disease (COPD) Qualifiers: COPD type: emphysema Emphysema type: panlobular Qualified Code(s): J43.1 - Panlobular emphysema (5) Hypothyroidism Qualifiers: Hypothyroidism type: unspecified Qualified Code(s): E03.9 - Hypothyroidism, unspecified
[2018-04-04] MEDS: Zolpidem Tartrate 5 MG Tablet PO SCH (21:00)
[2018-04-04] MEDS: Senna/Docusate Sodium 8.6/50 MG Tablet PO SCH (23:46)
[2018-04-05] MEDS: MethylPREDNISolone Sod Succinate Inj 40 MG/ML Vial IV.PUSH SCH ×2 (03:12→09:32)
[2018-04-05] MEDS: Dextrose 5%/NaCl 0.45% Inj 1,000 ML IV.CONT SCH ×2 (03:14→09:32)
[2018-04-05 05:19] LABS: Baso % (Auto) 0.1 % (0.0-2.0); Hematocrit 31.1 % (35.0-46.0); Hemoglobin 10.2 gm/dL (11.6-15.3); Lymph # (Auto) 0.5 th/mm3 (1.0-4.8); Lymph % (Auto) 5.1 % (9.0-44.0); Mean Corpuscular HGB Conc 32.7 % (32.0-36.0); Mean Corpuscular Hemoglobin 31.2 pg (27.0-34.0); Mean Corpuscular Volume 95.3 fL (80.0-100.0); Mean Platelet Volume 8.5 fL (7.0-11.0); Mono # (Auto) 0.6 th/mm3 (0.0-0.9); Mono % (Auto) 6.4 % (0.0-8.0); Neut # (Auto) 8.3 th/mm3 (1.8-7.7); Neut % (Auto) 88.4 % (16.0-70.0); Platelet Count 211 th/mm3 (150-450); Red Blood Count 3.26 mil/mm3 (4.00-5.30); Red Cell Distribution Width 16.7 % (11.6-17.2); White Blood Count 9.4 th/mm3 (4.0-11.0)
[2018-04-05 05:24] LABS: INR 3.8 Ratio; Prothrombin Time 38.1 sec (9.8-11.6)
[2018-04-05 05:51] LABS: Calcium 8.9 mg/dL (8.5-10.1); Carbon Dioxide 25.8 meq/L (21.0-32.0); Potassium 4.4 meq/L (3.5-5.1)
[2018-04-05] MEDS: Levothyroxine 50 MCG Tablet PO SCH (06:00)
[2018-04-05] MEDS: Ferrous Sulfate 325 MG Tablet PO SCH (08:42)
[2018-04-05] MEDS: Umeclindinium 62.5 MCG/Vilanterol 25 MCG Inhaler INH SCH (08:42)
[2018-04-05] MEDS: Senna/Docusate Sodium 8.6/50 MG Tablet PO SCH ×2 (08:42→22:04)
--- NOTE | 2018-04-05 13:03 | P.PN ---
Subjective Interval history: The patient was out of bed for several hours yesterday in a chair. She has not yet been up today. She is receiving the hydrocodone acetaminophen which has helped with the pain but she still states she is in significant discomfort especially with any movement. The patient has had a poor appetite. She was evaluated by speech therapy who did not feel that she had any signs or symptoms of aspiration. She is currently on a pured diet with Ensure 1 bottle 3 times a day. She is not drinking the Ensure consistently. She continues to receive IV fluids. She is now on nasal cannula at 4-5 L/min. Oxygen saturations have remained adequate. She has had no cough or sputum production. She denies any chest pain or palpitations. Patient continues to receive nebulizer treatments and Solu-Medrol IV. She does complain of some posterior neck discomfort. She states she has had a history of similar in the past. She has a known history of cervical DJD and disc disease and had a previous cervical fusion. Active Medications Generic Name Dose Route Start Last Admin Trade Name Freq PRN Reason Stop Dose Admin Acetaminophen 650 mg 04/01/18 17:36 Tylenol PO Q4H PRN PAIN SCALE 1 TO 3 MILD Hydrocodone Bitart/Acetaminophen 1 tab 04/03/18 09:23 04/04/18 23:45 [place] 7.5/325 PO 1 tab Q4H PRN Administration PAIN SCALE 6 TO 10 Al Hydroxide/Mg Hydroxide 30 ml 04/01/18 17:36 Milk Of Magnesia Liq PO Q12H PRN Mild Constipation Albuterol 1 ampul 04/02/18 00:00 04/05/18 09:13 Duoneb Neb (Dennise) NEB 1 ampul Q8HR NEB DENNISE Administration Aspirin 81 mg 04/02/18 09:00 04/05/18 08:42 Aspirin Chew PO 81 mg DAILY DENNISE Administration Bisacodyl 10 mg 04/01/18 17:36 Dulcolax Supp RECTAL DAILY PRN SEVERE CONSITIPATION Bumetanide 1 mg 04/02/18 09:00 04/05/18 08:42 Bumex PO 1 mg DAILY DENNISE Administration Ferrous Sulfate 325 mg 04/04/18 09:00 04/05/18 08:42 Ferosul PO 325 mg DAILY DENNISE Administration Hydromorphone HCl 0.5 mg 04/01/18 19:45 Dilaudid Pf Inj IV.PUSH Q4H PRN PAIN SCALE 7 TO 10 SEVERE Sodium Chloride 500 mls @ 0 mls/hr 04/02/18 13:00 Ns Inj IV.SIG BOLUS DENNISE Wide Open Dextrose/Sodium Chloride 1,000 mls @ 84 mls/hr 04/03/18 10:00 04/05/18 09:32 D5w/1/2 Ns Inj IV.CONT 84 mls/hr .[id number] DENNISE Administration Lactulose 30 ml 04/01/18 17:36 Lactulose Liq PO DAILY PRN SEVERE CONSITIPATION Levothyroxine Sodium 50 mcg 04/02/18 06:00 04/05/18 06:00 Synthroid PO 50 mcg DAILY@0600 DENNISE Administration Methylprednisolone Sodium Succinate 60 mg 04/03/18 10:00 04/05/18 09:32 Solumedrol Inj IV.PUSH 60 mg Q8H DENNISE Administration Ondansetron HCl 4 mg 04/01/18 17:36 04/04/18 17:47 Zofran Inj IV.PUSH 4 mg Q6H PRN Administration NAUSEA OR VOMITING Pravastatin Sodium 20 mg 04/01/18 21:00 04/04/18 23:46 Pravachol PO 20 mg Q24H DENNISE Administration Senna/Docusate Sodium 1 tab 04/04/18 21:00 04/05/18 08:42 Leila-Colace PO 1 tab BID DENNISE Administration Sennosides 17.2 mg 04/01/18 17:36 Senokot PO Q12H PRN Moderate Constipation Sotalol HCl 40 mg 04/01/18 21:00 04/05/18 08:42 Betapace PO 40 mg BID DENNISE Administration Umeclidinium/Vilanterol 1 puff 04/02/18 09:00 04/05/18 08:42 Anoro-Ellipta 62.5/25 Mcg Inh INH 1 puff DAILY DENNISE Administration Vitamin D 1,000 unit 04/02/18 09:00 04/05/18 08:42 Vitamin D3 PO 1,000 unit DAILY DENNISE Administration Zolpidem Tartrate 5 mg 04/01/18 21:00 04/04/18 21:00 Ambien PO 5 mg HS DENNISE Administration Physical Exam Vital signs: Vital Signs 04/04/18 16:00 04/04/18 16:26 04/04/18 20:00 Temperature 97.6 F 98.3 F Pulse Rate 70 75 82 Respiratory Rate 16 18 17 Blood Pressure 114/62 122/70 Pulse Oximetry 92 L 96 04/05/18 00:00 04/05/18 00:29 04/05/18 00:31 Temperature 97.8 F Pulse Rate 80 63 Respiratory Rate 16 20 Blood Pressure 183/83 H Pulse Oximetry 97 97 04/05/18 04:00 04/05/18 08:00 04/05/18 09:21 Temperature 97.5 F L 98.8 F Pulse Rate 84 70 Respiratory Rate 16 16 Blood Pressure 138/72 177/93 H Pulse Oximetry 94 L 92 L 96 04/05/18 12:00 Temperature 97.6 F Pulse Rate 73 Respiratory Rate 18 Blood Pressure 150/65 H Pulse Oximetry 93 L Intake & Output 04/04/18 04/05/18 04/05/18 18:59 06:59 18:59 Intake Total 1000 / 1000 900 / 900 1000 / 1000 Output Total 800 / 800 500 / 500 Balance 200 / 200 400 / 400 1000 / 1000 Weight 141 lb 1.533 oz Intake: IV 1000 / 1000 900 / 900 1000 / 1000 D5W/1/2 NS Inj 1,000 ML @ 84 1000 / 1000 900 / 900 1000 / 1000 mls/hr IV.CONT .[id number] [facility] Rx# :[id number] Output: Urine 800 / 800 500 / 500 Other: Date of Last Bowel Movement 04/01/18 04/01/18 04/01/18 - Constitutional Comments: Frail-appearing elderly white female appearing weak and in mild distress due to left hip/groin pain - Routine Neck Exam Present: supple, carotid bruit, trachea midline Comments: Posterior neck is nontender to palpation. - Routine Respiratory Exam Present: CTA bilaterally Comments: Moderately reduced air exchange bilaterally - Routine Cardiovascular Exam Present: RRR Comments: No murmur - Routine Abdominal Exam Present: soft Comments: Nontender, nondistended with bowel sounds present - Urinary Catheter Management Indwelling Urethral Catheter Cath placed during this visit: yes Reason for continuing: Hourly intake/output Insertion date: 04/01/18 Results - Labs CBC & Chem 7: 04/05/18 03:39 04/05/18 03:39 Laboratory Results - last 24 hr 10/09/18 10/09/18 10/09/18 03:39 03:39 03:39 WBC 9.4 RBC 3.26 L Hgb 10.2 L Hct 31.1 L MCV 95.3 MCH 31.2 MCHC 32.7 RDW 16.7 Plt Count 211 MPV 8.5 Neut % (Auto) 88.4 H Lymph % (Auto) 5.1 L [place] % (Auto) 6.4 Eos % (Auto) 0.0 Baso % (Auto) 0.1 Neut # (Auto) 8.3 H Lymph # (Auto) 0.5 L [place] # (Auto) 0.6 Eos # (Auto) 0.0 Baso # (Auto) 0.0 WBC Differential . Differential Comment Auto diff final PT 38.1 H INR 3.8 Sodium 140 Potassium 4.4 Chloride 105 Carbon Dioxide 25.8 Anion Gap 9 BUN 54 H Creatinine 1.33 H Estimated GFR 38 L Random Glucose 167 H Calcium 8.9 Assessment and Plan - Assessment (1) Closed fracture of pubic ramus Code(s): S32.599A - Other specified fracture of unspecified pubis, initial encounter for closed fracture Status: Acute Plan: The patient remains in significant pain although she was witnessed slightly flexing her left hip today which she was unable to do 2 days ago. Continue with hydrocodone acetaminophen. Continue with PT. Out of bed as much as possible. (2) COPD with acute exacerbation Code(s): J44.1 - Chronic obstructive pulmonary disease with (acute) exacerbation Status: Acute Plan: Respiratory status is slowly improving. Continue with nebulizer treatments. Reduce Solu-Medrol. Continue to try to wean oxygen as tolerated. Patient needs to be out of bed in order to reduce atelectasis which would help with oxygenation. (3) Iron deficiency anemia Code(s): D50.9 - Iron deficiency anemia, unspecified Status: Chronic Plan: H&H is stable. Continue with iron supplement. (4) Chronic kidney disease (CKD), stage III (moderate) Code(s): N18.3 - Chronic kidney disease, stage 3 (moderate) Status: Chronic Plan: BUN and creatinine are stable. Will follow. (5) Hypothyroidism Code(s): E03.9 - Hypothyroidism, unspecified Status: Chronic Plan: Therapeutic replacement of the thyroid. (6) Peripheral vascular disease Code(s): I73.9 - Peripheral vascular disease, unspecified Status: Acute Plan: Patient is asymptomatic. Will follow. 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 INR is supratherapeutic. Coumadin discontinued for now. Will resume when INR is therapeutic. 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 Patient has extensive smoking history. A PET/CT scan was recommended. This will need to be arranged as an outpatient. I did discuss the findings with the patient and she is aware that further evaluation is needed. (9) Dysphasia Code(s): R47.02 - Dysphasia Status: Acute Plan: Speech therapy has evaluated the patient and finds no signs or symptoms of aspiration. The patient is going to continue with a pured diet as she is fatigued and finds it easier to swallow. - Plan Discharge Planning: The patient's condition has improved somewhat. Her respiratory status still remains tenuous. Will need to wean patient off of IV steroids and transition to oral steroids. In addition, p.o. intake is poor. She needs to increase oral intake in order for IV fluids to be discontinued. I have discussed with the patient the importance of eating and drinking even if she is not hungry or thirsty. She expressed understanding. (1) Closed fracture of pubic ramus Qualifiers: Encounter type: initial encounter Laterality: left Qualified Code(s): S32.592A - Other specified fracture of left pubis, initial encounter for closed fracture (3) Iron deficiency anemia Qualifiers: Iron deficiency anemia type: unspecified iron deficiency Qualified Code(s): D50.9 - Iron deficiency anemia, unspecified (5) Hypothyroidism Qualifiers: Hypothyroidism type: unspecified Qualified Code(s): E03.9 - Hypothyroidism, unspecified
--- NOTE | 2018-04-05 14:30 | P.PNWCN ---
Wound Care Nurse Consult Description: Wound consult ordered by for wound management Communicated with: Chelita OMALLEY, Recommendation: 1. Ensure heels are floated on pillow and avoid direct contact with mattress surface. 2. Skin prep left heel BID Additional information: Patient was seen today by underwriter mortgage loan for wound management of left heel.Patient alert in bed in no acute distress .Bilateral calcaneus visualized by underwriter mortgage loan . Left calcaneus noted to have intact DTI measuring 1.8cm x 1.5cm x intact tissue.Heels floated on pillow avoiding contact with mattress surface.Skin prep applied and left open to air .Patient tolerated wound care well. Wound/Pressure Injury - Wound Left Heel Wound Staging: DTI Wound Assessment: Admission Wound Type: Pressure Injury Is This a Chronic Wound: No Requested from Provider a Wound Care Consult: No (Kenia OMALLEY,[facility] seen 04/05) Length (cm): 1.8 Width (cm): 1.5 Depth (cm): 0 Wound Bed Appearance: Red Surrounding Tissue Appearance: Dark Red
[2018-04-05] MEDS: MethylPREDNISolone Sod Succinate Inj 125 MG/2 ML Vial IV.PUSH SCH (22:04)
[2018-04-05] MEDS: Zolpidem Tartrate 5 MG Tablet PO SCH (22:10)
[2018-04-06] MEDS: Dextrose 5%/NaCl 0.45% Inj 1,000 ML IV.CONT SCH ×2 (04:40→09:30)
[2018-04-06] MEDS: Levothyroxine 50 MCG Tablet PO SCH (06:22)
[2018-04-06 06:46] LABS: INR 2.3 Ratio; Prothrombin Time 23.7 sec (9.8-11.6)
[2018-04-06 06:49] LABS: Carbon Dioxide 27.3 meq/L (21.0-32.0); Potassium 4.3 meq/L (3.5-5.1)
[2018-04-06] MEDS: Ferrous Sulfate 325 MG Tablet PO SCH (09:53)
[2018-04-06] MEDS: Senna/Docusate Sodium 8.6/50 MG Tablet PO SCH ×2 (09:53→21:40)
[2018-04-06] MEDS: Umeclindinium 62.5 MCG/Vilanterol 25 MCG Inhaler INH SCH (09:54)
[2018-04-06] MEDS: MethylPREDNISolone Sod Succinate Inj 125 MG/2 ML Vial IV.PUSH SCH (09:54)
--- NOTE | 2018-04-06 13:30 | P.PN ---
Subjective Interval history: The patient reports her pain in the left groin is doing better. She is out of bed in a chair this morning. She was confused this morning and needed to be reoriented. She remains on oxygen at 4-5 L/min per nasal cannula. Any exertion causes desaturation into the 80s and takes several minutes to recover with rest. She denies any cough, chest pain, palpitations. Appetite remains fair at best. Nursing staff and family are encouraging her to increase her p.o. intake. Had bowel movement yesterday. Urine output is adequate. Active Medications Generic Name Dose Route Start Last Admin Trade Name Freq PRN Reason Stop Dose Admin Acetaminophen 650 mg 04/01/18 17:36 04/05/18 22:05 Tylenol PO 650 mg Q4H PRN Administration PAIN SCALE 1 TO 3 MILD Hydrocodone Bitart/Acetaminophen 1 tab 04/03/18 09:23 04/06/18 09:53 [place] 7.5/325 PO 1 tab Q4H PRN Administration PAIN SCALE 6 TO 10 Al Hydroxide/Mg Hydroxide 30 ml 04/01/18 17:36 Milk Of Magnesia Liq PO Q12H PRN Mild Constipation Aspirin 81 mg 04/02/18 09:00 04/06/18 09:53 Aspirin Chew PO 81 mg DAILY DOMINIQUE Administration Bisacodyl 10 mg 04/01/18 17:36 Dulcolax Supp RECTAL DAILY PRN SEVERE CONSITIPATION Bumetanide 1 mg 04/02/18 09:00 04/06/18 09:53 Bumex PO 1 mg DAILY DOMINIQUE Administration Ferrous Sulfate 325 mg 04/04/18 09:00 04/06/18 09:53 Ferosul PO 325 mg DAILY DOMINIQUE Administration Hydromorphone HCl 0.5 mg 04/01/18 19:45 Dilaudid Pf Inj IV.PUSH Q4H PRN PAIN SCALE 7 TO 10 SEVERE Sodium Chloride 500 mls @ 0 mls/hr 04/02/18 13:00 Ns Inj IV.SIG BOLUS DOMINIQUE Wide Open Lactulose 30 ml 04/01/18 17:36 Lactulose Liq PO DAILY PRN SEVERE CONSITIPATION Levothyroxine Sodium 50 mcg 04/02/18 06:00 04/06/18 06:22 Synthroid PO 50 mcg DAILY@0600 DOMINIQUE Administration Ondansetron HCl 4 mg 10/05/18 17:36 04/04/18 17:47 Zofran Inj IV.PUSH 4 mg Q6H PRN Administration NAUSEA OR VOMITING Pravastatin Sodium 20 mg 04/01/18 21:00 04/05/18 22:04 Pravachol PO 20 mg Q24H DOMINIQUE Administration Prednisone 20 mg 04/07/18 09:00 Deltasone PO DAILY DOMINIQUE Senna/Docusate Sodium 1 tab 04/04/18 21:00 04/06/18 09:53 Leila-Colace PO 1 tab BID [facility] Administration Sennosides 17.2 mg 04/01/18 17:36 Senokot PO Q12H PRN Moderate Constipation Sotalol HCl 40 mg 04/01/18 21:00 04/06/18 09:53 Betapace PO 40 mg BID [facility] Administration Umeclidinium/Vilanterol 1 puff 04/02/18 09:00 04/06/18 09:54 Anoro-Ellipta 62.5/25 Mcg Inh INH 1 puff DAILY DOMINIQUE Administration Vitamin D 1,000 unit 04/02/18 09:00 04/06/18 09:53 Vitamin D3 PO 1,000 unit DAILY [facility] Administration Warfarin Sodium 2.5 mg 04/06/18 16:00 Coumadin PO DAILY@1600 [facility] Zolpidem Tartrate 5 mg 04/01/18 21:00 04/05/18 22:10 Ambien PO 5 mg HS [facility] Administration Physical Exam Vital signs: Vital Signs 04/05/18 16:00 04/05/18 20:00 04/05/18 20:02 Temperature 97.7 F 98.1 F Pulse Rate 73 72 79 Respiratory Rate 18 17 Blood Pressure 109/56 L 155/70 H Pulse Oximetry 93 L 90 L 04/05/18 21:02 04/05/18 23:31 04/05/18 23:32 Temperature 97.6 F Pulse Rate 68 63 Respiratory Rate 18 18 Blood Pressure 163/74 H Pulse Oximetry 93 L 92 L 04/06/18 03:27 04/06/18 08:00 Temperature 97.9 F 97.8 F Pulse Rate 70 70 Respiratory Rate 18 22 Blood Pressure 159/74 H 178/77 H Pulse Oximetry 93 L 96 Intake & Output 04/05/18 04/06/18 04/06/18 18:59 06:59 18:59 Intake Total 2130 / 2130 240 / 240 Output Total 1100 / 1100 350 / 350 Balance 1030 / 1030 -110 / -110 Weight 136 lb 0.403 oz Intake: IV 1000 / 1000 D5W/1/2 NS Inj 1,000 ML @ 84 1000 / 1000 mls/hr IV.CONT .[id number] DOMINIQUE Rx# :[id number] Oral 1130 / 1130 240 / 240 Output: Urine 1100 / 1100 Urine Amount (Catheter) 350 / 350 Indwelling Urethral Catheter 350 / 350 Other: # Voids 3 Date of Last Bowel Movement 04/01/18 04/05/18 # Bowel Movements 1 0 - Constitutional Comments: Frail elderly white female sitting up in a chair in no acute distress with oxygen in place - Routine Neck Exam Present: supple Comments: No lymphadenopathy, JVD, bruits or thyromegaly - Routine Respiratory Exam Comments: Opening rales in the bilateral bases. No wheezes or rhonchi. Moderately severe reduced air exchange - Routine Cardiovascular Exam Present: RRR Comments: Soft systolic murmur - Routine Abdominal Exam Present: soft Comments: Nontender, nondistended with bowel sounds present - Urinary Catheter Management Indwelling Urethral Catheter Cath placed during this visit: yes Reason for continuing: Hourly intake/output Insertion date: 04/01/18 Results - Labs CBC & Chem 7: 04/05/18 03:39 04/06/18 06:00 Laboratory Results - last 24 hr 04/06/18 04/06/18 06:00 06:00 PT 23.7 H D INR 2.3 Sodium 143 Potassium 4.3 Chloride 107 Carbon Dioxide 27.3 Anion Gap 9 BUN 54 H Creatinine 1.24 H Estimated GFR 41 L Random Glucose 123 H Calcium 9.0 Assessment and Plan - Assessment (1) COPD with acute exacerbation Code(s): J44.1 - Chronic obstructive pulmonary disease with (acute) exacerbation Status: Acute Plan: Respiratory status is slowly improving. Continue with nebulizer treatments. Will transition patient to p.o. steroids today. Continue to try to wean oxygen as tolerated. Patient needs to be out of bed to improve ventilation. (2) Closed fracture of pubic ramus Code(s): S32.599A - Other specified fracture of unspecified pubis, initial encounter for closed fracture Status: Acute Plan: The patient reports that her pain seems to be doing better today. She continues to receive the hydrocodone acetaminophen. Respiratory status is limiting mobility as much as her pain. She is weightbearing as tolerated to the left lower extremity. (3) Iron deficiency anemia Code(s): D50.9 - Iron deficiency anemia, unspecified Status: Chronic Plan: H&H is stable. Continue with iron supplement. (4) Chronic kidney disease (CKD), stage III (moderate) Code(s): N18.3 - Chronic kidney disease, stage 3 (moderate) Status: Chronic Plan: BUN and creatinine are stable. Will follow. (5) Hypothyroidism Code(s): E03.9 - Hypothyroidism, unspecified Status: Chronic Plan: Therapeutic replacement of the thyroid. (6) Peripheral vascular disease Code(s): I73.9 - Peripheral vascular disease, unspecified Status: Acute Plan: Patient is asymptomatic. Will follow. (7) Primary thrombophilia Code(s): D68.59 - Other primary thrombophilia Status: Chronic Plan: INR is now therapeutic. Resume Coumadin. 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 Patient has extensive smoking history. A PET/CT scan was recommended. This will need to be arranged as an outpatient. I did discuss the findings with the patient and she is aware that further evaluation is needed. (9) Dysphasia Code(s): R47.02 - Dysphasia Status: Acute Plan: Speech therapy has evaluated the patient and finds no signs or symptoms of aspiration. The patient is going to continue with a pured diet as she is fatigued and finds it easier to swallow. (10) Decubitus ulcer of left heel, stage 1 Code(s): L89.621 - Pressure ulcer of left heel, stage 1 Status: Acute Plan: The patient has history of a similar pressure area on the left heel. She is predisposed to this due to her severe peripheral vascular disease. Wound care nurse has seen the patient and made recommendations. Will follow closely. Will have staff float heels in bed. - Plan Discharge Planning: We will plan to discharge patient on Wednesday to senior care facility. (2) Closed fracture of pubic ramus Qualifiers: Encounter type: initial encounter Laterality: left Qualified Code(s): S32.592A - Other specified fracture of left pubis, initial encounter for closed fracture (3) Iron deficiency anemia Qualifiers: Iron deficiency anemia type: unspecified iron deficiency Qualified Code(s): D50.9 - Iron deficiency anemia, unspecified (5) Hypothyroidism Qualifiers: Hypothyroidism type: unspecified Qualified Code(s): E03.9 - Hypothyroidism, unspecified
--- NOTE | 2018-04-06 13:53 | XR ---
EXAM DATE: 04/06/2018 12:00 AM EDT AGE/SEX: 82 years / Female INDICATIONS: Hypoxemia. CLINICAL DATA: This is the patient's initial encounter. Patient reports that signs and symptoms have been present for 4 - 6 days and indicates a pain score of 0/10. MEDICAL/SURGICAL HISTORY: Chronic obstructive pulmonary disease. Carcinoma, breast. Mastectomy , bilateral. COMPARISON: [facility] – [place], CHEST 1V SINGLE AP, 04/01/2018. . FINDINGS: A single AP view of the chest demonstrates bibasilar densities. Heart normal in size. The cardiomedi astinal contours are unremarkable. Osseous structures are intact. Clips in the right axilla CONCLUSION: Bibasilar densities could be atelectasis or infiltrates. Electronically signed by: Benton Hernandez MD 04/06/2018 1:51 PM EDT
[2018-04-06] MEDS: Zolpidem Tartrate 5 MG Tablet PO SCH (21:40)
[2018-04-07 07:11] LABS: INR 1.6 Ratio; Prothrombin Time 16.2 sec (9.8-11.6)
[2018-04-07 07:15] LABS: Baso % (Auto) 0.1 % (0.0-2.0); Hematocrit 33.1 % (35.0-46.0); Hemoglobin 10.6 gm/dL (11.6-15.3); Lymph # (Auto) 0.8 th/mm3 (1.0-4.8); Mean Corpuscular HGB Conc 32.1 % (32.0-36.0); Mean Corpuscular Hemoglobin 31.2 pg (27.0-34.0); Mean Corpuscular Volume 97.2 fL (80.0-100.0); Mean Platelet Volume 8.7 fL (7.0-11.0); Mono # (Auto) 1.4 th/mm3 (0.0-0.9); Mono % (Auto) 12.3 % (0.0-8.0); Neut # (Auto) 9.4 th/mm3 (1.8-7.7); Neut % (Auto) 80.6 % (16.0-70.0); Platelet Count 235 th/mm3 (150-450); Red Blood Count 3.41 mil/mm3 (4.00-5.30); White Blood Count 11.7 th/mm3 (4.0-11.0)
[2018-04-07 07:31] LABS: Calcium 9.3 mg/dL (8.5-10.1); Carbon Dioxide 32.9 meq/L (21.0-32.0); Potassium 4.8 meq/L (3.5-5.1)
[2018-04-07] MEDS: Levothyroxine 50 MCG Tablet PO SCH (08:51)
[2018-04-07] MEDS: Senna/Docusate Sodium 8.6/50 MG Tablet PO SCH ×2 (09:00→20:57)
[2018-04-07] MEDS: predniSONE 20 MG Tablet PO SCH (09:00)
[2018-04-07] MEDS: Umeclindinium 62.5 MCG/Vilanterol 25 MCG Inhaler INH SCH (09:00)
[2018-04-07] MEDS: Ferrous Sulfate 325 MG Tablet PO SCH (09:00)
--- NOTE | 2018-04-07 09:08 | P.PN ---
Subjective Interval history: Patient reports the pain is under better control. Her last pain medication was at 6 PM yesterday. She slept well overnight. Oxygen saturations remain 93-94% on 5 L/min per nasal cannula. Denies any cough or chest congestion. Denies any chest pain, nausea or vomiting. Oral intake did improve yesterday. She remains on a pured diet due to ease of chewing and swallowing. Denies any dysphasia at this time. Urine output is good. I's and O's were not accurate for yesterday. Patient has not received IV fluids and >36 hours but I/O's include notation 4000 cc of IV intake. Active Medications Generic Name Dose Route Start Last Admin Trade Name Freq PRN Reason Stop Dose Admin Acetaminophen 650 mg 04/01/18 17:36 04/05/18 22:05 Tylenol PO 650 mg Q4H PRN Administration PAIN SCALE 1 TO 3 MILD Hydrocodone Bitart/Acetaminophen 1 tab 04/03/18 09:23 04/07/18 08:59 [place] 7.5/325 PO 1 tab Q4H PRN Administration PAIN SCALE 6 TO 10 Al Hydroxide/Mg Hydroxide 30 ml 04/01/18 17:36 Milk Of Magnesia Liq PO Q12H PRN Mild Constipation Aspirin 81 mg 04/02/18 09:00 04/07/18 09:00 Aspirin Chew PO 81 mg DAILY [facility] Administration Bisacodyl 10 mg 04/01/18 17:36 Dulcolax Supp RECTAL DAILY PRN SEVERE CONSITIPATION Bumetanide 1 mg 04/02/18 09:00 04/07/18 09:00 Bumex PO 1 mg DAILY [facility] Administration Ferrous Sulfate 325 mg 04/04/18 09:00 04/07/18 09:00 Ferosul PO 325 mg DAILY [facility] Administration Hydromorphone HCl 0.5 mg 04/01/18 19:45 Dilaudid Pf Inj IV.PUSH Q4H PRN PAIN SCALE 7 TO 10 SEVERE Sodium Chloride 500 mls @ 0 mls/hr 04/02/18 13:00 Ns Inj IV.SIG BOLUS [facility] Wide Open Lactulose 30 ml 04/01/18 17:36 Lactulose Liq PO DAILY PRN SEVERE CONSITIPATION Levothyroxine Sodium 50 mcg 04/02/18 06:00 04/07/18 08:51 Synthroid PO Not Given DAILY@0600 [facility] Ondansetron HCl 4 mg 04/01/18 17:36 04/04/18 17:47 Zofran Inj IV.PUSH 4 mg Q6H PRN Administration NAUSEA OR VOMITING Pravastatin Sodium 20 mg 04/01/18 21:00 04/06/18 21:40 Pravachol PO 20 mg Q24H [facility] Administration Prednisone 20 mg 04/07/18 09:00 04/07/18 09:00 Deltasone PO 20 mg DAILY [facility] Administration Senna/Docusate Sodium 1 tab 04/04/18 21:00 04/07/18 09:00 Leila-Colace PO 1 tab BID [facility] Administration Sennosides 17.2 mg 04/01/18 17:36 Senokot PO Q12H PRN Moderate Constipation Sotalol HCl 40 mg 04/01/18 21:00 04/07/18 09:00 Betapace PO 40 mg BID [facility] Administration Umeclidinium/Vilanterol 1 puff 04/02/18 09:00 04/07/18 09:00 Anoro-Ellipta 62.5/25 Mcg Inh INH 1 puff DAILY [facility] Administration Vitamin D 1,000 unit 04/02/18 09:00 04/07/18 09:01 Vitamin D3 PO 1,000 unit DAILY [facility] Administration Warfarin Sodium 2.5 mg 04/06/18 16:00 04/06/18 17:04 Coumadin PO 2.5 mg DAILY@1600 [facility] Administration Zolpidem Tartrate 5 mg 04/01/18 21:00 04/06/18 21:40 Ambien PO 5 mg HS [facility] Administration Physical Exam Vital signs: Vital Signs 04/06/18 12:00 04/06/18 14:30 04/06/18 16:00 Temperature 97.3 F L 97.7 F Pulse Rate 71 66 Respiratory Rate 21 22 Blood Pressure 126/60 135/67 Pulse Oximetry 89 L 96 94 L 04/06/18 20:00 04/06/18 23:40 04/06/18 23:57 Temperature 98.2 F 97.9 F Pulse Rate 70 55 L Respiratory Rate 16 16 16 Blood Pressure 116/72 122/60 Pulse Oximetry 94 L 94 L 04/07/18 03:40 04/07/18 04:20 04/07/18 07:46 Temperature 98.3 F 98.4 F Pulse Rate 69 68 Respiratory Rate 17 16 21 Blood Pressure 144/65 H 160/67 H Pulse Oximetry 93 L 94 L Intake & Output 04/06/18 04/07/18 04/07/18 18:59 06:59 18:59 Output Total 750 / 750 300 / 300 Balance -750 / -750 -300 / -300 Weight 136 lb 10.986 oz Output: Urine 750 / 750 Urine Amount (Catheter) 300 / 300 Indwelling Urethral Catheter 300 / 300 Other: Date of Last Bowel Movement 04/05/18 04/05/18 - Constitutional Comments: Awake and alert in no acute distress - Routine Respiratory Exam Comments: Clear to auscultation with moderately reduced air exchange. No rhonchi, rales or wheezes - Routine Cardiovascular Exam Comments: RRR without murmurs. - Routine Abdominal Exam Present: soft Comments: Nondistended, bowel sounds present, nontender - Urinary Catheter Management Indwelling Urethral Catheter Cath placed during this visit: yes, but has since been removed by the nurse Reason for continuing: Decision to DC catheter Insertion date: 04/01/18 Removal date: 04/07/18 Removal time: 06:15 Results - Labs CBC & Chem 7: 04/07/18 04:00 04/07/18 04:00 Laboratory Results - last 24 hr 04/07/18 04/07/18 04/07/18 04:00 04:00 04:00 WBC 11.7 H RBC 3.41 L Hgb 10.6 L Hct 33.1 L MCV 97.2 MCH 31.2 MCHC 32.1 RDW 16.0 Plt Count 235 MPV 8.7 Neut % (Auto) 80.6 H Lymph % (Auto) 7.0 L [place] % (Auto) 12.3 H Eos % (Auto) 0.0 Baso % (Auto) 0.1 Neut # (Auto) 9.4 H Lymph # (Auto) 0.8 L [place] # (Auto) 1.4 H Eos # (Auto) 0.0 Baso # (Auto) 0.0 WBC Differential . Differential Comment Auto diff final PT 16.2 H INR 1.6 Sodium 145 Potassium 4.8 Chloride 106 Carbon Dioxide 32.9 H Anion Gap 6 BUN 51 H Creatinine 1.11 H Estimated GFR 47 L Random Glucose 83 Calcium 9.3 - Imaging Impressions Chest X-Ray 04/06/18 00:00 CONCLUSION: Bibasilar densities could be atelectasis or infiltrates. Assessment and Plan - Assessment (1) COPD with acute exacerbation Code(s): J44.1 - Chronic obstructive pulmonary disease with (acute) exacerbation Status: Acute Plan: Respiratory status is slowly improving. Continue with nebulizer treatments. Patient is tolerating oral steroids. Continue to get out of bed as much as possible. Will wean oxygen as tolerated. (2) Closed fracture of pubic ramus Code(s): S32.599A - Other specified fracture of unspecified pubis, initial encounter for closed fracture Status: Acute Plan: Continue to work with physical therapy. Pain is under better control. Patient receiving hydrocodone acetaminophen as needed. (3) Iron deficiency anemia Code(s): D50.9 - Iron deficiency anemia, unspecified Status: Chronic Plan: H&H is stable. Will continue with ferrous sulfate. (4) Chronic kidney disease (CKD), stage III (moderate) Code(s): N18.3 - Chronic kidney disease, stage 3 (moderate) Status: Chronic Plan: BUN and creatinine have decreased. Will follow. (5) Hypothyroidism Code(s): E03.9 - Hypothyroidism, unspecified Status: Chronic Plan: Therapeutic replacement of the thyroid. (6) Peripheral vascular disease Code(s): I73.9 - Peripheral vascular disease, unspecified Status: Acute Plan: Patient is asymptomatic. Will follow. (7) Primary thrombophilia Code(s): D68.59 - Other primary thrombophilia Status: Chronic Plan: INR is subtherapeutic today. Continue with Coumadin. INR should begin to increase since Coumadin was resumed yesterday. Will provide subcutaneous Lovenox today. 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 Patient has extensive smoking history. A PET/CT scan was recommended. This will need to be arranged as an outpatient. I did discuss the findings with the patient and she is aware that further evaluation is needed. (9) Dysphasia Code(s): R47.02 - Dysphasia Status: Acute Plan: Improved. Will advance consistency of diet when patient's respiratory status is better. (10) Decubitus ulcer of left heel, stage 1 Code(s): L89.621 - Pressure ulcer of left heel, stage 1 Status: Acute Plan: Continue to reduce pressure to left heel by floating heels in bed. - Plan Discharge Planning: Plan to discharge patient to shelter facility tomorrow if she remains stable. (2) Closed fracture of pubic ramus Qualifiers: Encounter type: initial encounter Laterality: left Qualified Code(s): S32.592A - Other specified fracture of left pubis, initial encounter for closed fracture (3) Iron deficiency anemia Qualifiers: Iron deficiency anemia type: unspecified iron deficiency Qualified Code(s): D50.9 - Iron deficiency anemia, unspecified (5) Hypothyroidism Qualifiers: Hypothyroidism type: unspecified Qualified Code(s): E03.9 - Hypothyroidism, unspecified
[2018-04-07] MEDS: Enoxaparin Inj 40 MG/0.4 ML Syringe SQ SCH (09:58)
[2018-04-07] MEDS: Zolpidem Tartrate 5 MG Tablet PO SCH (20:57)
[2018-04-08 05:08] LABS: INR 1.5 Ratio; Prothrombin Time 14.9 sec (9.8-11.6)
[2018-04-08 05:15] LABS: Calcium 9.5 mg/dL (8.5-10.1); Carbon Dioxide 34.1 meq/L (21.0-32.0); Potassium 4.1 meq/L (3.5-5.1)
[2018-04-08] MEDS: Levothyroxine 50 MCG Tablet PO SCH (06:00)
[2018-04-08] MEDS: Ferrous Sulfate 325 MG Tablet PO SCH (09:18)
[2018-04-08] MEDS: Senna/Docusate Sodium 8.6/50 MG Tablet PO SCH (09:18)
[2018-04-08] MEDS: predniSONE 20 MG Tablet PO SCH (09:19)
[2018-04-08] MEDS: Enoxaparin Inj 40 MG/0.4 ML Syringe SQ SCH (09:20)
--- NOTE | 2018-04-08 14:17 | P.PN ---
Subjective Interval history: Patient was out of bed for several hours this morning. She states her pain level is improving. She still receiving hydrocodone acetaminophen as needed for pain relief. Appetite has been improving. Urine output has been good. Bowels have been moving. She denies any chest pain or palpitations. She is comfortable with oxygen at 5 L/min per nasal cannula. Oxygen saturations are for the most part greater than 92%. No cough or sputum production. Active Medications Generic Name Dose Route Start Last Admin Trade Name Freq PRN Reason Stop Dose Admin Acetaminophen 650 mg 04/01/18 17:36 04/05/18 22:05 Tylenol PO 650 mg Q4H PRN Administration PAIN SCALE 1 TO 3 MILD Hydrocodone Bitart/Acetaminophen 1 tab 04/03/18 09:23 04/08/18 09:19 [place] 7.5/325 PO 1 tab Q4H PRN Administration PAIN SCALE 6 TO 10 Al Hydroxide/Mg Hydroxide 30 ml 04/01/18 17:36 Milk Of Magnesia Liq PO Q12H PRN Mild Constipation Aspirin 81 mg 04/02/18 09:00 04/08/18 09:19 Aspirin Chew PO 81 mg DAILY [facility] Administration Bisacodyl 10 mg 04/01/18 17:36 Dulcolax Supp RECTAL DAILY PRN SEVERE CONSITIPATION Bumetanide 1 mg 04/02/18 09:00 04/08/18 09:19 Bumex PO 1 mg DAILY [facility] Administration Enoxaparin Sodium 40 mg 04/07/18 10:00 04/08/18 09:20 Lovenox Inj SQ 40 mg DAILY [facility] Administration Ferrous Sulfate 325 mg 04/04/18 09:00 04/08/18 09:18 Ferosul PO 325 mg DAILY [facility] Administration Hydromorphone HCl 0.5 mg 04/01/18 19:45 Dilaudid Pf Inj IV.PUSH Q4H PRN PAIN SCALE 7 TO 10 SEVERE Sodium Chloride 500 mls @ 0 mls/hr 04/02/18 13:00 Ns Inj IV.SIG BOLUS [facility] Wide Open Lactulose 30 ml 04/01/18 17:36 Lactulose Liq PO DAILY PRN SEVERE CONSITIPATION Levothyroxine Sodium 50 mcg 04/02/18 06:00 04/08/18 06:00 Synthroid PO 50 mcg DAILY@0600 [facility] Administration Ondansetron HCl 4 mg 04/01/18 17:36 04/04/18 17:47 Zofran Inj IV.PUSH 4 mg Q6H PRN Administration NAUSEA OR VOMITING Pravastatin Sodium 20 mg 04/01/18 21:00 04/07/18 20:57 Pravachol PO 20 mg Q24H [facility] Administration Prednisone 20 mg 04/07/18 09:00 04/08/18 09:19 Deltasone PO 20 mg DAILY [facility] Administration Senna/Docusate Sodium 1 tab 04/04/18 21:00 04/08/18 09:18 Leila-Colace PO 1 tab BID [facility] Administration Sennosides 17.2 mg 04/01/18 17:36 Senokot PO Q12H PRN Moderate Constipation Sotalol HCl 40 mg 04/01/18 21:00 04/08/18 09:19 Betapace PO 40 mg BID [facility] Administration Umeclidinium/Vilanterol 1 puff 04/02/18 09:00 04/07/18 09:00 Anoro-Ellipta 62.5/25 Mcg Inh INH 1 puff DAILY [facility] Administration Vitamin D 1,000 unit 04/02/18 09:00 04/08/18 09:19 Vitamin D3 PO 1,000 unit DAILY [facility] Administration Warfarin Sodium 2.5 mg 04/06/18 16:00 04/07/18 15:01 Coumadin PO 2.5 mg DAILY@1600 [facility] Administration Zolpidem Tartrate 5 mg 04/01/18 21:00 04/07/18 20:57 Ambien PO 5 mg HS [facility] Administration Physical Exam Vital signs: Vital Signs 04/07/18 14:23 04/07/18 15:39 04/07/18 19:58 Temperature 98.1 F Pulse Rate 66 55 L Respiratory Rate 18 18 Blood Pressure 110/55 L Pulse Oximetry 93 L 04/07/18 20:00 04/07/18 23:04 04/08/18 00:00 Temperature 99.0 F 97.9 F Pulse Rate 68 73 Respiratory Rate 18 17 18 Blood Pressure 168/74 H 161/74 H Pulse Oximetry 95 96 04/08/18 00:04 04/08/18 04:00 04/08/18 08:00 Temperature 98.4 F 98.2 F Pulse Rate 53 L 69 76 Respiratory Rate 18 14 Blood Pressure 136/86 148/67 H Pulse Oximetry 96 94 L 04/08/18 12:00 Temperature 98.0 F Pulse Rate 68 Respiratory Rate 14 Blood Pressure 141/74 H Pulse Oximetry 92 L Intake & Output 04/07/18 04/08/18 04/08/18 18:59 06:59 18:59 Intake Total 500 / 500 Output Total 600 / 600 525 / 525 Balance -100 / -100 -525 / -525 Weight 134 lb 14.766 oz Intake: Oral 500 / 500 Output: Urine 600 / 600 525 / 525 Other: # Incontinent Voids 2 Date of Last Bowel Movement 04/05/18 04/05/18 - Constitutional Comments: Awake and alert sitting up in bed in no respiratory distress with oxygen in place - Routine Neck Exam Present: supple Comments: No JVD, lymphadenopathy or bruits. Trachea midline - Routine Respiratory Exam Comments: Clear to auscultation but moderately reduced air exchange bilaterally. - Routine Cardiovascular Exam Present: RRR - Routine Abdominal Exam Present: soft Comments: Nontender, nondistended with bowel sounds present - Urinary Catheter Management Indwelling Urethral Catheter Cath placed during this visit: yes, but has since been removed by the nurse Reason for continuing: Decision to DC catheter Insertion date: 04/01/18 Removal date: 04/07/18 Removal time: 06:15 Results - Labs CBC & Chem 7: 04/07/18 04:00 04/08/18 03:59 Laboratory Results - last 24 hr 04/08/18 04/08/18 03:59 03:59 PT 14.9 H INR 1.5 Sodium 142 Potassium 4.1 Chloride 104 Carbon Dioxide 34.1 H Anion Gap 4 L BUN 46 H Creatinine 1.04 H Estimated GFR 51 L Random Glucose 79 Calcium 9.5 Assessment and Plan - Assessment (1) COPD with acute exacerbation Code(s): J44.1 - Chronic obstructive pulmonary disease with (acute) exacerbation Status: Acute Plan: Respiratory status is slowly improving. Continue with nebulizer treatments. Continue with oral steroids which will be weaned slowly as an outpatient. Patient will continue with nebulizer treatments and [place] (2) Closed fracture of pubic ramus Code(s): S32.599A - Other specified fracture of unspecified pubis, initial encounter for closed fracture Status: Acute Plan: Pain has been improving. To continue with pain medication as needed. Patient to be evaluated by physical and [facility] therapy [facility]. Weightbearing as tolerated to the right lower extremity. (3) Iron deficiency anemia Code(s): D50.9 - Iron deficiency anemia, unspecified Status: Chronic Plan: H&H is stable. Will continue with ferrous sulfate. Will monitor H&H at [facility]iary facility (4) Chronic kidney disease (CKD), stage III (moderate) Code(s): N18.3 - Chronic kidney disease, stage 3 (moderate) Status: Chronic Plan: BUN and creatinine are stable. Follow renal function. (5) Hypothyroidism Code(s): E03.9 - Hypothyroidism, unspecified Status: Chronic Plan: Therapeutic replacement of the thyroid. (6) Peripheral vascular disease Code(s): I73.9 - Peripheral vascular disease, unspecified Status: Acute Plan: Patient is asymptomatic. Will follow. (7) Primary thrombophilia Code(s): D68.59 - Other primary thrombophilia Status: Chronic Plan: INR is subtherapeutic today. 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 Patient has extensive smoking history. A PET/CT scan was recommended. This will need to be arranged as an outpatient. I did discuss the findings with the patient and she is aware that further evaluation is needed. (9) Dysphasia Code(s): R47.02 - Dysphasia Status: Resolved Plan: Improved. Will advance patient to soft diet. (10) Decubitus ulcer of left heel, stage 1 Code(s): L89.621 - Pressure ulcer of left heel, stage 1 Status: Acute Plan: Continue to reduce pressure to left heel by floating heels in bed. - Plan Discharge Planning: Will [facility] to [facility] today. (2) Closed fracture of pubic ramus Qualifiers: Encounter type: initial encounter Laterality: left Qualified Code(s): S32.592A - Other specified fracture of left pubis, initial encounter for closed fracture (3) Iron deficiency anemia Qualifiers: Iron deficiency anemia type: unspecified iron deficiency Qualified Code(s): D50.9 - Iron deficiency anemia, unspecified (5) Hypothyroidism Qualifiers: Hypothyroidism type: unspecified Qualified Code(s): E03.9 - Hypothyroidism, unspecified
--- NOTE | 2018-04-08 14:31 | P.DS ---
Date of admission: 04/01/18 16:41 Primary care physician: Boo Morrissey MD Attending physician on discharge: Boo Morrissey Anticipated date of discharge: 04/08/18 Brief History from admission: This 82-year-old white female with a complex medical history including COPD, status post aortic valve repair, paroxysmal atrial fibrillation, primary thrombophilia, hypothyroidism, peripheral neuropathy and iron deficiency anemia was residing at home. She was working in her kitchen and lost her footing. She fell to the ground had sudden onset of pain in the left groin area. She was unable to arise from the floor. Her neighbor came to check on her and found her on the floor. She was transferred to this facility for further evaluation and treatment. The patient had no head injury, loss of consciousness , lightheadedness, dizziness, chest pain. She was complaining of shortness of breath. She does have a history of COPD and had been experiencing increasing shortness of breath recently. She has oxygen at home but has only been using it at night. The patient had been using her nebulizer treatments as needed. X-ray revealed a left inferior pubic ramus fracture. The patient was in significant pain. She was also found to be hypoxemic and placed on supplemental oxygen. The patient would be admitted for management of pain and for exacerbation of COPD with hypoxemia. Patient update on day of discharge: The patient has been out of bed for 2-3 hours today. Appetite is improving. Pain is under better control and patient utilizing hydrocodone acetaminophen as needed. Respiratory status is slowly improving with patient requiring oxygen at 5 L/min per nasal cannula. Oxygen saturations have been 93-94%. She still requires maximum assistance of 2 individuals for transfers. The patient is continuing to receive Coumadin for history of primary thrombophilia. Her INR is subtherapeutic at 1.5. She is receiving subcutaneous Lovenox until her INR is >1.9. The patient is medically cleared for discharge to the nursing home facility. The undersigned physician will be seeing the patient at the facility for in follow-up. 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 For the first couple of days, she was not out of bed at all due to the severity of her pain. Her respiratory status was tenuous at that time and she remained hypoxemic on a nasal cannula, therefore, she was placed on a Venturi mask. Oxygen concentrations were adjusted to maintain oxygen saturations >90%. The patient was provided with IV and oral narcotic analgesics for pain relief for the left groin pain from the fracture. She ultimately was evaluated by physical therapy and they were able to get her out of bed for the last several days of admission. She spent several hours out of bed on the day of admission. The patient still had significant pain with movement. She stated that the pain had improved significantly on the day of discharge and she was using the hydrocodone acetaminophen as needed. Initially when the patient had the increasing shortness of breath the chest x- ray was read possible pulmonary edema. Cardiology was consulted and the patient was seen by Dr. Hatfield who was covering for her awake overnight counselor. He felt based on the available data and clinical picture, there was no evidence of decompensation of congestive heart failure. Instead he felt the patient shortness of breath was due to chronic obstructive pulmonary disease with exacerbation. The patient was continued on nebulizer treatments and IV steroids were initiated. She did have improvement of her oxygen saturations and respiratory status during the hospitalization. Her oxygen was weaned to nasal cannula and she remains on 4-5 L/min per nasal cannula with oxygen saturations between 93-94% at rest. On the day of discharge she was receiving oral steroids which would be tapered at the nursing home facility and she would continue with nebulizer treatments. At the time of admission, the patient had a CTA of the chest done to rule out pulmonary embolism. There is no evidence of pulmonary embolism but there was indication of a 2.6 cm spiculated mass in the left upper lobe. It was recommend the patient undergo PET/CT scan but this would need to be done on an outpatient basis. The patient was informed of the results and the plan to follow-up this finding as an outpatient once her medical condition stabilized. The patient continues to receive Coumadin for prophylaxis against embolism #4 history of primary thrombophilia. Her INR was subtherapeutic on the last 2 days of the hospitalization so she was placed on Lovenox subcutaneously. She would continue with Coumadin and Lovenox until her INR was >1.9 at which point the Lovenox will be discontinued. The patient has a history of iron deficiency anemia. Her H&H was stable during the hospitalization and she continued with an iron supplement. Her H&H and iron levels will be followed closely at the nursing home facility. She has a history of hypothyroidism and continues to receive levothyroxine. TSH was therapeutic. The patient's appetite was poor during the hospitalization but it did improve by the last 2 hospital days. The patient is also receiving Ensure 1 bottle 3 times a day which she is drinking. Her caloric intake will be followed closely at the nursing home [facility]. On the day of discharge the patient was eating better. She reported her pain was under adequate control. She had been out of bed for 2-3 hours. Her vital signs and laboratory studies were stable. It was felt she had obtained maximum benefit from the hospitalization. She would be transferred to the nursing home [facility] by nonemergent transport. The undersigned physician will be seeing the patient at [facility] within 3-4 days after discharge. She has orders to have a PT with INR, BMP and CBC drawn every Wednesday. Her medications will be adjusted based on the results. - Time Spent with Patient Total time spent providing and/or coordinating discharge services: Less than 30 minutes - Quality: VTE VTE Discharge Instructions: Encouragement of compliance with medication regimen Deep Vein Thrombosis/Pulmonary Embolism Present on Admission: Yes Exam Vital signs: Vital Signs 04/07/18 14:23 04/07/18 15:39 04/07/18 19:58 Temperature 98.1 F Pulse Rate 66 55 L Respiratory Rate 18 18 Blood Pressure 110/55 L Pulse Oximetry 93 L 04/07/18 20:00 04/07/18 23:04 04/08/18 00:00 Temperature 99.0 F 97.9 F Pulse Rate 68 73 Respiratory Rate 18 17 18 Blood Pressure 168/74 H 161/74 H Pulse Oximetry 95 96 04/08/18 00:04 04/08/18 04:00 04/08/18 08:00 Temperature 98.4 F 98.2 F Pulse Rate 53 L 69 76 Respiratory Rate 18 14 Blood Pressure 136/86 148/67 H Pulse Oximetry 96 94 L 04/08/18 12:00 Temperature 98.0 F Pulse Rate 68 Respiratory Rate 14 Blood Pressure 141/74 H Pulse Oximetry 92 L Intake & Output 04/07/18 04/08/18 04/08/18 18:59 06:59 18:59 Intake Total 500 / 500 Output Total 600 / 600 525 / 525 Balance -100 / -100 -525 / -525 Weight 134 lb 14.766 oz Intake: Oral 500 / 500 Output: Urine 600 / 600 525 / 525 Other: # Incontinent Voids 2 Date of Last Bowel Movement 04/05/18 04/05/18 Results Procedures completed during hospitalization: none Labs on day of discharge: Labs from last 24 hours 04/08/18 04/08/18 03:59 03:59 PT 14.9 H INR 1.5 Sodium 142 Potassium 4.1 Chloride 104 Carbon Dioxide 34.1 H Anion Gap 4 L BUN 46 H Creatinine 1.04 H Estimated GFR 51 L Random Glucose 79 Calcium 9.5 - Impressions ITS Impressions Elbow X-Ray 04/01/18 13:04 CONCLUSION: No evidence of recent bony injury. Femur X-Ray 04/01/18 13:04 CONCLUSION: 1. No acute fracture or dislocation of the left femur. 2. Moderate osteoarthritis involving left knee joint. Pelvis X-Ray 04/01/18 13:04 CONCLUSION: 1. Fracture involving the left inferior pubic ramus of indeterminate age. Clinical correlation is recommended. 2. Degenerative changes throughout the lower lumbar spine. Chest CTA 04/01/18 16:23 CONCLUSION: 1. No pulmonary embolus. 2. Mild pulmonary edema with small bilateral pleural effusions. 3. Left upper lobe 2.6 cm masslike opacity as described. Outpatient PET/CT is recommended if felt clinically indicated. 4. Coronary artery calcification. Chest X-Ray 04/06/18 00:00 CONCLUSION: Bibasilar densities could be atelectasis or infiltrates. Discharge Plan - Discharge Disposition Patient Disposition: 03 Discharge to SNF - Discharge Condition Condition: Stable - Discharge Order Discharge Orders: Discharge Order (Routine); Ordered 04/08/18 Ordered By: Boo Morrissey - Physicians Team Primary Care Provider: Boo Morrissey Attending Provider: Boo Morrissey Other Providers: Jaiden Hatfield DO ; [facility]
[2018-04-08] MEDS: Umeclindinium 62.5 MCG/Vilanterol 25 MCG Inhaler INH SCH (15:23)
[2018-04-08 16:44] VITALS: BP 163/77; PULSE 97; RESP 16; TEMP 97.9; O2SAT 97
== END 2018-04-08 17:50 ==
LOC: NEPE 12:53 → NEDA 16:41 → N06 19:19
PROVIDERS: ADMIT Family Medicine; ATTEND Family Medicine

== ENCOUNTER 2018-04-19 23:27 | Inpatient (IN) ==
--- NOTE | 2018-04-19 23:57 | ED ---
HPI General Chief complaint: Shortness of Breath/Dyspnea Stated complaint: poss resp Time Seen by Provider: 04/19/18 23:40 History of Present Illness HPI narrative: 82-year-old female who was recently diagnosed with a pubic rami fracture, admitted to [place], discharged to [facility] and rehab. History of aortic valve replacement, COPD, atrial fibrillation, thrombophilia, on home oxygen, chronic kidney disease, presents via EMS for evaluation. According to the report the patient was found naked in her bed and dyspneic. She received bronchodilator treatment with improvement of her dyspnea but she was sent here for further evaluation. On examination the patient reports that "it is my time to go" and "everybody abandoned me." She is alert to person place and time but overall just does not feel well. According to her friend and neighbor who is now at bedside the patient has been somewhat confused over the past 4-5 days, having difficulty with any sort of activities of daily living. She was previously ambulatory at home however she has been primarily bedbound over the past several days. She was recently diagnosed with UTI and is being given Cipro at the rehab facility. The patient is currently denying any acute dyspnea. She typically uses 4 L nasal cannula currently. She denies any headache, chest pain, current shortness of breath, cough, congestion. She reports occasional chills. Denies abdominal pain, nausea, vomiting. Symptoms are moderate. No other complaints. Related Data Home Medications Medication Instructions Recorded Confirmed docusate sodium 100 mg PO DAILY 04/01/18 04/20/18 Previous Rx's Medication Instructions Recorded Ensure 1 bottle PO TID #0 04/08/18 acetaminophen 650 mg PO Q4H PRN #30 tab 04/08/18 aspirin 81 mg PO DAILY #30 tab 04/08/18 bumetanide 1 mg PO DAILY #30 tab 04/08/18 cholecalciferol (vitamin D3) 1,000 unit PO DAILY #30 cap 04/08/18 [Vitamin D3] enoxaparin [Lovenox] 40 mg SUBCUT DAILY ml 04/08/18 ferrous sulfate [FeroSul] 325 mg PO DAILY #30 tab 04/08/18 hydrocodone-acetaminophen 1 tab PO Q4H PRN #90 tab 04/08/18 ipratropium-albuterol 3 ml INHALATION TID #270 ml 04/08/18 levothyroxine 50 mcg PO DAILY #30 tab 04/08/18 magnesium hydroxide [Milk of 30 ml PO Q12H PRN ml 04/08/18 Magnesia] pravastatin 20 mg PO DAILY #30 tab 04/08/18 prednisone 20 mg PO DAILY #30 tab 04/08/18 sotalol 40 mg PO BID #60 tab 04/08/18 umeclidinium-vilanterol [Anoro 1 puff INH DAILY #1 ea 04/08/18 Ellipta] vit C,A-Xa-zzgxx-lutein-zeaxan 1 tab PO BID #30 cap 04/08/18 [PreserVision AREDS-2] warfarin [Coumadin] 2.5 mg PO DAILY@1600 #30 tab 04/08/18 zolpidem [Ambien] 1 tab PO HS PRN #30 tab 04/08/18 Allergies Allergy/AdvReac Type Severity Reaction Status Date / Time doxycycline Allergy Severe Hives Verified 04/01/18 15:21 gabapentin Allergy Severe Hives Verified 04/01/18 15:21 pregabalin Allergy Severe Hives Verified 04/01/18 15:21 orange AdvReac Intermediate Diarrhea Verified 04/01/18 15:21 [facility] Medical History Medical History CHF (congestive heart failure) (Acute) Abdominal aneurysm (Acute) Afib (Acute) Aortic stenosis (Acute) Breast cancer (Acute) COPD (chronic obstructive pulmonary disease) (Acute) Carotid artery stenosis (Acute) Diverticulosis (Acute) Femur fracture, left (Acute) Fibromyalgia (Acute) H/O: hysterectomy (Acute) History of DVT of lower extremity (Acute) Neuropathy (Acute) Osteoarthritis (Acute) PVD (peripheral vascular disease) (Acute) Spinal stenosis (Acute) Urothelial cancer (Acute) Surgical History Surgical History History of appendectomy (Acute) History of back surgery (Acute) Hx of cardiac cath (Acute) S/P AVR (aortic valve replacement) (Acute) Social History Social History Substance History: Unable to Obtain Second Hand Smoke Exposure: No Smoking Status: Cognitive impairment How Often Do You Have a Drink Containing Alcohol: Unable to Obtain Recent Travel in [place] within the Last 8 Weeks: No Recent Out of Country Travel within the Last 8 Weeks: No Exam Narrative Exam Narrative: GENERAL: This is an elderly female who is in no acute distress. She is alert and oriented to person, place, time. SKIN: Warm and dry. HEAD: Atraumatic. Normocephalic. EYES: Pupils equal and round. No scleral icterus. No injection or drainage. ENT: No nasal bleeding or discharge. Mucous membranes pink and moist. NECK: Trachea midline. No JVD. CARDIOVASCULAR: Regular rate and rhythm. No murmur appreciated. RESPIRATORY: No accessory muscle use. Clear to auscultation. Breath sounds equal bilaterally. GASTROINTESTINAL: Abdomen soft, non-tender, nondistended. Hepatic and splenic margins not palpable. MUSCULOSKELETAL: No obvious deformities. No clubbing. No cyanosis. No edema. NEUROLOGICAL: Awake and alert. No obvious cranial nerve deficits. Motor grossly within normal limits. Normal speech. Mood is somewhat depressed. Course Initial Documented Vital Signs Pulse Rate 74 04/19/18 23:45 Respiratory Rate 16 04/19/18 23:45 Blood Pressure 110/58 L 04/19/18 23:45 Pulse Oximetry 98 04/19/18 23:45 Last Documented Vital Signs Pulse Rate 76 04/20/18 00:21 Respiratory Rate 16 04/19/18 23:45 Blood Pressure 101/53 L 04/20/18 00:21 Pulse Oximetry 98 04/20/18 00:21 Medical Decision Making PAOLO Attestation PAOLO supervised visit: Yes Attestation: I, Dr. Horan, have reviewed the advance practice practitioner' s documentation and am in agreement, met with the patient face to face, made the diagnosis, and the medical decision making was done by me. *My assessment and Findings: The patient was recently hospitalized by her primary physician, Dr. Morrissey, after a fall resulting in an inferior pubic rami fracture. The patient was also noted to have shortness of breath at that time and was placed on oxygen. The patient was subsequently discharged to a jail/rehabilitation facility. Regan Barajas PA-C, initially evaluated the patient states that the patient's baseline is off from her prior visit, he saw her several weeks ago. Initial assessment was delirium, possibly secondary to UTI and dehydration. The patient's labs do reveal a BUN of 73 and a creatinine greater than 2, these are elevated from her prior admission, most likely prerenal azotemia, possibly from dehydration. The patient's troponin was elevated 0.20, previous troponin on admission was 0.06, this may be from acute kidney injury. BNP is mildly elevated in the 300s, but improved from the 500s on previous admission. Patient was administered IV fluids. Patient's UA reveals innumerable WBCs, therefore, patient was administer Rocephin 1 g intravenously. I discussed the patient with her primary physician, Dr. Morrissey, who agrees with admission. MDM Narrative Medical Screen Exam Complete: Yes Emergency Medical Condition: Yes Differential Diagnosis Differential Diagnosis: Delirium, UTI, sepsis, COPD exacerbation, bronchospasm, CHF, pneumonia, generalized weakness Lab Data Lab results reviewed: Yes I reviewed the patient's lab results. Result diagrams: 04/20/18 00:10 04/20/18 00:10 Lab Results 04/20/18 04/20/18 04/20/18 Range/Units 00:10 00:10 00:10 WBC 11.5 H (4.0-11.0) th/mm3 RBC 3.80 L (4.00-5.30) mil/mm3 Hgb 11.7 (11.6-15.3) gm/dL Hct 35.3 (35.0-46.0) % MCV 92.9 (80.0-100.0) fL MCH 30.7 (27.0-34.0) pg MCHC 33.0 (32.0-36.0) % RDW 16.7 (11.6-17.2) % Plt Count 422 D (150-450) th/mm3 MPV 8.7 (7.0-11.0) fL Neut % (Auto) 79.0 H (16.0-70.0) % Lymph % (Auto) 13.6 (9.0-44.0) % Lee % (Auto) 6.2 (0.0-8.0) % Eos % (Auto) 0.9 (0.0-4.0) % Baso % (Auto) 0.3 (0.0-2.0) % Neut # (Auto) 9.0 H (1.8-7.7) th/mm3 Lymph # (Auto) 1.6 (1.0-4.8) th/mm3 Lee # (Auto) 0.7 (0.0-0.9) th/mm3 Eos # (Auto) 0.1 (0.0-0.4) th/mm3 Baso # (Auto) 0.0 (0.0-0.2) th/mm3 WBC Differential . Differential Comment Auto diff final PT (9.8-11.6) sec INR Ratio APTT (24.3-30.1) sec Sodium 149 H (136-145) meq/L Potassium 4.3 (3.5-5.1) meq/L Chloride 107 (98-107) meq/L Carbon Dioxide 35.3 H (21.0-32.0) meq/L Anion Gap 7 (5-15) meq/L BUN 73 H (7-18) mg/dL Creatinine 2.20 H (0.50-1.00) mg/dL Estimated GFR 21 L (>89) mL/min Random Glucose 93 (74-106) mg/dL Lactic Acid (0.4-2.0) mmol/L Calcium 9.2 (8.5-10.1) mg/dL Magnesium 2.9 H (1.5-2.5) mg/dL Total Bilirubin 0.5 (0.2-1.0) mg/dL AST 29 (15-37) U/L ALT 30 (10-53) U/L Alkaline Phosphatase 86 (45-117) U/L Total Creatine Kinase 35 (26-192) U/L Troponin I 0.20 H (0.02-0.05) ng/mL B-Natriuretic Peptide 374 H (0-100) pg/mL Total Protein 8.1 (6.4-8.2) g/dL Albumin 2.9 L (3.4-5.0) g/dL Urine Color (Yellw/Straw) Urine Clarity (Clear) Urine pH (5.0-8.5) Ur Specific [place] (1.002-1.035) Urine Protein (Neg-Trace) mg/dL Urine Glucose (UA) (Negative) mg/dL Urine Ketones (Negative) mg/dL Urine Occult Blood (Negative) Urine Nitrate (Negative) Urine Bilirubin (Negative) Urine Urobilinogen (Less than 2) mg/dL Ur Leukocyte Esterase (Negative) Urine RBC (0-3) /hpf Urine WBC (0-5) /hpf Urine WBC Clumps (None) Urine Bacteria (None) /hpf Hyaline Casts (0-3) /lpf Micro UA Comment Ur Microscopic Review Urine Culture Comments 04/20/18 04/20/18 04/20/18 Range/Units 00:10 00:10 00:24 WBC (4.0-11.0) th/mm3 RBC (4.00-5.30) mil/mm3 Hgb (11.6-15.3) gm/dL Hct (35.0-46.0) % MCV (80.0-100.0) fL MCH (27.0-34.0) pg MCHC (32.0-36.0) % RDW (11.6-17.2) % Plt Count (150-450) th/mm3 MPV (7.0-11.0) fL Neut % (Auto) (16.0-70.0) % Lymph % (Auto) (9.0-44.0) % Lee % (Auto) (0.0-8.0) % Eos % (Auto) (0.0-4.0) % Baso % (Auto) (0.0-2.0) % Neut # (Auto) (1.8-7.7) th/mm3 Lymph # (Auto) (1.0-4.8) th/mm3 Lee # (Auto) (0.0-0.9) th/mm3 Eos # (Auto) (0.0-0.4) th/mm3 Baso # (Auto) (0.0-0.2) th/mm3 WBC Differential Differential Comment PT 45.6 H D (9.8-11.6) sec INR 4.5 Ratio APTT 45.6 H (24.3-30.1) sec Sodium (136-145) meq/L Potassium (3.5-5.1) meq/L Chloride (98-107) meq/L Carbon Dioxide (21.0-32.0) meq/L Anion Gap (5-15) meq/L BUN (7-18) mg/dL Creatinine (0.50-1.00) mg/dL Estimated GFR (>89) mL/min Random Glucose (74-106) mg/dL Lactic Acid 1.6 (0.4-2.0) mmol/L Calcium (8.5-10.1) mg/dL Magnesium (1.5-2.5) mg/dL Total Bilirubin (0.2-1.0) mg/dL AST (15-37) U/L ALT (10-53) U/L Alkaline Phosphatase (45-117) U/L Total Creatine Kinase (26-192) U/L Troponin I (0.02-0.05) ng/mL B-Natriuretic Peptide (0-100) pg/mL Total Protein (6.4-8.2) g/dL Albumin (3.4-5.0) g/dL Urine Color Yellow (Yellw/Straw) Urine Clarity Cloudy H (Clear) Urine pH 5.0 (5.0-8.5) Ur Specific [place] 1.014 (1.002-1.035) Urine Protein 30 H (Neg-Trace) mg/dL Urine Glucose (UA) Negative (Negative) mg/dL Urine Ketones Negative (Negative) mg/dL Urine Occult Blood Moderate H (Negative) Urine Nitrate Negative (Negative) Urine Bilirubin Negative (Negative) Urine Urobilinogen Less than 2 (Less than 2) mg/dL Ur Leukocyte Esterase Large H (Negative) Urine RBC 24 H (0-3) /hpf Urine WBC (0-5) /hpf Urine WBC Clumps Many H (None) Urine Bacteria Rare H (None) /hpf Hyaline Casts 9 (0-3) /lpf Micro UA Comment Cath-culture ind Ur Microscopic Review Not Reportable Urine Culture Comments Cath-cult indicated Imaging Data Attestation: I personally reviewed and interpreted this imaging study as follows : My impression: No acute cardia pulmonary disease Radiologist's impression: Chest X-Ray 04/19/18 23:54 CONCLUSION: No acute cardiopulmonary process. ECG Data EKG Prior to Arrival: No Attestation: I personally reviewed and interpreted this ECG as follows: Interpretation: EKG reveals normal sinus rhythm with a rate of 71 inverted T wave noted in lead I and aVL. RSR prime in V1. Incomplete right bundle branch block. Discharge Plan Physicians Team ED Provider: Rios Horan ED Midlevel Provider: Regan Barajas Primary Care Provider: Boo Morrissey Rxs /Orders / Referrals /Forms Prescriptions: No Action docusate sodium 100 mg Capsule 100 mg PO DAILY RF: 0 acetaminophen 325 mg Tablet 650 mg PO Q4H PRN (Reason: Pain Scale 1 To 3 Mild) Qty: 30 RF: 0 prednisone 20 mg Tablet 20 mg PO DAILY Qty: 30 RF: 0 warfarin [Coumadin] 2.5 mg Tablet 2.5 mg PO DAILY@1600 Qty: 30 RF: 0 magnesium hydroxide [Milk of Magnesia] 400 mg/5 mL Suspension 30 ml PO Q12H PRN (Reason: Mild Constipation) RF: 0 hydrocodone-acetaminophen 7.5-325 mg Tablet 1 tab PO Q4H PRN (Reason: Pain) Qty: 90 RF: 0 ferrous sulfate [FeroSul] 325 mg (65 mg iron) Tablet 325 mg PO DAILY Qty: 30 RF: 0 aspirin 81 mg Tablet,Chewable 81 mg PO DAILY Qty: 30 RF: 0 bumetanide 1 mg Tablet 1 mg PO DAILY Qty: 30 RF: 0 enoxaparin [Lovenox] 40 mg/0.4 mL Syringe 40 mg subcut DAILY RF: 0 umeclidinium-vilanterol [Anoro Ellipta] 62.5-25 mcg/actuation Blister With Device 1 puff INH DAILY Qty: 1 RF: 0 sotalol 80 mg Tablet 40 mg PO BID Qty: 60 RF: 0 levothyroxine 50 mcg Tablet 50 mcg PO DAILY Qty: 30 RF: 0 pravastatin 20 mg Tablet 20 mg PO DAILY Qty: 30 RF: 0 cholecalciferol (vitamin D3) [Vitamin D3] 1,000 unit Capsule 1,000 unit PO DAILY Qty: 30 RF: 0 vit C,R-Dt-ldpyb-lutein-zeaxan [PreserVision AREDS-2] [id number] mg-unit-mg- mg Capsule 1 tab PO BID Qty: 30 RF: 0 Ensure 1 bottle PO TID Qty: 0 RF: 0 ipratropium-albuterol 0.5 mg-3 mg(2.5 mg base)/3 mL Solution For Nebulization 3 ml INHALATION TID Qty: 270 RF: 0 zolpidem [Ambien] 5 mg Tablet 1 tab PO HS PRN (Reason: Insomnia) Qty: 30 RF: 0 Discharge Interventions Interventions: Vital Signs Last Done: 04/20/18 00:21 Status ED Status: Pending Admission
--- NOTE | 2018-04-20 00:32 | XR ---
EXAM DATE: 04/20/2018 11:54 PM EDT AGE/SEX: 82 years / Female INDICATIONS: Shortness of breath. CLINICAL DATA: This is the patient's initial encounter. Patient reports that signs and symptoms have been present for 1 day and indicates a pain score of 5/10. MEDICAL/SURGICAL HISTORY: Chronic obstructive pulmonary disease. Carcinoma, breast. Chronic o bstructive pulmonary disease. Carcinoma, breast. Mastectomy, bilateral. COMPARISON: [facility] – [place], CHEST 1V SINGLE AP, 04/06/2018. . FINDINGS: The heart size is normal. The patient appears to have a transaortic valve replacement. Lungs are joy sly clear. No effusion is seen. Vascular calcifications are seen over the subclavian and axillary art hetal regions bilaterally. Clips are seen in the right axillary region. CONCLUSION: No acute cardiopulmonary process. Electronically signed by: Jose Coyle MD 04/20/2018 12:31 AM EDT
[2018-04-20 00:37] LABS: Activated Partial Thrombo Time 45.6 sec (24.3-30.1); INR 4.5 Ratio; Prothrombin Time 45.6 sec (9.8-11.6)
[2018-04-20 00:40] LABS: Alanine Aminotransferase 30 U/L (10-53); Albumin 2.9 g/dL (3.4-5.0); Anion Gap 7 meq/L (5-15); Aspartate Aminotransferase 29 U/L (15-37); Blood Urea Nitrogen 73 mg/dL (7-18); Calcium 9.2 mg/dL (8.5-10.1); Carbon Dioxide 35.3 meq/L (21.0-32.0); Chloride 107 meq/L (98-107); Glomerular Filtration Rate 21 mL/min (>89); Glucose,Random 93 mg/dL (74-106); Magnesium 2.9 mg/dL (1.5-2.5); Potassium 4.3 meq/L (3.5-5.1); Sodium 149 meq/L (136-145)
[2018-04-20 00:42] LABS: Baso % (Auto) 0.3 % (0.0-2.0); Eos # (Auto) 0.1 th/mm3 (0.0-0.4); Eos % (Auto) 0.9 % (0.0-4.0); Hematocrit 35.3 % (35.0-46.0); Hemoglobin 11.7 gm/dL (11.6-15.3); Lymph # (Auto) 1.6 th/mm3 (1.0-4.8); Lymph % (Auto) 13.6 % (9.0-44.0); Mean Corpuscular Hemoglobin 30.7 pg (27.0-34.0); Mean Corpuscular Volume 92.9 fL (80.0-100.0); Mean Platelet Volume 8.7 fL (7.0-11.0); Mono # (Auto) 0.7 th/mm3 (0.0-0.9); Mono % (Auto) 6.2 % (0.0-8.0); Platelet Count 422 th/mm3 (150-450); Red Cell Distribution Width 16.7 % (11.6-17.2); White Blood Count 11.5 th/mm3 (4.0-11.0)
[2018-04-20 00:45] LABS: Alkaline Phosphatase 86 U/L (45-117); Total Protein 8.1 g/dL (6.4-8.2)
[2018-04-20 00:50] LABS: Creatine Kinase 35 U/L (26-192)
[2018-04-20] MEDS ORDERED: Sod Chloride 0.9% Inj 1,000 ML IV.SIG SCH (01:00)
[2018-04-20 01:15] LABS: Bacteria,Urine Rare /hpf; Bilirubin,Urine Negative (Negative); Clarity,Urine Cloudy (Clear); Color,Urine Yellow (Yellw/Straw); Glucose,Urine (UA) Negative (Negative); Hyaline Casts,Urine 9 /lpf (0-3); Leukocyte Esterase,Urine Large (Negative); Nitrite,Urine Negative (Negative); Specific Gravity,Urine 1.014 (1.002-1.035)
[2018-04-20] MEDS ORDERED: Acetaminophen 325 MG Tablet PO PRN (01:43)
[2018-04-20] MEDS ORDERED: Zolpidem Tartrate 5 MG Tablet PO PRN (01:43)
--- NOTE | 2018-04-20 01:55 | CT ---
EXAM DATE: 04/20/2018 12:59 AM EDT AGE/SEX: 82 years / Female INDICATIONS: Altered mental status. CLINICAL DATA: This is the patient's initial encounter. Patient reports that signs and symptoms have been present for 1 day and indicates a pain score of 0/10. MEDICAL/SURGICAL HISTORY: Aneurysm, abdominal. Cardiovascular disease. Carcinoma, breast. DVT. C OPD. Hysterectomy. Aortic valve replacement. RADIATION DOSE: 56.35 CTDI (mGy) ; Patient motion COMPARISON: No prior exams available for comparison. TECHNIQUE: CT of the head without contrast. Using automated exposure control and adjustment of the mA and/or kV according to patient size, radiation dose was kept as low as reasonably achievable to ob tain optimal diagnostic quality images. DICOM format image data is available electronically for revi ew and comparison. FINDINGS: Cerebrum: The ventricles and cortical sulci are widened. There is decreased density seen throughout the periventricular white matter. No evidence of midline shift, mass lesion, hemorrhage or acute infa rction. No extraaxial fluid collections are seen. Posterior Fossa: The cerebellum and brainstem are intact. The 4th ventricle is midline. The cerebe llopontine angle is unremarkable. Extracranial: The visualized portion of the orbits is intact. There is focal mucosal disease at the posterior right sphenoid sinus. Skull: The calvaria is intact. No evidence of skull fracture. CONCLUSION: 1. No acute intracranial abnormality. 2. Atrophy. 3. Periventricular demyelination. This is nonspecific. It could be from small vessel ischemic change . 4. Right sphenoid sinus disease. . Electronically signed by: Jose Coyle MD 04/20/2018 1:54 AM EDT
[2018-04-20] MEDS: Sod Chloride 0.9% Inj 1,000 ML IV.CONT SCH ×2 (02:29→14:07)
[2018-04-20] MEDS: Levothyroxine 50 MCG Tablet PO SCH (09:24)
[2018-04-20] MEDS: predniSONE 20 MG Tablet PO SCH (09:53)
--- NOTE | 2018-04-20 09:53 | ECG ---
Date Performed: 04/20/2018 Time Performed: 00:30:04 PTAGE: 82 years EKG: Sinus rhythm ARM LEADS REVERSED ATYPICAL ECG Would repeat EKG PREVIOUS TRACING : 04/01/2018 14.10 DOCTOR: Bashir Ho Interpretating Date/Time 04/20/2018 09:52:07
[2018-04-20] MEDS: Ferrous Sulfate 325 MG Tablet PO SCH (09:54)
[2018-04-20] MEDS: Docusate Sodium 100 MG Capsule PO SCH (09:54)
[2018-04-20 12:39] LABS: Potassium 4.2 meq/L (3.5-5.1)
[2018-04-20 12:41] LABS: Calcium 8.7 mg/dL (8.5-10.1)
[2018-04-20 12:42] LABS: Carbon Dioxide 35.3 meq/L (21.0-32.0)
[2018-04-20] MEDS: Umeclindinium 62.5 MCG/Vilanterol 25 MCG Inhaler INH SCH (14:07)
[2018-04-20] MEDS: Dextrose 5%/NaCl 0.45% Inj 1,000 ML IV.CONT SCH (20:13)
--- NOTE | 2018-04-20 20:31 | MH ---
cc: Boo Morrissey MD DATE OF ADMISSION: 04/20/2018 ADMITTING DIAGNOSES: Urinary tract infection, delirium, dehydration. HISTORY OF PRESENT ILLNESS: This is an 82-year-old white female well known to the undersigned physician, has underwent a TAVR procedure earlier this year. She had a successful outcome with repair of the aortic valve. The patient, however, had persistent shortness of breath and despite aggressive treatment ended up being hospitalized for acute on chronic diastolic heart failure. The patient was treated with medical management and was discharged to a shelter facility where she has been undergoing progressive rehabilitation. The patient became increasingly confused over 48 hours prior to admission. On the evening prior to admission, the undersigned physician was contacted and the nursing staff reported that the patient had increasing confusion and increasing shortness of breath with oxygen saturations less than 88% despite supplemental oxygen. The patient's blood pressure was low with a systolic reading in the 70s. The patient was transported to this facility for further evaluation and treatment. The patient has been confused, so history is difficult. Her mental status has cleared through the day, but she still is confused and has very little recollection of the last 24-48 hours. The patient has been on supplemental oxygen initially at 4 liters per minute per nasal cannula, but now is receiving 2 liters per minute per nasal cannula. PAST MEDICAL HISTORY: The patient is status post a left inferior pubic ramus fracture, which occurred earlier this month after a fall at home. She was hospitalized and is undergoing progressive rehabilitation. She has a history of chronic diastolic heart failure. She has a history of aortic stenosis and is status post TAVR procedure in December of this year. She has chronic insomnia for which she receives Zolpidem. The patient has COPD, history of breast cancer, history of multiple skin cancers including basal cell and squamous cell carcinomas. She has cervical and lumbar disk disease with daily pain into the lower extremities, especially when lying down. She has a history of osteopenia, primary generalized osteoarthritis, history of DVTs with pulmonary emboli. She has an IVC filter in place. She has peripheral vascular disease, hyperlipidemia. She has a 6 mm calcified lymph node in the left chest, which was found in 2011 and has been stable with serial chest x-rays and CT scans. 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 She is on chronic anticoagulation therapy with Coumadin. She has a history of bladder cancer in 2014, for which she underwent TURBT and subsequent BCG treatments, but she has refused to follow up cystoscopies. She had a left hip fracture in 2013. She has a history of coronary artery disease with 30% to 50% diffuse coronary stenosis based on cardiac catheterization done earlier this year. She has pulmonary hypertension, hypothyroidism, hyperlipidemia, macular degeneration, history of paroxysmal atrial fibrillation. PAST SURGICAL HISTORY: Includes status post hysterectomy in , status post bilateral salpingo-oophorectomy in 1998, status post left breast lumpectomy for breast cancer in 1992. The patient had subsequent radiation therapy. She is status post right breast lumpectomy for breast cancer with subsequent radiation therapy in 1998. She had a cervical laminectomy in the past. She is status post lumbar laminectomy and fusion. She has a history of an IVC filter placed in 2000. 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 She is status post appendectomy. She is status post left total hip replacement due to a fracture in 2016. ALLERGIES: INCLUDE DOXYCYCLINE, WHICH CAUSED NAUSEA AND VOMITING, GABAPENTIN, WHICH CAUSE FLUID RETENTION AND HEADACHES, LYRICA WHICH CAUSED HEADACHES AND FLUID RETENTION. CURRENT MEDICATIONS: 1. Acetaminophen 325 mg 2 tablets every 4 hours as needed for mild pain. 2. Bumex 1 mg daily. 3. Vitamin D3 1000 international units daily. 4. Lovenox 40 mg subcutaneously daily. 5. Hydrocodone/acetaminophen 7.5/325 mg 1 tablet every 4 hours as needed for pain. 6. Milk of magnesia 30 mL every 12 hours as needed for constipation. 7. Preservision AREDS2 1 tablet twice daily. 8. Zolpidem 5 mg at bedtime as needed for insomnia. 9. Aspirin 81 mg daily. 10. Colace 100 mg daily. 11. Ferrous sulfate 325 mg daily. 12. DuoNebs 1 unit dose 3 times a day. 13. Levothyroxine 50 mcg daily. 14. Pravastatin 20 mg daily. 15. Prednisone 20 mg daily. 16. Sotalol 40 mg twice daily. 17. Anoro Ellipta 62.5/25 mcg per actuation 1 inhalation daily. 18. Coumadin 2.5 mg daily. FAMILY HISTORY: Noncontributory. SOCIAL HISTORY: She is . She normally lives alone. She has a stepdaughter who lives locally. She does not smoke, but she did smoke for over 40 years. She quit several years ago. She does not consume alcohol. She is retired. REVIEW OF SYSTEMS: Unobtainable except as outlined above. Due to the patient's confusion. PHYSICAL EXAMINATION: VITAL SIGNS: Upon arrival to the emergency department, the patient's blood pressure was 110/58 with a heart rate of 74, respirations 16, the pulse oximetry is 98% on 4 liters per minute per nasal cannula. GENERAL: This is a frail, elderly, white female sitting up in bed in no acute distress with oxygen in place. HEENT: Pupils are equal, round, reactive to light. Extraocular movements are intact. Sclerae are anicteric. Conjunctivae pink. Mouth and throat reveal dry mucous membranes. No erythema, exudates. Dentition reveals multiple missing teeth. NECK: Supple without lymphadenopathy, JVD, bruits or thyromegaly. CARDIOVASCULAR: Shows regular rate and rhythm without appreciable murmurs. LUNGS: Reveal mild to moderately reduced air exchange, but no wheezes, rhonchi, or rales. ABDOMEN: Soft, nontender, nondistended with bowel sounds present. No mass palpable. No hepatosplenomegaly. GENITOURINARY AND RECTAL: Deferred. LOWER EXTREMITIES: Reveal no appreciable edema. No calf tenderness. No Homans sign. Absent distal pulses. No open areas, no bony deformities. SKIN: Warm and dry with some mild pallor. NEUROLOGIC: The patient is awake and alert, oriented to person and the fact that she is in the hospital, but not to time. Speech is intact. Cranial nerves intact. No lateralizing deficits. The patient has moderate short-term memory deficits for events that occurred within the last couple of days and mild cognitive deficits. PSYCHIATRIC: Mood is mildly anxious. Affect: Appropriate. LABORATORY DATA: White blood cell count 11.5, hemoglobin 11.7, hematocrit 35.3, platelet count 422,000. White blood count differential showed 79 polys, 13.6 lymphocytes, 6.2 monocytes, INR 4.5, APTT 45.6. The comprehensive metabolic profile was significant for sodium 149, carbon dioxide 35, BUN 73, creatinine 2.2. The albumin was low at 2.9, total protein normal 8.1. Magnesium was high at 2.9. The troponin was 0.20. BNP was 374 and CK was 35. The urinalysis revealed specific gravity 1.014, pH 5.0, 30 mg percent protein, moderate occult blood, large amount of leukocyte esterase, 24 RBCs, innumerable WBCs, many white blood cell clumps. Culture is pending. Blood cultures are pending. The chest x-ray was a single AP film, which revealed no acute cardiopulmonary process. The EKG revealed probable arm lead reversal. No further interpretation is possible. The noncontrast CT scan of the head reveals no acute intracranial abnormalities, atrophy and periventricular demyelinization consistent with small vessel ischemic changes. Right sphenoid sinus disease. IMPRESSION AND PLAN: 1. This 82-year-old white female presented with altered mental status, hypotension recorded at the shelter facility and clinical dehydration. The patient's urinalysis is consistent with a urinary tract infection. A culture is pending at this time. The patient will be admitted to medical/surgical bed with telemetry due to history of atrial fibrillation and aortic valve repair. She will be placed on IV fluids; however, will be cautious with the IV fluids due to the patient's history of chronic diastolic heart failure. We will begin Rocephin 1 gram IV every 24 hours and the adjust antibiotic coverage pending the urine culture result. We will follow up blood cultures as well. Lactic acid level was normal, so the patient does not have evidence of sepsis at this time. We will hold the patient's diuretics and monitor intake and output closely, provide Tylenol for any fever. 2. Altered mental status. The patient experiencing acute delirium from the urinary tract infection and dehydration. Her mental status is clearing since her initial presentation in the emergency department. We will continue to follow. We will try to avoid hypnotics and sedatives. However, the patient does normally take zolpidem 5 mg at bedtime, which I will provide as needed for insomnia. 3. History of aortic valve repair. The patient's valve is functioning well based on recent echocardiogram. She does have a history of chronic diastolic heart failure. We will monitor closely for fluid overload. 4. History of primary coagulopathy with DVTs and PEs. The patient's INR is supratherapeutic. Hold Coumadin and follow INR. Resume Coumadin when patient's INR is therapeutic. 5. Hypothyroidism. Continue with current dosage of levothyroxine. She did recently have a TSH performed and it was within therapeutic range. 6. History of iron deficiency anemia. The patient is continuing with ferrous sulfate 325 mg daily. H and H is normal, but I anticipate it will decrease with correction of the dehydration. We will monitor hemoglobin and hematocrit closely. 7. History of peripheral vascular disease. The patient is asymptomatic. Continue with aspirin. 8. History of chronic obstructive pulmonary disease. The patient had an exacerbation during the last hospitalization, she has been on prednisone 20 mg daily, which is being weaned slowly. She is also receiving Anoro and nebulizer treatments. We will continue with current regimen and wean prednisone as tolerated. The patient is currently receiving oxygen at 2 liters per minute per nasal cannula. We will ask respiratory therapy to humidify the oxygen to prevent excessive drying of the nasal passages. We will get the patient out of bed as soon as possible to help with respiratory effort. 9. History of left pubic ramus fracture. The patient has been experiencing less discomfort. At this point she will be provided with hydrocodone as needed. We will ask physical therapy to get the patient out of bed. There is no weightbearing limitations to the left lower extremity. 10. Hyperlipidemia. Continue with pravastatin. Lipid levels were checked recently are within acceptable range. 11. History of paroxysmal atrial fibrillation. Continue with sotalol. The patient has been in sinus rhythm for an extended period of time. 12. Constipation. Continue with Colace, provide milk of magnesia as needed. Boo Mrorissey MD JRM/ct , 07:32 PM , 07:54 PM [email or web address]
[2018-04-21] MEDS: Dextrose 5%/NaCl 0.45% Inj 1,000 ML IV.CONT SCH ×2 (05:00→17:20)
[2018-04-21] MEDS: Levothyroxine 50 MCG Tablet PO SCH ×2 (05:07→06:04)
[2018-04-21 05:37] LABS: Potassium 3.8 meq/L (3.5-5.1)
[2018-04-21 05:38] LABS: Hematocrit 32.4 % (35.0-46.0); Hemoglobin 10.3 gm/dL (11.6-15.3); Mean Corpuscular HGB Conc 31.7 % (32.0-36.0); Mean Corpuscular Hemoglobin 30.4 pg (27.0-34.0); Mean Corpuscular Volume 95.9 fL (80.0-100.0); Mean Platelet Volume 8.8 fL (7.0-11.0); Platelet Count 403 th/mm3 (150-450); Red Blood Count 3.37 mil/mm3 (4.00-5.30); Red Cell Distribution Width 16.8 % (11.6-17.2); White Blood Count 14.6 th/mm3 (4.0-11.0)
[2018-04-21 05:41] LABS: Calcium 8.8 mg/dL (8.5-10.1)
[2018-04-21 05:46] LABS: INR 4.6 Ratio
[2018-04-21] MEDS: predniSONE 20 MG Tablet PO SCH (09:23)
[2018-04-21] MEDS: Docusate Sodium 100 MG Capsule PO SCH (09:23)
[2018-04-21] MEDS: Umeclindinium 62.5 MCG/Vilanterol 25 MCG Inhaler INH SCH (09:23)
[2018-04-21] MEDS: Ferrous Sulfate 325 MG Tablet PO SCH (09:23)
--- NOTE | 2018-04-21 14:59 | ECG ---
Date Performed: 04/20/2018 Time Performed: 12:08:21 PTAGE: 82 years EKG: Sinus rhythm RIGHT BUNDLE BRANCH BLOCK LEFT ANTERIOR FASCICULAR BLOCK ABNORMAL ECG PREVIOUS TRACING : 04/20/2018 00.30 Since the previous tracing, no significant change noted DOCTOR: Cale Gonsalez Interpretating Date/Time 04/21/2018 14:58:28
--- NOTE | 2018-04-21 16:55 | P.PN ---
Subjective Interval history: Patient is less confused this morning. She was out of bed in chair. Work with physical therapy for transfer. Patient reported back pain which limited her time in the chair. Appetite is improving. IV access was lost last night. IV access could not be reestablished by available nursing. Venous access team was consulted and IV access reestablished this morning. Patient did not have IV fluids for 8 hours. Sodium level remains elevated. BUN and creatinine are lower. Patient denies shortness of breath with oxygen at 2 L/min per nasal cannula. Denies any cough or sputum production. Denies any chest pain, nausea or vomiting. Active Medications Generic Name Dose Route Start Last Admin Trade Name Freq PRN Reason Stop Dose Admin Acetaminophen 650 mg 04/20/18 01:43 04/20/18 03:22 Tylenol PO 650 mg Q4H PRN Administration PAIN SCALE 1 TO 3 MILD Hydrocodone Bitart/Acetaminophen 1 tab 04/20/18 19:33 04/21/18 09:24 [place] 5/325 PO 1 tab Q6H PRN Administration PAIN SCALE 6 TO 10 Al Hydroxide/Mg Hydroxide 30 ml 04/20/18 01:43 04/21/18 09:24 Milk Of Magnesia Liq PO 30 ml Q12H PRN Administration Mild Constipation Albuterol 1 ampul 04/20/18 08:00 04/21/18 14:01 Duoneb Neb (Dennise) NEB 1 ampul TID NEB DENNISE Administration Aspirin 81 mg 04/20/18 09:00 04/21/18 09:23 Aspirin Chew PO 81 mg DAILY DNENISE Administration Docusate Sodium 100 mg 04/20/18 09:00 04/21/18 09:23 Colace PO 100 mg DAILY DENNISE Administration Ferrous Sulfate 325 mg 04/20/18 09:00 04/21/18 09:23 Ferosul PO 325 mg DAILY DENNISE Administration Sodium Chloride 1,000 mls @ 0 mls/hr 04/20/18 01:00 Ns Inj IV.SIG BOLUS DENNISE Wide Open Ceftriaxone Sodium 1,000 mg/ 100 mls @ 200 mls/hr 04/20/18 21:00 04/20/18 20: 43 Sodium Chloride IV.SIG Infused Q24H DENNISE Infusion Dextrose/Sodium Chloride 1,000 mls @ 100 mls/hr 04/20/18 19:45 04/21/18 05:00 D5w/1/2 Ns Inj IV.CONT Not Given .Q10H DENNISE Levothyroxine Sodium 50 mcg 04/20/18 07:00 04/21/18 06:04 Synthroid PO Not Given DAILY@0700 DENNISE Ondansetron HCl 4 mg 04/20/18 01:43 Zofran Inj IV.PUSH Q6H PRN NAUSEA OR VOMITING Pravastatin Sodium 20 mg 04/20/18 09:00 04/21/18 09:23 Pravachol PO 20 mg DAILY DENNISE Administration Prednisone 10 mg 04/22/18 09:00 Deltasone PO DAILY DENNISE Sotalol HCl 40 mg 04/20/18 09:00 04/21/18 09:23 Betapace PO 40 mg BID DENNISE Administration Umeclidinium/Vilanterol 1 puff 04/20/18 09:00 04/21/18 09:23 Anoro-Ellipta 62.5/25 Mcg Inh INH Not Given DAILY [facility] Zolpidem Tartrate 5 mg 04/20/18 01:43 04/20/18 20:13 Ambien PO 5 mg HS PRN Administration INSOMNIA Physical Exam Vital signs: Vital Signs 04/20/18 19:54 04/20/18 20:00 04/21/18 00:00 Temperature 96.2 F L 96.3 F L Pulse Rate 69 67 75 Respiratory Rate 16 20 20 Blood Pressure 121/57 L 151/67 H Pulse Oximetry 91 L 91 L 91 L 04/21/18 04:00 04/21/18 07:20 04/21/18 08:00 Temperature 96 F L 97.4 F L Pulse Rate 72 69 69 Respiratory Rate 20 16 16 Blood Pressure 122/59 L 119/59 L Pulse Oximetry 91 L 95 04/21/18 12:00 04/21/18 14:02 04/21/18 14:03 Temperature 97.8 F Pulse Rate 65 74 Respiratory Rate 21 16 Blood Pressure 85/50 L Pulse Oximetry 95 95 04/21/18 16:00 Temperature 97.6 F Pulse Rate 69 Respiratory Rate 22 Blood Pressure 107/53 L Pulse Oximetry 100 Intake & Output 04/20/18 04/21/18 04/21/18 18:59 06:59 18:59 Intake Total 1000 / 1000 620 / 620 440 / 440 Output Total 500 / 500 200 / 200 Balance 1000 / 1000 120 / 120 240 / 240 Weight 125 lb 14.143 oz Intake: IV 1000 / 1000 500 / 500 NS Inj 1,000 ML @ 100 mls/hr IV 1000 / 1000 400 / 400 .CONT .Q10H DENNISE Rx#:[id number] Rocephin Inj 1,000 MG In NS Inj 100 / 100 100 ML @ 200 mls/hr IV.SIG Q24H DENNISE Rx#:[id number] Oral 120 / 120 440 / 440 Output: Urine 500 / 500 200 / 200 Other: # Voids 2 - Constitutional Comments: Frail elderly white female sitting in bed with oxygen in place in no acute distress - Routine Neck Exam Present: supple Comments: No lymphadenopathy, JVD, bruits or thyromegaly - Routine Respiratory Exam Comments: Clear to auscultation bilaterally with moderately reduced air exchange. No wheezes, rhonchi or rales - Routine Cardiovascular Exam Comments: Regular rate and rhythm without murmur. - Routine Abdominal Exam Comments: Soft, nontender nondistended with bowel sounds present. No masses - Routine Extremities Exam Comments: No calf tenderness or Homans sign. No edema of the lower extremities. Absent distal pulses. Left posterior heel reveals a 1.5 x 2 cm eschar. No surrounding edema or erythema. No discharge or odor. - Routine Neurological Exam Awake and alert. Oriented to person and place but not to time. Speech is intact. No lateralizing deficits. Cranial nerves intact. Results - Labs CBC & Chem 7: 04/21/18 04:45 04/21/18 04:45 Laboratory Results - last 24 hr 04/20/18 04/21/18 04/21/18 00:24 04:45 04:45 WBC 14.6 H RBC 3.37 L Hgb 10.3 L Hct 32.4 L MCV 95.9 MCH 30.4 MCHC 31.7 L RDW 16.8 Plt Count 403 MPV 8.8 PT 46.0 H INR 4.6 Sodium Potassium Chloride Carbon Dioxide Anion Gap BUN Creatinine Estimated GFR Random Glucose Calcium Urine Color Yellow Urine Clarity Cloudy H Urine pH 5.0 Ur Specific [place] 1.014 Urine Protein 30 H Urine Glucose (UA) Negative Urine Ketones Negative Urine Occult Blood Moderate H Urine Nitrate Negative Urine Bilirubin Negative Urine Urobilinogen Less than 2 Ur Leukocyte Esterase Large H Urine RBC 24 H Urine WBC Urine WBC Clumps Many H Urine Bacteria Rare H Hyaline Casts 9 Micro UA Comment Cath-culture ind Urine Culture Comments Cath-cult indicated 04/21/18 04:45 WBC RBC Hgb Hct MCV MCH MCHC RDW Plt Count MPV PT INR Sodium 150 H Potassium 3.8 Chloride 111 H Carbon Dioxide 34.0 H Anion Gap 5 BUN 60 H Creatinine 1.40 H Estimated GFR 36 L Random Glucose 94 Calcium 8.8 Urine Color Urine Clarity Urine pH Ur Specific [place] Urine Protein Urine Glucose (UA) Urine Ketones Urine Occult Blood Urine Nitrate Urine Bilirubin Urine Urobilinogen Ur Leukocyte Esterase Urine RBC Urine WBC Urine WBC Clumps Urine Bacteria Hyaline Casts Micro UA Comment Urine Culture Comments Microbiology 04/20/18 00:24 Catheterized Urine Urine Culture - Preliminary gram negative rods 04/20/18 00:10 Blood - Peripheral Aerobic Blood Culture - Preliminary No growth in 1 day 04/20/18 00:10 Blood - Peripheral Anaerobic Blood Culture - Preliminary No growth in 1 day 04/20/18 00:05 Blood - Peripheral Aerobic Blood Culture - Preliminary No growth in 1 day 04/20/18 00:05 Blood - Peripheral Anaerobic Blood Culture - Preliminary No growth in 1 day Assessment and Plan - Assessment (1) Urinary tract infection Code(s): N39.0 - Urinary tract infection, site not specified Status: Acute Plan: Patient continues to receive ceftriaxone. Urine culture preliminary report reveals gram-negative rods. Will await identification and sensitivities. Adjust antibiotic coverage as needed. (2) Hypernatremia Code(s): E87.0 - Hyperosmolality and hypernatremia Status: Acute Plan: The patient had hypernatremic dehydration. IV fluids were discontinued for 8 hours last night due to inability to achieve IV access. Patient is currently receiving D5 half-normal saline. We will repeat electrolytes in morning. If necessary, changed to hypertonic saline. I have requested the nursing staff encourage the patient to take oral fluids. (3) Decubitus ulcer of left heel, unstageable Code(s): L89.620 - Pressure ulcer of left heel, unstageable Status: Chronic Plan: Patient has history of a similar pressure wound on the left heel which took over a year to heal. This wound has been present since last hospitalization. No evidence of infection. I discussed with the nursing staff the importance of offloading the heels while in bed. The patient has peripheral vascular disease which reduces her ability to heal the wound. 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 Will continue to reduce pressure on the wound. Monitor for any signs or symptoms of infection. (4) Closed fracture of pubic ramus Code(s): S32.599A - Other specified fracture of unspecified pubis, initial encounter for closed fracture Status: Acute Plan: Patient has an inferior pubic ramus fracture which is healing. She has some mild discomfort at this time. (5) Iron deficiency anemia Code(s): D50.9 - Iron deficiency anemia, unspecified Status: Chronic Plan: Patient continues with ferrous sulfate. Will follow H&H. Anticipate decrease in H&H with volume resuscitation. (6) Chronic kidney disease (CKD), stage III (moderate) Code(s): N18.3 - Chronic kidney disease, stage 3 (moderate) Status: Chronic Plan: The patient's BUN and creatinine were higher than baseline due to her dehydration. BUN and creatinine are improving and approaching baseline. Will follow. (7) Chronic obstructive pulmonary disease (COPD) Code(s): J44.9 - Chronic obstructive pulmonary disease, unspecified Status: Chronic Plan: The patient recently had exacerbation of COPD which has improved. I am going to reduce her prednisone to 10 mg daily. Continue with nebulizer treatments and Anoro ellipta. Will wean oxygen as tolerated. (8) Hypothyroidism Code(s): E03.9 - Hypothyroidism, unspecified Status: Chronic Plan: Continue with levothyroxine (9) Peripheral vascular disease Code(s): I73.9 - Peripheral vascular disease, unspecified Status: Chronic Plan: Patient has moderately severe peripheral vascular disease. 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 She has not been stable enough to proceed. She is asymptomatic for any claudication or pain at rest. Continue with aspirin. (10) Delirium due to another medical condition Code(s): F05 - Delirium due to known physiological condition Status: Acute Plan: Delirium is clearing as patient's medical condition improves. Will follow. Continue to reorient frequently. She is less anxious today. (11) Insomnia Code(s): G47.00 - Insomnia, unspecified Status: Chronic Plan: Patient has used zolpidem 5 mg at bedtime for insomnia for years. Will continue. 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 CT/PET scan was recommended but needs to be performed on an outpatient basis. Will plan to arrange this as an outpatient when patient is more medically stable. (13) Other spondylosis with radiculopathy, lumbar region Code(s): M47.26 - Other spondylosis with radiculopathy, lumbar region Status: Chronic Plan: Patient has daily pain in the low back with intermittent pain into the lower extremities. She has typically used acetaminophen which is available. She has hydrocodone to use as needed as well. 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 She has been on anticoagulation with Coumadin for years. INR supratherapeutic. Coumadin on hold until INR is therapeutic. (15) Paroxysmal atrial fibrillation Code(s): I48.0 - Paroxysmal atrial fibrillation Status: Chronic Plan: The patient has a history of paroxysmal atrial fibrillation. She has been in sinus rhythm. Continue with low-dose sotalol. She is on Coumadin for prophylaxis against embolism. INR supratherapeutic. Coumadin on hold until INR is therapeutic. (1) Urinary tract infection Qualifiers: Urinary tract infection type: acute cystitis Hematuria presence: without hematuria Qualified Code(s): N30.00 - Acute cystitis without hematuria (4) Closed fracture of pubic ramus Qualifiers: Encounter type: subsequent encounter Laterality: unspecified laterality Fracture healing: with routine healing Qualified Code(s): S32.599D - Other specified fracture of unspecified pubis, subsequent encounter for fracture with routine healing (5) Iron deficiency anemia Qualifiers: Iron deficiency anemia type: unspecified iron deficiency (7) Chronic obstructive pulmonary disease (COPD) Qualifiers: COPD type: emphysema Emphysema type: panlobular Qualified Code(s): J43.1 - Panlobular emphysema (8) Hypothyroidism Qualifiers: Hypothyroidism type: unspecified (11) Insomnia Qualifiers: Insomnia type: unspecified Qualified Code(s): G47.00 - Insomnia, unspecified
[2018-04-22] MEDS: Dextrose 5%/NaCl 0.45% Inj 1,000 ML IV.CONT SCH (01:42)
[2018-04-22] MEDS: Levothyroxine 50 MCG Tablet PO SCH (06:03)
[2018-04-22 06:42] LABS: Hematocrit 28.3 % (35.0-46.0); Mean Corpuscular HGB Conc 31.8 % (32.0-36.0); Mean Corpuscular Hemoglobin 30.6 pg (27.0-34.0); Mean Corpuscular Volume 96.1 fL (80.0-100.0); Mean Platelet Volume 8.9 fL (7.0-11.0); Platelet Count 366 th/mm3 (150-450); Red Blood Count 2.95 mil/mm3 (4.00-5.30); Red Cell Distribution Width 16.4 % (11.6-17.2); White Blood Count 13.3 th/mm3 (4.0-11.0)
[2018-04-22 06:51] LABS: Chloride 106 meq/L (98-107); Potassium 4.2 meq/L (3.5-5.1); Sodium 142 meq/L (136-145)
[2018-04-22 06:57] LABS: Albumin 2.2 g/dL (3.4-5.0); Anion Gap 7 meq/L (5-15); Calcium 8.4 mg/dL (8.5-10.1); Carbon Dioxide 29.4 meq/L (21.0-32.0)
[2018-04-22 06:58] LABS: Blood Urea Nitrogen 51 mg/dL (7-18); Glucose,Random 135 mg/dL (74-106)
[2018-04-22 07:00] LABS: Alanine Aminotransferase 21 U/L (10-53); Aspartate Aminotransferase 25 U/L (15-37)
[2018-04-22 07:01] LABS: Glomerular Filtration Rate 39 mL/min (>89)
[2018-04-22 07:02] LABS: Total Protein 6.4 g/dL (6.4-8.2)
[2018-04-22 07:03] LABS: Alkaline Phosphatase 67 U/L (45-117)
[2018-04-22] MEDS: Umeclindinium 62.5 MCG/Vilanterol 25 MCG Inhaler INH SCH (08:11)
[2018-04-22] MEDS: predniSONE 10 MG Tablet PO SCH (08:12)
[2018-04-22] MEDS: Ferrous Sulfate 325 MG Tablet PO SCH (08:12)
[2018-04-22] MEDS: Docusate Sodium 100 MG Capsule PO SCH (08:13)
--- NOTE | 2018-04-22 08:42 | P.PN ---
Subjective Interval history: The patient had an uneventful night. She slept well. She is eating breakfast this morning. Mental status is at baseline. Denies shortness of breath. Pain from left pubic ramus fracture is under good control at this time. Denies any chest pain or palpitations. Active Medications Generic Name Dose Route Start Last Admin Trade Name Freq PRN Reason Stop Dose Admin Acetaminophen 650 mg 04/20/18 01:43 04/20/18 03:22 Tylenol PO 650 mg Q4H PRN Administration PAIN SCALE 1 TO 3 MILD Hydrocodone Bitart/Acetaminophen 1 tab 04/20/18 19:33 04/22/18 01:42 [place] 5/325 PO 1 tab Q6H PRN Administration PAIN SCALE 6 TO 10 Al Hydroxide/Mg Hydroxide 30 ml 04/20/18 01:43 04/21/18 09:24 Milk Of Magnesia Liq PO 30 ml Q12H PRN Administration Mild Constipation Albuterol 1 ampul 04/20/18 08:00 04/22/18 07:32 Duoneb Neb (Dennise) NEB 1 ampul TID NEB DENNISE Administration Aspirin 81 mg 04/20/18 09:00 04/22/18 08:13 Aspirin Chew PO 81 mg DAILY DENNISE Administration Docusate Sodium 100 mg 04/20/18 09:00 04/22/18 08:13 Colace PO 100 mg DAILY DENNISE Administration Ferrous Sulfate 325 mg 04/20/18 09:00 04/22/18 08:12 Ferosul PO 325 mg DAILY DENNISE Administration Sodium Chloride 1,000 mls @ 0 mls/hr 04/20/18 01:00 Ns Inj IV.SIG BOLUS DENNISE Wide Open Ceftriaxone Sodium 1,000 mg/ 100 mls @ 200 mls/hr 04/20/18 21:00 04/21/18 21: 43 Sodium Chloride IV.SIG Infused Q24H DENNISE Infusion Levothyroxine Sodium 50 mcg 04/20/18 07:00 04/22/18 06:03 Synthroid PO 50 mcg DAILY@0700 DENNISE Administration Ondansetron HCl 4 mg 04/20/18 01:43 Zofran Inj IV.PUSH Q6H PRN NAUSEA OR VOMITING Pravastatin Sodium 20 mg 04/20/18 09:00 04/22/18 08:21 Pravachol PO 20 mg DAILY DENNISE Administration Prednisone 10 mg 04/22/18 09:00 04/22/18 08:12 Deltasone PO 10 mg DAILY DENNISE Administration Sotalol HCl 40 mg 04/20/18 09:00 04/22/18 08:12 Betapace PO 40 mg BID DENNISE Administration Umeclidinium/Vilanterol 1 puff 04/20/18 09:00 04/22/18 08:11 Anoro-Ellipta 62.5/25 Mcg Inh INH 1 puff DAILY DENNISE Administration Zolpidem Tartrate 5 mg 04/20/18 01:43 04/20/18 20:13 Ambien PO 5 mg HS PRN Administration INSOMNIA Physical Exam Vital signs: Vital Signs 04/21/18 12:00 04/21/18 14:02 04/21/18 14:03 Temperature 97.8 F Pulse Rate 65 74 Respiratory Rate 21 16 Blood Pressure 85/50 L Pulse Oximetry 95 95 04/21/18 16:00 04/21/18 19:12 04/21/18 20:00 Temperature 97.6 F 96.9 F L Pulse Rate 69 62 61 Respiratory Rate 22 18 18 Blood Pressure 107/53 L 99/54 L Pulse Oximetry 100 94 L 96 04/22/18 00:00 04/22/18 04:00 04/22/18 07:41 Temperature 96.6 F L 96.5 F L Pulse Rate 59 L 56 L Respiratory Rate 18 18 Blood Pressure 116/58 L 103/52 L Pulse Oximetry 97 97 98 04/22/18 08:00 Temperature 97.4 F L Pulse Rate 59 L Respiratory Rate 19 Blood Pressure 116/56 L Pulse Oximetry 99 Intake & Output 04/21/18 04/22/18 04/22/18 18:59 06:59 18:59 Intake Total 1680 / 1680 1100 / 1100 220 / 220 Output Total 500 / 500 Balance 1180 / 1180 1100 / 1100 220 / 220 Weight 134 lb 0.657 oz Intake: IV 1000 / 1000 1100 / 1100 100 / 100 D5W/1/2 NS Inj 1,000 ML @ 100 1000 / 1000 1000 / 1000 100 / 100 mls/hr IV.CONT .Q10H DENNISE Rx#: [id number] Rocephin Inj 1,000 MG In NS Inj 100 / 100 100 ML @ 200 mls/hr IV.SIG Q24H DENNISE Rx#:[id number] Oral 680 / 680 120 / 120 Output: Urine 500 / 500 Other: # Incontinent Voids 400 # Urine Diapers 2 # Incontinent Bowel Movements 1 - Constitutional Comments: Frail elderly white female sitting up in bed in no acute distress - Routine Neck Exam Present: supple Comments: No lymphadenopathy, JVD or bruits. - Routine Respiratory Exam Present: CTA bilaterally Comments: Moderately reduced air exchange bilaterally - Routine Cardiovascular Exam Present: RRR - Routine Abdominal Exam Present: soft Comments: Nontender, nondistended with bowel sounds present - Routine Extremities Exam Comments: No edema or calf tenderness. Absent distal pulses. Left posterior heel reveals a 2 x 3 cm open wound with eschar but no surrounding edema or erythema. There is a small amount of blood on the sheets under the wound. - Routine Neurological Exam Awake and alert. Oriented to person and place but not to time. Cranial nerves intact. Speech intact. There are some gaps in her short-term memory around the time of admission but otherwise patient's mental status is back to baseline. Results - Labs CBC & Chem 7: 04/22/18 05:10 04/22/18 05:10 Laboratory Results - last 24 hr 04/20/18 04/22/18 04/22/18 00:24 05:10 05:10 WBC 13.3 H RBC 2.95 L Hgb 9.0 L Hct 28.3 L MCV 96.1 MCH 30.6 MCHC 31.8 L RDW 16.4 Plt Count 366 MPV 8.9 Sodium 142 Potassium 4.2 Chloride 106 Carbon Dioxide 29.4 Anion Gap 7 BUN 51 H Creatinine 1.30 H Estimated GFR 39 L Random Glucose 135 H Calcium 8.4 L Total Bilirubin 0.3 AST 25 ALT 21 Alkaline Phosphatase 67 Total Protein 6.4 D Albumin 2.2 L Urine Color Yellow Urine Clarity Cloudy H Urine pH 5.0 Ur Specific [place] 1.014 Urine Protein 30 H Urine Glucose (UA) Negative Urine Ketones Negative Urine Occult Blood Moderate H Urine Nitrate Negative Urine Bilirubin Negative Urine Urobilinogen Less than 2 Ur Leukocyte Esterase Large H Urine RBC 24 H Urine WBC Urine WBC Clumps Many H Urine Bacteria Rare H Hyaline Casts 9 Micro UA Comment Cath-culture ind Urine Culture Comments Cath-cult indicated Microbiology 04/20/18 00:24 Catheterized Urine Urine Culture - Preliminary gram negative rods 04/20/18 00:10 Blood - Peripheral Aerobic Blood Culture - Preliminary No growth in 1 day 04/20/18 00:10 Blood - Peripheral Anaerobic Blood Culture - Preliminary No growth in 1 day 04/20/18 00:05 Blood - Peripheral Aerobic Blood Culture - Preliminary No growth in 1 day 04/20/18 00:05 Blood - Peripheral Anaerobic Blood Culture - Preliminary No growth in 1 day Assessment and Plan - Assessment (1) Urinary tract infection Code(s): N39.0 - Urinary tract infection, site not specified Status: Acute Plan: Continue with ceftriaxone. Awaiting culture results. Adjust antibiotic coverage as needed. Plan to transition to oral antibiotics once WANDA's are available (2) Decubitus ulcer of left heel, unstageable Code(s): L89.620 - Pressure ulcer of left heel, unstageable Status: Chronic Plan: No evidence of infection. Will place hydrocolloid dressing and change every 3 days. I have discussed with the nurse importance of offloading any pressure on the left heel while patient is in bed. (3) Closed fracture of pubic ramus Code(s): S32.599A - Other specified fracture of unspecified pubis, initial encounter for closed fracture Status: Acute Plan: Patient has an inferior pubic ramus fracture which is healing. She has some discomfort when out of bed in chair but it has improved overall. She has oral analgesics available as needed. (4) Iron deficiency anemia Code(s): D50.9 - Iron deficiency anemia, unspecified Status: Chronic Plan: H&H are lower due to volume resuscitation. Will follow. Continue with ferrous sulfate. (5) Chronic kidney disease (CKD), stage III (moderate) Code(s): N18.3 - Chronic kidney disease, stage 3 (moderate) Status: Chronic Plan: Renal function close to baseline. Will follow. (6) Chronic obstructive pulmonary disease (COPD) Code(s): J44.9 - Chronic obstructive pulmonary disease, unspecified Status: Chronic Plan: Respiratory status is stable. I have decreased the patient's prednisone to 10 mg daily. Will continue to wean as tolerated. Continue with nebulizer treatments and inhalers. Continue with oxygen and will wean oxygen as tolerated. (7) Hypothyroidism Code(s): E03.9 - Hypothyroidism, unspecified Status: Chronic Plan: Continue with levothyroxine (8) Peripheral vascular disease Code(s): I73.9 - Peripheral vascular disease, unspecified Status: Chronic Plan: Patient has moderately severe peripheral vascular disease. 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 She has not been stable enough to proceed. She is asymptomatic for any claudication or pain at rest. Continue with aspirin. (9) Insomnia Code(s): G47.00 - Insomnia, unspecified Status: Chronic Plan: Patient has used zolpidem 5 mg at bedtime for insomnia for years. Will continue. 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 CT/PET scan was recommended but needs to be performed on an outpatient basis. Will plan to arrange this as an outpatient when patient is more medically stable. (11) Other spondylosis with radiculopathy, lumbar region Code(s): M47.26 - Other spondylosis with radiculopathy, lumbar region Status: Chronic Plan: Patient has daily pain in the low back with intermittent pain into the lower extremities. She has typically used acetaminophen which is available. She has hydrocodone to use as needed as well. 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 She has been on anticoagulation with Coumadin for years. INR supratherapeutic. Coumadin on hold until INR is therapeutic. (13) Paroxysmal atrial fibrillation Code(s): I48.0 - Paroxysmal atrial fibrillation Status: Chronic Plan: The patient has a history of paroxysmal atrial fibrillation. She has been in sinus rhythm. Continue with low-dose sotalol. She is on Coumadin for prophylaxis against embolism. INR supratherapeutic. Coumadin on hold until INR is therapeutic. (14) Delirium due to another medical condition Code(s): F05 - Delirium due to known physiological condition Status: Resolved Plan: Mental status is back to baseline. (15) Hypernatremia Code(s): E87.0 - Hyperosmolality and hypernatremia Status: Resolved Plan: Sodium level is now normal. Discontinue IV fluids as patient is taking oral intake better. Follow sodium level. Dehydration is clinically resolved - Plan Discharge Planning: Plan is for patient to be discharged back to long-term facility. Anticipate discharge in the next 1-2 days depending on oral intake, renal function and results of urine culture. (1) Urinary tract infection Qualifiers: Urinary tract infection type: acute cystitis Hematuria presence: without hematuria Qualified Code(s): N30.00 - Acute cystitis without hematuria (3) Closed fracture of pubic ramus Qualifiers: Encounter type: subsequent encounter Laterality: unspecified laterality Fracture healing: with routine healing Qualified Code(s): S32.599D - Other specified fracture of unspecified pubis, subsequent encounter for fracture with routine healing (4) Iron deficiency anemia Qualifiers: Iron deficiency anemia type: unspecified iron deficiency (6) Chronic obstructive pulmonary disease (COPD) Qualifiers: COPD type: emphysema Emphysema type: panlobular Qualified Code(s): J43.1 - Panlobular emphysema (7) Hypothyroidism Qualifiers: Hypothyroidism type: unspecified (9) Insomnia Qualifiers: Insomnia type: unspecified Qualified Code(s): G47.00 - Insomnia, unspecified
[2018-04-23] MEDS: Levothyroxine 50 MCG Tablet PO SCH (06:22)
[2018-04-23 07:28] LABS: Hematocrit 28.9 % (35.0-46.0); Hemoglobin 9.1 gm/dL (11.6-15.3); Mean Corpuscular HGB Conc 31.4 % (32.0-36.0); Mean Corpuscular Hemoglobin 30.2 pg (27.0-34.0); Mean Corpuscular Volume 96.2 fL (80.0-100.0); Mean Platelet Volume 8.9 fL (7.0-11.0); Platelet Count 391 th/mm3 (150-450); Red Blood Count 3.01 mil/mm3 (4.00-5.30); Red Cell Distribution Width 16.5 % (11.6-17.2)
[2018-04-23 07:45] LABS: INR 3.4 Ratio; Prothrombin Time 34.7 sec (9.8-11.6)
[2018-04-23 08:40] LABS: Bilirubin,Urine Negative (Negative); Clarity,Urine Slightly Cloudy (Clear); Color,Urine Yellow (Yellw/Straw); Glucose,Urine (UA) Negative (Negative); Leukocyte Esterase,Urine Large (Negative); Nitrite,Urine Negative (Negative); PH,Urine 5.5 (5.0-8.5); Specific Gravity,Urine 1.015 (1.002-1.035); Urobilinogen,Urine 0.2 mg/dL (Less than 2)
[2018-04-23 08:48] LABS: Collection Time,Urine 710 hours
[2018-04-23 08:49] LABS: WBC,Urine 51-189 /hpf (0-5)
[2018-04-23] MEDS: Ferrous Sulfate 325 MG Tablet PO SCH (08:50)
[2018-04-23] MEDS: Docusate Sodium 100 MG Capsule PO SCH (08:50)
[2018-04-23 08:51] LABS: Amorphous Sediment,Urine Moderate /hpf; Bacteria,Urine Occasional /hpf
[2018-04-23] MEDS: Umeclindinium 62.5 MCG/Vilanterol 25 MCG Inhaler INH SCH (08:51)
[2018-04-23] MEDS: predniSONE 10 MG Tablet PO SCH (08:51)
[2018-04-23 09:26] LABS: Calcium 8.2 mg/dL (8.5-10.1); Carbon Dioxide 31.7 meq/L (21.0-32.0); Potassium 4.1 meq/L (3.5-5.1)
--- NOTE | 2018-04-23 18:49 | P.PN ---
Subjective Interval history: Urine culture is positive for Salmonella. Patient had decreased urine output. Bladder scan revealed >1000 cc of urine in bladder. [place] catheter placed. Blood pressure under adequate control. Patient denies any chest pain, palpitations or shortness of breath with oxygen at 2 L/min per nasal cannula. No cough, nausea or vomiting. Oral intake is good. Sleeping well without zolpidem for the last 3 nights. Mental status is at baseline. Patient feeling stronger. Bowels are moving. Active Medications Generic Name Dose Route Start Last Admin Trade Name Freq PRN Reason Stop Dose Admin Acetaminophen 650 mg 04/20/18 01:43 04/20/18 03:22 Tylenol PO 650 mg Q4H PRN Administration PAIN SCALE 1 TO 3 MILD Hydrocodone Bitart/Acetaminophen 1 tab 04/20/18 19:33 04/22/18 15:55 [place] 5/325 PO 1 tab Q6H PRN Administration PAIN SCALE 6 TO 10 Al Hydroxide/Mg Hydroxide 30 ml 04/20/18 01:43 04/21/18 09:24 Milk Of Magnesia Liq PO 30 ml Q12H PRN Administration Mild Constipation Albuterol 1 ampul 04/20/18 08:00 04/23/18 14:05 Duoneb Neb (Dennise) NEB 1 ampul TID NEB DENNISE Administration Aspirin 81 mg 04/20/18 09:00 04/23/18 08:59 Aspirin Chew PO 81 mg DAILY DENNISE Administration Docusate Sodium 100 mg 04/20/18 09:00 04/23/18 08:50 Colace PO 100 mg DAILY DENNISE Administration Ferrous Sulfate 325 mg 04/20/18 09:00 04/23/18 08:50 Ferosul PO 325 mg DAILY DENNISE Administration Sodium Chloride 1,000 mls @ 0 mls/hr 04/20/18 01:00 Ns Inj IV.SIG BOLUS DENNISE Wide Open Levothyroxine Sodium 50 mcg 04/20/18 07:00 04/23/18 06:22 Synthroid PO 50 mcg DAILY@0700 DENNISE Administration Ondansetron HCl 4 mg 04/20/18 01:43 Zofran Inj IV.PUSH Q6H PRN NAUSEA OR VOMITING Pravastatin Sodium 20 mg 04/20/18 09:00 04/23/18 08:51 Pravachol PO 20 mg DAILY DENNISE Administration Prednisone 10 mg 04/22/18 09:00 04/23/18 08:51 Deltasone PO 10 mg DAILY DENNISE Administration Sotalol HCl 40 mg 04/20/18 09:00 04/23/18 08:50 Betapace PO 40 mg BID DENNISE Administration Trimethoprim/Sulfamethoxazole 1 tab 04/23/18 19:00 Bactrim Ds PO BID DENNISE Umeclidinium/Vilanterol 1 puff 04/20/18 09:00 04/23/18 08:51 Anoro-Ellipta 62.5/25 Mcg Inh INH 1 puff DAILY DENNISE Administration Zolpidem Tartrate 5 mg 04/20/18 01:43 04/20/18 20:13 Ambien PO 5 mg HS PRN Administration INSOMNIA Physical Exam Vital signs: Vital Signs 04/22/18 19:00 04/22/18 20:00 04/23/18 00:00 Temperature 97.4 F L 96.3 F L Pulse Rate 67 61 58 L Respiratory Rate 20 20 20 Blood Pressure 99/53 L 117/58 L Pulse Oximetry 100 96 04/23/18 04:00 04/23/18 07:25 04/23/18 08:00 Temperature 96.5 F L 96.5 F L Pulse Rate 72 69 Respiratory Rate 20 20 Blood Pressure 119/60 98/48 L Pulse Oximetry 98 96 100 04/23/18 12:00 04/23/18 14:07 04/23/18 16:00 Temperature 96.4 F L 98 F Pulse Rate 66 63 73 Respiratory Rate 20 20 20 Blood Pressure 97/55 L 103/51 L Pulse Oximetry 97 96 Intake & Output 04/22/18 04/23/18 04/23/18 18:59 06:59 18:59 Intake Total 820 / 820 100 / 100 960 / 960 Output Total 500 / 500 350 / 350 1450 / 1450 Balance 320 / 320 -250 / -250 -490 / -490 Weight 134 lb 7.712 oz Intake: IV 100 / 100 100 / 100 D5W/1/2 NS Inj 1,000 ML @ 100 100 / 100 mls/hr IV.CONT .Q10H DENNISE Rx#: [id number] Rocephin Inj 1,000 MG In NS Inj 100 / 100 100 ML @ 200 mls/hr IV.SIG Q24H DENNISE Rx#:[id number] Oral 720 / 720 960 / 960 Output: Urine 500 / 500 350 / 350 Urine Amount (Catheter) 1450 / 1450 Indwelling Urethral Catheter 1450 / 1450 Other: # Incontinent Voids 1 # Urine Diapers 1 # Bowel Movements 1 - Constitutional no acute distress - Routine Neck Exam Present: supple Comments: No lymphadenopathy, JVD, bruits or thyromegaly - Routine Respiratory Exam Comments: Clear to auscultation with mild to moderately reduced air exchange bilaterally. - Routine Cardiovascular Exam Present: RRR - Routine Abdominal Exam Present: soft Comments: Nontender, nondistended with bowel sounds present - Routine Extremities Exam Comments: No calf tenderness or Homans sign. No edema. - Urinary Catheter Management Indwelling Urethral Catheter Cath placed during this visit: yes Reason for continuing: Acute urinary retention Insertion date: 04/23/18 Insertion time: 07:00 Results - Labs CBC & Chem 7: 04/23/18 06:20 04/23/18 08:45 Laboratory Results - last 24 hr 04/23/18 04/23/18 04/23/18 06:20 06:20 07:10 WBC 12.0 H RBC 3.01 L Hgb 9.1 L Hct 28.9 L MCV 96.2 MCH 30.2 MCHC 31.4 L RDW 16.5 Plt Count 391 MPV 8.9 PT 34.7 H D INR 3.4 Sodium Potassium Chloride Carbon Dioxide Anion Gap BUN Creatinine Estimated GFR Random Glucose Calcium Ur Collection Type Cath Urine Color Yellow Urine Clarity Slightly cloudy Urine pH 5.5 Ur Specific [place] 1.015 Urine Protein Negative Urine Glucose (UA) Negative Urine Ketones Negative Urine Occult Blood Moderate H Urine Nitrate Negative Urine Bilirubin Negative Urine Urobilinogen 0.2 Ur Leukocyte Esterase Large H Urine RBC 4-15 H Urine WBC 51-189 H Urine WBC Clumps Moderate H Ur Squamous Epith Cells 6-10 H Ur Transition Epith Cell 1-5 H Amorphous Sediment Moderate H Urine Bacteria Occasional H Micro UA Comment Cath-culture ind Ur Microscopic Review Microscopic reviewed Urine Culture Comments Cath-cult indicated Urine Collection Time 710 04/23/18 08:45 WBC RBC Hgb Hct MCV MCH MCHC RDW Plt Count MPV PT INR Sodium 138 Potassium 4.1 Chloride 102 Carbon Dioxide 31.7 Anion Gap 4 L BUN 48 H Creatinine 1.40 H Estimated GFR 36 L Random Glucose 85 Calcium 8.2 L Ur Collection Type Urine Color Urine Clarity Urine pH Ur Specific [place] Urine Protein Urine Glucose (UA) Urine Ketones Urine Occult Blood Urine Nitrate Urine Bilirubin Urine Urobilinogen Ur Leukocyte Esterase Urine RBC Urine WBC Urine WBC Clumps Ur Squamous Epith Cells Ur Transition Epith Cell Amorphous Sediment Urine Bacteria Micro UA Comment Ur Microscopic Review Urine Culture Comments Urine Collection Time Microbiology 04/20/18 00:10 Blood - Peripheral Aerobic Blood Culture - Preliminary No growth in 3 days 04/20/18 00:10 Blood - Peripheral Anaerobic Blood Culture - Preliminary No growth in 3 days 04/20/18 00:05 Blood - Peripheral Aerobic Blood Culture - Preliminary No growth in 3 days 04/20/18 00:05 Blood - Peripheral Anaerobic Blood Culture - Preliminary No growth in 3 days Assessment and Plan - Assessment (1) Urinary tract infection Code(s): N39.0 - Urinary tract infection, site not specified Status: Acute Plan: Urine cultures positive for Salmonella. Will discontinue ceftriaxone and begin Bactrim DS orally. (2) Decubitus ulcer of left heel, unstageable Code(s): L89.620 - Pressure ulcer of left heel, unstageable Status: Chronic Plan: Continue localized wound care with alginate and sterile dressing. Continue to offload pressure on heels while in bed.. (3) Closed fracture of pubic ramus Code(s): S32.599A - Other specified fracture of unspecified pubis, initial encounter for closed fracture Status: Acute Plan: Patient has an inferior pubic ramus fracture which is healing. Discomfort under adequate control. Patient's mobility is improving. (4) Iron deficiency anemia Code(s): D50.9 - Iron deficiency anemia, unspecified Status: Chronic Plan: H&H are lower due to volume resuscitation. Will follow. Continue with ferrous sulfate. (5) Chronic kidney disease (CKD), stage III (moderate) Code(s): N18.3 - Chronic kidney disease, stage 3 (moderate) Status: Chronic Plan: Renal function close to baseline. Will follow. (6) Chronic obstructive pulmonary disease (COPD) Code(s): J44.9 - Chronic obstructive pulmonary disease, unspecified Status: Chronic Plan: Respiratory status is close to baseline. Continue to wean prednisone. Continue with nebulizer treatments and inhalers. Wean oxygen as tolerated. Oxygen saturations on 2 L/min per nasal cannula are adequate. (7) Hypothyroidism Code(s): E03.9 - Hypothyroidism, unspecified Status: Chronic Plan: Continue with levothyroxine (8) Peripheral vascular disease Code(s): I73.9 - Peripheral vascular disease, unspecified Status: Chronic Plan: Patient has moderately severe peripheral vascular disease. 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 She has not been stable enough to proceed. She is asymptomatic for any claudication or pain at rest. Continue with aspirin. (9) Insomnia Code(s): G47.00 - Insomnia, unspecified Status: Chronic Plan: She has zolpidem available to use as needed for insomnia. She has not used it for the last 3 nights. 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 CT/PET scan was recommended but needs to be performed on an outpatient basis. Will plan to arrange this as an outpatient when patient is more medically stable. (11) Other spondylosis with radiculopathy, lumbar region Code(s): M47.26 - Other spondylosis with radiculopathy, lumbar region Status: Chronic Plan: Low back pain with radiculopathy is stable. Patient only having mild discomfort at this time. She uses Tylenol as needed. 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 INR remains supratherapeutic. Resume Coumadin when INR within therapeutic range. (13) Paroxysmal atrial fibrillation Code(s): I48.0 - Paroxysmal atrial fibrillation Status: Chronic Plan: The patient has a history of paroxysmal atrial fibrillation. She has been in sinus rhythm. Continue with low-dose sotalol. She is on Coumadin for prophylaxis against embolism. INR supratherapeutic. Coumadin on hold until INR is therapeutic. (14) Delirium due to another medical condition Code(s): F05 - Delirium due to known physiological condition Status: Resolved Plan: Mental status is back to baseline. (15) Hypernatremia Code(s): E87.0 - Hyperosmolality and hypernatremia Status: Resolved Plan: Sodium level is now normal. Discontinue IV fluids as patient is taking oral intake better. Follow sodium level. Dehydration is clinically resolved (16) Acute urinary retention Code(s): R33.8 - Other retention of urine Status: Acute Plan: Patient had acute urinary retention likely from urinary tract infection and long periods of time at bedrest. Will leave Salinas catheter in place for 2-3 days and then discontinue. Reinsert if needed. Patient will likely be discharged to [facility] facility with Salinas catheter. - Plan Discharge Planning: If patient tolerates oral antibiotics and is doing well tomorrow morning, plan to discharge to [facility] facility (1) Urinary tract infection Qualifiers: Urinary tract infection type: acute cystitis Hematuria presence: without hematuria Qualified Code(s): N30.00 - Acute cystitis without hematuria (3) Closed fracture of pubic ramus Qualifiers: Encounter type: subsequent encounter Laterality: unspecified laterality Fracture healing: with routine healing Qualified Code(s): S32.599D - Other specified fracture of unspecified pubis, subsequent encounter for fracture with routine healing (4) Iron deficiency anemia Qualifiers: Iron deficiency anemia type: unspecified iron deficiency (6) Chronic obstructive pulmonary disease (COPD) Qualifiers: COPD type: emphysema Emphysema type: panlobular Qualified Code(s): J43.1 - Panlobular emphysema (7) Hypothyroidism Qualifiers: Hypothyroidism type: unspecified (9) Insomnia Qualifiers: Insomnia type: unspecified Qualified Code(s): G47.00 - Insomnia, unspecified
[2018-04-24] MEDS: Levothyroxine 50 MCG Tablet PO SCH (06:00)
[2018-04-24 07:53] LABS: Baso % (Auto) 0.3 % (0.0-2.0); Eos # (Auto) 0.1 th/mm3 (0.0-0.4); Eos % (Auto) 0.9 % (0.0-4.0); Hemoglobin 9.2 gm/dL (11.6-15.3); Lymph # (Auto) 1.4 th/mm3 (1.0-4.8); Lymph % (Auto) 16.4 % (9.0-44.0); Mean Corpuscular HGB Conc 31.8 % (32.0-36.0); Mean Corpuscular Hemoglobin 30.4 pg (27.0-34.0); Mean Corpuscular Volume 95.4 fL (80.0-100.0); Mean Platelet Volume 8.7 fL (7.0-11.0); Mono # (Auto) 0.6 th/mm3 (0.0-0.9); Mono % (Auto) 7.4 % (0.0-8.0); Neut # (Auto) 6.5 th/mm3 (1.8-7.7); Platelet Count 353 th/mm3 (150-450); Red Blood Count 3.04 mil/mm3 (4.00-5.30); Red Cell Distribution Width 15.9 % (11.6-17.2); White Blood Count 8.6 th/mm3 (4.0-11.0)
[2018-04-24 08:01] LABS: INR 1.8 Ratio; Prothrombin Time 18.7 sec (9.8-11.6)
[2018-04-24 08:04] LABS: Potassium 4.6 meq/L (3.5-5.1)
[2018-04-24 08:07] LABS: Calcium 8.6 mg/dL (8.5-10.1)
[2018-04-24 08:20] LABS: Carbon Dioxide 31.1 meq/L (21.0-32.0)
[2018-04-24] MEDS: Docusate Sodium 100 MG Capsule PO SCH (08:50)
[2018-04-24] MEDS: predniSONE 10 MG Tablet PO SCH (08:50)
[2018-04-24] MEDS: Umeclindinium 62.5 MCG/Vilanterol 25 MCG Inhaler INH SCH (08:52)
[2018-04-24] MEDS: Ferrous Sulfate 325 MG Tablet PO SCH (08:59)
[2018-04-24] MEDS ORDERED: Enoxaparin Inj 40 MG/0.4 ML Syringe SQ SCH (09:00)
--- NOTE | 2018-04-24 09:00 | P.PN ---
Subjective Interval history: The patient had an uneventful night. She is taking p.o. well. Ate most of breakfast this morning. Urine output is good. Bowels are moving. Denies any significant pain. Comfortable with oxygen at 2 L/min per nasal cannula. Mental status is at baseline. Active Medications Generic Name Dose Route Start Last Admin Trade Name Freq PRN Reason Stop Dose Admin Acetaminophen 650 mg 04/20/18 01:43 04/20/18 03:22 Tylenol PO 650 mg Q4H PRN Administration PAIN SCALE 1 TO 3 MILD Hydrocodone Bitart/Acetaminophen 1 tab 04/20/18 19:33 04/22/18 15:55 [place] 5/325 PO 1 tab Q6H PRN Administration PAIN SCALE 6 TO 10 Al Hydroxide/Mg Hydroxide 30 ml 04/20/18 01:43 04/21/18 09:24 Milk Of Magnesia Liq PO 30 ml Q12H PRN Administration Mild Constipation Aspirin 81 mg 04/20/18 09:00 04/24/18 08:50 Aspirin Chew PO 81 mg DAILY DOMINIQUE Administration Docusate Sodium 100 mg 04/20/18 09:00 04/24/18 08:50 Colace PO 100 mg DAILY DOMINIQUE Administration Enoxaparin Sodium 40 mg 04/24/18 09:00 Lovenox Inj SQ DAILY DOMINIQUE Ferrous Sulfate 325 mg 04/20/18 09:00 04/23/18 08:50 Ferosul PO 325 mg DAILY DOMINIQUE Administration Sodium Chloride 1,000 mls @ 0 mls/hr 04/20/18 01:00 Ns Inj IV.SIG BOLUS DOMINIQUE Wide Open Levothyroxine Sodium 50 mcg 04/20/18 07:00 04/24/18 06:00 Synthroid PO 50 mcg DAILY@0700 DOMINIQUE Administration Ondansetron HCl 4 mg 04/20/18 01:43 Zofran Inj IV.PUSH Q6H PRN NAUSEA OR VOMITING Pravastatin Sodium 20 mg 04/20/18 09:00 04/24/18 08:50 Pravachol PO 20 mg DAILY DOMINIQUE Administration Prednisone 10 mg 04/22/18 09:00 04/24/18 08:50 Deltasone PO 10 mg DAILY DOMINIQUE Administration Sotalol HCl 40 mg 04/20/18 09:00 04/24/18 08:50 Betapace PO 40 mg BID DOMINIQUE Administration Trimethoprim/Sulfamethoxazole 1 tab 04/23/18 19:00 04/24/18 08:50 Bactrim Ds PO 1 tab BID DOMINIQUE Administration Umeclidinium/Vilanterol 1 puff 04/20/18 09:00 04/24/18 08:52 Anoro-Ellipta 62.5/25 Mcg Inh INH 1 puff DAILY DOMINIQUE Administration Warfarin Sodium 2.5 mg 04/24/18 16:00 Coumadin PO DAILY@1600 DOMINIQUE Zolpidem Tartrate 5 mg 04/20/18 01:43 04/20/18 20:13 Ambien PO 5 mg HS PRN Administration INSOMNIA Physical Exam Vital signs: Vital Signs 04/23/18 12:00 04/23/18 14:07 04/23/18 16:00 Temperature 96.4 F L 98 F Pulse Rate 66 63 73 Respiratory Rate 20 20 20 Blood Pressure 97/55 L 103/51 L Pulse Oximetry 97 96 04/23/18 19:17 04/23/18 19:22 04/23/18 20:00 Temperature 97 F L Pulse Rate 66 73 Respiratory Rate 18 20 Blood Pressure 116/56 L Pulse Oximetry 97 97 04/24/18 00:00 04/24/18 04:00 04/24/18 07:48 Temperature 97 F L 96.2 F L Pulse Rate 68 68 67 Respiratory Rate 20 20 18 Blood Pressure 108/57 L 142/65 H Pulse Oximetry 98 96 95 04/24/18 08:00 Temperature 98.7 F Pulse Rate 70 Respiratory Rate 20 Blood Pressure 132/63 Pulse Oximetry 98 Intake & Output 04/23/18 04/24/18 04/24/18 18:59 06:59 18:59 Intake Total 960 / 960 120 / 120 240 / 240 Output Total 1450 / 1450 600 / 600 Balance -490 / -490 -480 / -480 240 / 240 Weight 130 lb 11.746 oz Intake: Oral 960 / 960 120 / 120 240 / 240 Output: Urine 600 / 600 Urine Amount (Catheter) 1450 / 1450 Indwelling Urethral Catheter 1450 / 1450 - Constitutional no acute distress - Routine Neck Exam Present: supple Comments: No lymphadenopathy, JVD, bruits or thyromegaly - Routine Respiratory Exam Present: CTA bilaterally Comments: Mild to moderate reduced air exchange - Routine Cardiovascular Exam Present: RRR - Routine Abdominal Exam Present: soft Comments: Nontender, nondistended with bowel sounds present - Routine Extremities Exam Comments: No calf tenderness or Homans sign. Absent distal pulses. Dressing in place on the left heel. No edema. - Routine Neurological Exam Present: alert, oriented X3 - Urinary Catheter Management Indwelling Urethral Catheter Cath placed during this visit: yes Reason for continuing: Acute urinary retention Insertion date: 04/23/18 Insertion time: 07:00 Results - Labs CBC & Chem 7: 04/24/18 06:10 04/24/18 06:10 Laboratory Results - last 24 hr 04/23/18 04/24/18 04/24/18 08:45 06:10 06:10 CBC w Diff Auto diff final WBC 8.6 RBC 3.04 L Hgb 9.2 L Hct 29.0 L MCV 95.4 MCH 30.4 MCHC 31.8 L RDW 15.9 Plt Count 353 MPV 8.7 Neut % (Auto) 75.0 H Lymph % (Auto) 16.4 [place] % (Auto) 7.4 Eos % (Auto) 0.9 Baso % (Auto) 0.3 Neut # (Auto) 6.5 Lymph # (Auto) 1.4 [place] # (Auto) 0.6 Eos # (Auto) 0.1 Baso # (Auto) 0.0 WBC Differential . Differential Comment . PT 18.7 H D INR 1.8 Sodium 138 Potassium 4.1 Chloride 102 Carbon Dioxide 31.7 Anion Gap 4 L BUN 48 H Creatinine 1.40 H Estimated GFR 36 L Random Glucose 85 Calcium 8.2 L 04/24/18 06:10 CBC w Diff WBC RBC Hgb Hct MCV MCH MCHC RDW Plt Count MPV Neut % (Auto) Lymph % (Auto) [place] % (Auto) Eos % (Auto) Baso % (Auto) Neut # (Auto) Lymph # (Auto) [place] # (Auto) Eos # (Auto) Baso # (Auto) WBC Differential Differential Comment PT INR Sodium 138 Potassium 4.6 Chloride 103 Carbon Dioxide 31.1 Anion Gap 4 L BUN 36 H Creatinine 1.10 H Estimated GFR 47 L Random Glucose 72 L Calcium 8.6 Microbiology 04/20/18 00:10 Blood - Peripheral Aerobic Blood Culture - Preliminary No growth in 3 days 04/20/18 00:10 Blood - Peripheral Anaerobic Blood Culture - Preliminary No growth in 3 days 04/20/18 00:05 Blood - Peripheral Aerobic Blood Culture - Preliminary No growth in 3 days 04/20/18 00:05 Blood - Peripheral Anaerobic Blood Culture - Preliminary No growth in 3 days Assessment and Plan - Assessment (1) Urinary tract infection Code(s): N39.0 - Urinary tract infection, site not specified Status: Acute Plan: Urine cultures positive for Salmonella. Patient will complete course of Bactrim p.o. (2) Decubitus ulcer of left heel, unstageable Code(s): L89.620 - Pressure ulcer of left heel, unstageable Status: Chronic Plan: Continue localized wound care with alginate and sterile dressing. Continue to offload pressure on heels while in bed. Patient will be evaluated by info specialist at [facility] (3) Closed fracture of pubic ramus Code(s): S32.599A - Other specified fracture of unspecified pubis, initial encounter for closed fracture Status: Acute Plan: Patient has an inferior pubic ramus fracture which is healing. Discomfort under adequate control. Patient's mobility is improving. She will resume PT and OT at [facility] (4) Iron deficiency anemia Code(s): D50.9 - Iron deficiency anemia, unspecified Status: Chronic Plan: H&H are stable. Will follow. Continue with ferrous sulfate. (5) Chronic kidney disease (CKD), stage III (moderate) Code(s): N18.3 - Chronic kidney disease, stage 3 (moderate) Status: Chronic Plan: Renal function close to baseline. Will follow. (6) Chronic obstructive pulmonary disease (COPD) Code(s): J44.9 - Chronic obstructive pulmonary disease, unspecified Status: Chronic Plan: Respiratory status is close to baseline. Continue to wean prednisone. Continue with nebulizer treatments and inhalers. Wean oxygen as tolerated. Oxygen saturations on 2 L/min per nasal cannula are adequate. (7) Hypothyroidism Code(s): E03.9 - Hypothyroidism, unspecified Status: Chronic Plan: Continue with levothyroxine (8) Peripheral vascular disease Code(s): I73.9 - Peripheral vascular disease, unspecified Status: Chronic Plan: Patient has moderately severe peripheral vascular disease. 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 She has not been stable enough to proceed. She is asymptomatic for any claudication or pain at rest. Continue with aspirin. (9) Insomnia Code(s): G47.00 - Insomnia, unspecified Status: Chronic Plan: She has zolpidem available to use as needed for insomnia. 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 CT/PET scan was recommended but needs to be performed on an outpatient basis. Will plan to arrange this as an outpatient when patient is more medically stable. (11) Other spondylosis with radiculopathy, lumbar region Code(s): M47.26 - Other spondylosis with radiculopathy, lumbar region Status: Chronic Plan: Low back pain with radiculopathy is stable. Patient only having mild discomfort at this time. She uses Tylenol as needed. 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 INR is subtherapeutic. Resume Coumadin and cover with Lovenox until INR >1.9 (13) Paroxysmal atrial fibrillation Code(s): I48.0 - Paroxysmal atrial fibrillation Status: Chronic Plan: The patient has a history of paroxysmal atrial fibrillation. She has been in sinus rhythm. Continue with low-dose sotalol. She is on Coumadin for prophylaxis against embolism. Will resume Coumadin today. INR is subtherapeutic. Continue with Lovenox until INR >1.9 (14) Delirium due to another medical condition Code(s): F05 - Delirium due to known physiological condition Status: Resolved Plan: Mental status is back to baseline. (15) Hypernatremia Code(s): E87.0 - Hyperosmolality and hypernatremia Status: Resolved Plan: Sodium level is now normal. Discontinue IV fluids as patient is taking oral intake better. Follow sodium level. Dehydration is clinically resolved (16) Acute urinary retention Code(s): R33.8 - Other retention of urine Status: Acute Plan: Will remove [place] catheter this morning. If patient unable to void in 4-5 hours will replace [place] catheter and [facility] to [facility] with [place] [facility] with plan to attempt to remove Sal[place] catheter in 2- 3 days. - Plan Discharge Planning: Will discharge to [facility] later today (1) Urinary tract infection Qualifiers: Urinary tract infection type: acute cystitis Hematuria presence: without hematuria Qualified Code(s): N30.00 - Acute cystitis without hematuria (3) Closed fracture of pubic ramus Qualifiers: Encounter type: subsequent encounter Laterality: unspecified laterality Fracture healing: with routine healing Qualified Code(s): S32.599D - Other specified fracture of unspecified pubis, subsequent encounter for fracture with routine healing (4) Iron deficiency anemia Qualifiers: Iron deficiency anemia type: unspecified iron deficiency (6) Chronic obstructive pulmonary disease (COPD) Qualifiers: COPD type: emphysema Emphysema type: panlobular Qualified Code(s): J43.1 - Panlobular emphysema (7) Hypothyroidism Qualifiers: Hypothyroidism type: unspecified (9) Insomnia Qualifiers: Insomnia type: unspecified Qualified Code(s): G47.00 - Insomnia, unspecified
--- NOTE | 2018-04-24 09:24 | P.DS ---
Date of admission: 04/20/18 01:37 Primary care physician: Boo Morrissey MD Attending physician on discharge: Boo Morrissey Anticipated date of discharge: 04/24/18 Brief History from admission: This 82-year-old white female was residing in a [facility] following a inferior pubic ramus fracture. The patient developed increasing confusion, generalized weakness, poor oral intake and shortness of breath with hypoxemia. She was transferred to this facility for further evaluation and treatment. In the emergency department she was found to have hypernatremic dehydration with prerenal azotemia and urinalysis suspicious for urinary tract infection. She was also found to have Coumadin toxicity. The patient would be admitted to medical surgical bed with telemetry for further evaluation and treatment. Patient update on day of discharge: The patient is much improved. Mental status at baseline. Respiratory status is stable. She is eating and drinking well. Bowels are moving. She had acute urinary retention and a Salinas catheter is in place. Urine output is good. Salinas will be removed prior to discharge and if patient able to void spontaneously then will remain without Salinas catheter. If unable to void spontaneously, Salinas will be replaced prior to discharge. Attempt to remove will be made again at [facility] facility. renal function and electrolytes are back to baseline. INR is subtherapeutic. Coumadin has been resumed and patient will remain on Lovenox until INR >1.9. DS: Diagnosis - Discharge Diagnosis (1) Urinary tract infection Status: Acute Diagnosis: Principal (2) Decubitus ulcer of left heel, unstageable Status: Chronic Diagnosis: Secondary (3) Closed fracture of pubic ramus Status: Chronic Diagnosis: Secondary (4) Iron deficiency anemia Status: Chronic Diagnosis: Secondary (5) Chronic kidney disease (CKD), stage III (moderate) Status: Chronic Diagnosis: Secondary (6) Chronic obstructive pulmonary disease (COPD) Status: Chronic Diagnosis: Secondary (7) Hypothyroidism Status: Chronic (8) Peripheral vascular disease Status: Chronic Diagnosis: Secondary (9) Insomnia Status: Chronic Diagnosis: Secondary (10) Neoplasm of uncertain behavior of lung Status: Chronic Diagnosis: Secondary (11) Other spondylosis with radiculopathy, lumbar region Status: Chronic Diagnosis: Secondary (12) Primary thrombophilia Status: Chronic Diagnosis: Secondary (13) Paroxysmal atrial fibrillation Status: Chronic Diagnosis: Secondary (14) Delirium due to another medical condition Status: Resolved Diagnosis: Secondary (15) Hypernatremia Status: Resolved Diagnosis: Secondary (16) Acute urinary retention Status: Acute Diagnosis: Secondary DS: Medications - Discharge Medications Prescriptions: hydrocodone-acetaminophen 1 tab PO Q4H PRN #90 tab PRN Reason: Pain zolpidem [Ambien] 1 tab PO HS PRN #30 tab PRN Reason: Insomnia DS: Summary Hospital Course: The patient was admitted to medical surgical bed with telemetry and placed on IV fluids. She was initiated on IV antibiotic therapy with ceftriaxone. Her sodium level did not initially decrease with normal saline, therefore, IV fluids were changed to half normal saline. Sodium level did return to normal. IV fluids were discontinued. The patient's renal function returned to normal with volume resuscitation. Urine output remained good. She did develop acute urinary retention during the hospitalization and a Salinas catheter was placed. An attempt to remove Salinas catheter was made prior to discharge. If patient unable to spontaneously void, the catheter will be replaced and attempt to wean patient from catheter will be made again at [facility] The patient has a history of primary thrombophilia with pulmonary emboli and DVTs. She has been on chronic anticoagulation therapy with Coumadin. The patient's INR was supratherapeutic at the time of admission. Coumadin was held. On the day of discharge her INR was subtherapeutic. She was placed on Lovenox subcutaneously and Coumadin was resumed. She would have an INR performed weekly at the [facility] and when the INR was >1.9 the Lovenox will be discontinued. Patient's urine culture revealed Salmonella. She had a previous history of Salmonella urinary tract infection. The patient was transitioned from ceftriaxone to Bactrim DS. The organism is sensitive to this antibiotic. The patient will complete 10 days of oral antibiotics and a repeat urinalysis with culture and sensitivity will be performed at that time. Pending the results will decide on further treatment for the urinary tract infection. The patient has a history of iron deficiency anemia. H&H did decrease during the hospitalization due to volume resuscitation. This was not unanticipated. The patient's H&H was stable to time of discharge and she would continue with ferrous sulfate. CBC will be monitored weekly at the [facility]. Patient has a history of the patient has a history of paroxysmal atrial fibrillation. She continues to receive sotalol. She remained in sinus rhythm during the hospitalization. She will continue with anticoagulation as above. The patient has a history of COPD. She is oxygen dependent at 2 L/min per nasal cannula. At the time of admission her oxygen requirement was 4 L/min per nasal cannula but it did improve throughout the hospitalization. She will continue with nebulizer treatments. Her prednisone dosage was decreased to 10 mg daily and weaning would continue at the [facility] facility. She will continue with her Anoro. The patient recently sustained a fall which caused an inferior pubic ramus fracture. Her pain is much better but still present with mobility. She has a prescription for hydrocodone to receive as needed. She has a history of chronic insomnia. She has an order for zolpidem 5 mg at bedtime as needed. She used it intermittently during the hospitalization. Her acute delirium present during the hospitalization resolved and her mental status was back to baseline at the time of discharge. The day of discharge, she was eating well, mental status was at baseline and respiratory status was stable. The patient was having bowel movements. She denied any significant pain. It was felt she had obtained maximum benefit from the hospitalization. She will be [facility] to a [facility] for [facility]. The undersigned physician will see the patient at the facility in 2-3 days after discharge. Her discharge orders are included in this record and were listed on the form 3008. Discharge medications are listed on the medication reconciliation sheet. - Time Spent with Patient Total time spent providing and/or coordinating discharge services: Less than 30 minutes - Quality: VTE Deep Vein Thrombosis/Pulmonary Embolism Present on Admission: Yes Exam Vital signs: Vital Signs 04/23/18 12:00 04/23/18 14:07 04/23/18 16:00 Temperature 96.4 F L 98 F Pulse Rate 66 63 73 Respiratory Rate 20 20 20 Blood Pressure 97/55 L 103/51 L Pulse Oximetry 97 96 04/23/18 19:17 04/23/18 19:22 04/23/18 20:00 Temperature 97 F L Pulse Rate 66 73 Respiratory Rate 18 20 Blood Pressure 116/56 L Pulse Oximetry 97 97 04/24/18 00:00 04/24/18 04:00 04/24/18 07:48 Temperature 97 F L 96.2 F L Pulse Rate 68 68 67 Respiratory Rate 20 20 18 Blood Pressure 108/57 L 142/65 H Pulse Oximetry 98 96 95 04/24/18 08:00 Temperature 98.7 F Pulse Rate 70 Respiratory Rate 20 Blood Pressure 132/63 Pulse Oximetry 98 Intake & Output 04/23/18 04/24/18 04/24/18 18:59 06:59 18:59 Intake Total 960 / 960 120 / 120 240 / 240 Output Total 1450 / 1450 600 / 600 Balance -490 / -490 -480 / -480 240 / 240 Weight 130 lb 11.746 oz Intake: Oral 960 / 960 120 / 120 240 / 240 Output: Urine 600 / 600 Urine Amount (Catheter) 1450 / 1450 Indwelling Urethral Catheter 1450 / 1450 Results Procedures completed during hospitalization: None Labs on day of discharge: Labs from last 24 hours 04/24/18 04/24/18 04/24/18 06:10 06:10 06:10 CBC w Diff Auto diff final WBC 8.6 RBC 3.04 L Hgb 9.2 L Hct 29.0 L MCV 95.4 MCH 30.4 MCHC 31.8 L RDW 15.9 Plt Count 353 MPV 8.7 Neut % (Auto) 75.0 H Lymph % (Auto) 16.4 [place] % (Auto) 7.4 Eos % (Auto) 0.9 Baso % (Auto) 0.3 Neut # (Auto) 6.5 Lymph # (Auto) 1.4 [place] # (Auto) 0.6 Eos # (Auto) 0.1 Baso # (Auto) 0.0 WBC Differential . Differential Comment . PT 18.7 H D INR 1.8 Sodium 138 Potassium 4.6 Chloride 103 Carbon Dioxide 31.1 Anion Gap 4 L BUN 36 H Creatinine 1.10 H Estimated GFR 47 L Random Glucose 72 L Calcium 8.6 04/23/18 08:45 CBC w Diff WBC RBC Hgb Hct MCV MCH MCHC RDW Plt Count MPV Neut % (Auto) Lymph % (Auto) [place] % (Auto) Eos % (Auto) Baso % (Auto) Neut # (Auto) Lymph # (Auto) [place] # (Auto) Eos # (Auto) Baso # (Auto) WBC Differential Differential Comment PT INR Sodium 138 Potassium 4.1 Chloride 102 Carbon Dioxide 31.7 Anion Gap 4 L BUN 48 H Creatinine 1.40 H Estimated GFR 36 L Random Glucose 85 Calcium 8.2 L Preliminary micro results at discharge 04/20/18 00:10 Aerobic Blood Culture - Preliminary Blood - Peripheral No growth in 3 days Anaerobic Blood Culture - Preliminary No growth in 3 days 04/20/18 00:05 Aerobic Blood Culture - Preliminary Blood - Peripheral No growth in 3 days Anaerobic Blood Culture - Preliminary No growth in 3 days - Impressions ITS Impressions Chest X-Ray 04/19/18 23:54 CONCLUSION: No acute cardiopulmonary process. Head CT 04/20/18 00:00 CONCLUSION: 1. No acute intracranial abnormality. 2. Atrophy. 3. Periventricular demyelination. This is nonspecific. It could be from small vessel ischemic change. 4. Right sphenoid sinus disease. . Discharge Plan - Discharge Disposition Patient Disposition: Discharge to SNF - Discharge Condition Condition: Stable - Discharge Order Discharge Orders: Discharge Order (Routine); Ordered 04/24/18 Ordered By: Boo Morrissey - Discharge Details Anticipated Discharge Date: 04/24/18 - Physicians Team Primary Care Provider: Boo Morrissey Attending Provider: Boo Morrissey [facility]
[2018-04-24 16:51] VITALS: BP 130/60; PULSE 88; RESP 19; TEMP 98.7; O2SAT 96
== END 2018-04-24 17:10 ==
LOC: NEPE 23:27 → NEDA 04-20 01:37 → NEDH 04-20 04:55 → PH3 04-20 09:16
PROVIDERS: ADMIT Family Medicine; ATTEND Family Medicine

== ENCOUNTER 2018-05-10 19:08 | Inpatient (IN) ==
--- NOTE | 2018-05-10 19:56 | ED ---
HPI General Chief complaint: Altered Mental Status Stated complaint: Poss AMS Time Seen by Provider: 05/10/18 19:45 Source: patient and old records reviewed Mode of arrival: EMS Limitations: no limitations History of Present Illness HPI narrative: The patient is an 82 year old female who presents to the [facility] emergency department with a history of reportedly falling twice earlier today. The patient was sent in by a local alf for evaluation and treatment. According to the nurse, the patient also has altered mentation. The patient is oriented to person, time, however not place. The patient reports that she has left hip pain since the fall. She denies having any headache, neck pain, or known loss of consciousness. She denies having any chest pain or chest pressure at this time. She denies having any shortness of breath. The patient is cooperative with neurologic examination and is moving all extremities equally. The patient was brought in by med 1. The patient according to the record is anticoagulated on Coumadin. Related Data Home Medications Medication Instructions Recorded Confirmed docusate sodium 100 mg PO DAILY 04/01/18 04/20/18 Previous Rx's Medication Instructions Recorded Ensure 1 bottle PO TID #0 04/08/18 aspirin 81 mg PO DAILY #30 tab 04/08/18 cholecalciferol (vitamin D3) 1,000 unit PO DAILY #30 cap 04/08/18 [Vitamin D3] ferrous sulfate [FeroSul] 325 mg PO DAILY #30 tab 04/08/18 ipratropium-albuterol 3 ml INHALATION TID #270 ml 04/08/18 levothyroxine 50 mcg PO DAILY #30 tab 04/08/18 magnesium hydroxide [Milk of 30 ml PO Q12H PRN ml 04/08/18 Magnesia] pravastatin 20 mg PO DAILY #30 tab 04/08/18 sotalol 40 mg PO BID #60 tab 04/08/18 umeclidinium-vilanterol [Anoro 1 puff INH DAILY #1 ea 04/08/18 Ellipta] vit C,A-Ww-wbjao-lutein-zeaxan 1 tab PO BID #30 cap 04/08/18 [PreserVision AREDS-2] acetaminophen 650 mg PO Q4H PRN tab 04/24/18 enoxaparin [Lovenox] 40 mg SUBCUT DAILY ml 04/24/18 hydrocodone-acetaminophen 1 tab PO Q4H PRN #90 tab 04/24/18 hydrocodone-acetaminophen 1 tab PO Q6H PRN tab 04/24/18 prednisone 10 mg PO DAILY tab 04/24/18 warfarin [Coumadin] 2.5 mg PO DAILY@1600 tab 04/24/18 zolpidem 5 mg PO HS PRN tab 04/24/18 zolpidem [Ambien] 1 tab PO HS PRN #30 tab 04/24/18 Allergies Allergy/AdvReac Type Severity Reaction Status Date / Time doxycycline Allergy Severe Hives Verified 04/01/18 15:21 gabapentin Allergy Severe Hives Verified 04/01/18 15:21 pregabalin Allergy Severe Hives Verified 04/01/18 15:21 orange AdvReac Intermediate Diarrhea Verified 04/01/18 15:21 Review of Systems ROS Unobtainable ROS Unobtainable: unobtainable due to mental status PMFSH History History Provided By: Patient and Medical Record Medical History Medical History Abdominal aneurysm (Acute) Afib (Acute) Aortic stenosis (Acute) Breast cancer (Acute) CHF (congestive heart failure) (Acute) COPD (chronic obstructive pulmonary disease) (Acute) Carotid artery stenosis (Acute) Diverticulosis (Acute) Femur fracture, left (Acute) Fibromyalgia (Acute) H/O: hysterectomy (Acute) History of DVT of lower extremity (Acute) Neuropathy (Acute) Osteoarthritis (Acute) PVD (peripheral vascular disease) (Acute) Spinal stenosis (Acute) Urothelial cancer (Acute) Surgical History Surgical History H/O laminectomy (Acute) H/O lumpectomy (Acute) History of appendectomy (Acute) History of back surgery (Acute) History of hip replacement (Acute) Hx of cardiac cath (Acute) S/P AVR (aortic valve replacement) (Acute) S/P IVC filter (Acute) Social History Social History Substance History: No History of Abuse Second Hand Smoke Exposure: No Smoking Status: Never smoker Tobacco Type: Cigarettes How Often Do You Have a Drink Containing Alcohol: Never Recent Travel in [facility] within the Last 8 Weeks: No Recent Out of Country Travel within the Last 8 Weeks: No Exam Const General: cooperative and no acute distress Nutritional Appearance: well nourished Orientation: alert, awake, oriented to person, not oriented to place and oriented to time [facility] Head: normocephalic and atraumatic Nose: no nasal discharge and no epistaxis Mouth: moist mucous membranes Eyes Sclera: normal sclerae Pupils: PERRL Neck Neck: trachea midline and no JVD Resp Effort & Inspection: no use of accessory muscles Auscultation: clear to auscultation bilaterally Cardio Rate: regular rate Rhythm: regular rhythm Heart Sounds: no murmurs GI Inspection: non-distended Palpation: soft, no hepatosplenomegaly and nontender Skin General: dry skin (warm) Neuro General: alert, awake and oriented (The patient is oriented to person, time, however not place.) Cranial Nerves: CN's II-XI intact bilaterally and other Speech: speech normal Motor: strength 5/5 throughout and no movement abnormalities noted Sensory Exam: no sensory deficits noted Extrem General: normal to inspection (2+ pulses all 4 extremities.), no calf tenderness , no clubbing, no cyanosis and edema (Trace pedal edema bilateral lower extremities.) Laterality: bilaterally Right upper extremity: normal to inspection and full ROM Left upper extremity: normal to inspection and full ROM Right lower extremity: normal to inspection and full ROM Left lower extremity: hip/thigh (Has shortening of the left hip withThe patient reports that she has pain in the left hip. The patient no rotation internally or externally noted on exam. The patient does have some pain in the groin on the left side with flexion at the hip. Patient has no knee pain, ankle pain, or foot pain. ) Psych Mood: congruent mood Affect: normal affect Judgment: judgment good Course Initial Documented Vital Signs Temperature 100.8 F H 05/10/18 19:45 Pulse Rate 66 05/10/18 19:45 Blood Pressure 131/53 L 05/10/18 19:45 Pulse Oximetry 96 05/10/18 19:45 Last Documented Vital Signs Temperature 99.2 F 05/11/18 12:00 Pulse Rate 63 05/11/18 12:00 Respiratory Rate 16 05/11/18 12:30 Blood Pressure 89/44 L 05/11/18 12:00 Pulse Oximetry 98 05/11/18 12:00 Medical Decision Making MDM Narrative Medical decision making narrative: During the course of the patient's emergency department visit, the patient's history, examination, and differential diagnosis were reviewed with the patient. The patient was placed on a personnel monitor with oximetry and frequent blood pressure monitoring. The patient had IV access obtained and blood work sent for analysis. Diagnostic evaluation was started regarding the patient's altered mentation and falls. The patient was initially provided morphine for pain, Zofran for nausea, maintenance IV fluids. The patient's diagnostic studies are remarkable for white count of 10.8, hemoglobin 8.2 which is stable compared to her last hemoglobin of 8.1, platelets 205, neutrophil predominance at 91.1, PTT 23.8, INR 2.4, chemistry is remarkable for a sodium of 131, BUN 51, creatinine 2.73 which is slightly increased compared to her last renal function studies at this facility, glucose 115, albumin 2.5, lipase within normal limits, BNP 1776, ammonia level less than 10. Urinalysis showed signs of a urinary tract infection. The patient was given antibiotics IV. The patient had a chest x-ray done that showed a suspected developing infiltrate within the lingula. Azithromycin was added onto her antibiotic coverage. A pelvis and hip x-ray revealed fractures of the right superior and inferior pubic ramus, most likely to the right sacrum proximal left femur. Pelvis CT without vomiting patient's workup for further determination of extent the fractures. The patient's pelvis CT revealed moderate to severe osteopenia with multiple subacute appearing healing fractures this includes fractures of both pubic rami of the anterior left acetabulum and left sacral insufficiency fractures. No definite acute fracture of the femur or left hip. The patient's case including history, pertinent physical examination findings, and laboratory studies were discussed with Dr. Morrissey. It was agreed that the patient would be admitted to Dr. Morrissey's Service. The patient's results were discussed with the patient, including the plan of care. I explained that further testing and/ or monitoring is indicated based on the patient's history, examination, and/ or laboratory findings. Therefore, I recommended admission for additional evaluation. The patient expressed understanding and was agreeable with this plan. The patient was admitted to the hospital in stable condition and sent to a bed under the care of Dr. Morrissey. Medical Screen Exam Complete: Yes Emergency Medical Condition: Yes Differential Diagnosis Differential Diagnosis: hip fracture, versus pelvis fracture, with altered mentation related to urinary tract infection, versus other infectious process Medical Records Medical records reviewed: Yes I reviewed the patient's medical records. Lab Data Lab results reviewed: Yes I reviewed the patient's lab results. Result diagrams: 05/10/18 20:05 05/10/18 20:05 Lab Results 05/10/18 05/10/18 05/10/18 Range/Units 20:05 20:05 20:05 WBC 10.8 (4.0-11.0) th/mm3 RBC 2.59 L (4.00-5.30) mil/mm3 Hgb 8.2 L (11.6-15.3) gm/dL Hct 24.7 L (35.0-46.0) % MCV 95.6 (80.0-100.0) fL MCH 31.7 (27.0-34.0) pg MCHC 33.2 (32.0-36.0) % RDW 17.4 H (11.6-17.2) % Plt Count 305 (150-450) th/mm3 MPV 7.7 (7.0-11.0) fL Neut % (Auto) 91.4 H (16.0-70.0) % Lymph % (Auto) 2.6 L (9.0-44.0) % Bourbon % (Auto) 5.8 (0.0-8.0) % Eos % (Auto) 0.0 (0.0-4.0) % Baso % (Auto) 0.2 (0.0-2.0) % Neut # (Auto) 9.9 H (1.8-7.7) th/mm3 Lymph # (Auto) 0.3 L (1.0-4.8) th/mm3 Bourbon # (Auto) 0.6 (0.0-0.9) th/mm3 Eos # (Auto) 0.0 (0.0-0.4) th/mm3 Baso # (Auto) 0.0 (0.0-0.2) th/mm3 WBC Differential . Differential Comment Auto diff final PT (9.8-11.6) sec INR Ratio APTT (23.4-31.7) sec Sodium 134 L (136-145) meq/L Potassium 5.1 (3.5-5.1) meq/L Chloride 103 (98-107) meq/L Carbon Dioxide 22.0 (21.0-32.0) meq/L Anion Gap 9 (5-15) meq/L BUN 51 H (7-18) mg/dL Creatinine 2.73 H (0.50-1.00) mg/dL Estimated GFR 17 L (>89) mL/min Random Glucose 115 H (74-106) mg/dL Calcium 8.5 (8.5-10.1) mg/dL Total Bilirubin 0.3 (0.2-1.0) mg/dL AST 21 (15-37) U/L ALT 15 (10-53) U/L Alkaline Phosphatase 75 (45-117) U/L Ammonia Less than 10 L (11-32) mcmol/L Total Creatine Kinase 51 (26-192) U/L Troponin I 0.03 (0.02-0.05) ng/mL B-Natriuretic Peptide (0-100) pg/mL Total Protein 6.7 (6.4-8.2) g/dL Albumin 2.5 L (3.4-5.0) g/dL Lipase 55 L (73-393) U/L Urine Color (Yellw/Straw) Urine Clarity (Clear) Urine pH (5.0-8.5) Ur Specific Downing (1.002-1.035) Urine Protein (Neg-Trace) mg/dL Urine Glucose (UA) (Negative) mg/dL Urine Ketones (Negative) mg/dL Urine Occult Blood (Negative) Urine Nitrate (Negative) Urine Bilirubin (Negative) Urine Urobilinogen (Less than 2) mg/dL Ur Leukocyte Esterase (Negative) Urine RBC (0-3) /hpf Urine WBC (0-5) /hpf Urine WBC Clumps (None) Ur Squamous Epith Cells (0-5) /hpf Amorphous Sediment (None) /hpf Urine Bacteria (None) /hpf Micro UA Comment Ur Microscopic Review Urine Culture Comments 05/10/18 05/10/18 05/10/18 Range/Units 20:05 20:05 20:30 WBC (4.0-11.0) th/mm3 RBC (4.00-5.30) mil/mm3 Hgb (11.6-15.3) gm/dL Hct (35.0-46.0) % MCV (80.0-100.0) fL MCH (27.0-34.0) pg MCHC (32.0-36.0) % RDW (11.6-17.2) % Plt Count (150-450) th/mm3 MPV (7.0-11.0) fL Neut % (Auto) (16.0-70.0) % Lymph % (Auto) (9.0-44.0) % Bourbon % (Auto) (0.0-8.0) % Eos % (Auto) (0.0-4.0) % Baso % (Auto) (0.0-2.0) % Neut # (Auto) (1.8-7.7) th/mm3 Lymph # (Auto) (1.0-4.8) th/mm3 Bourbon # (Auto) (0.0-0.9) th/mm3 Eos # (Auto) (0.0-0.4) th/mm3 Baso # (Auto) (0.0-0.2) th/mm3 WBC Differential Differential Comment PT 23.8 H (9.8-11.6) sec INR 2.4 Ratio APTT 34.0 H (23.4-31.7) sec Sodium (136-145) meq/L Potassium (3.5-5.1) meq/L Chloride (98-107) meq/L Carbon Dioxide (21.0-32.0) meq/L Anion Gap (5-15) meq/L BUN (7-18) mg/dL Creatinine (0.50-1.00) mg/dL Estimated GFR (>89) mL/min Random Glucose (74-106) mg/dL Calcium (8.5-10.1) mg/dL Total Bilirubin (0.2-1.0) mg/dL AST (15-37) U/L ALT (10-53) U/L Alkaline Phosphatase (45-117) U/L Ammonia (11-32) mcmol/L Total Creatine Kinase (26-192) U/L Troponin I (0.02-0.05) ng/mL B-Natriuretic Peptide 1276 H (0-100) pg/mL Total Protein (6.4-8.2) g/dL Albumin (3.4-5.0) g/dL Lipase (73-393) U/L Urine Color Yellow (Yellw/Straw) Urine Clarity Turbid H (Clear) Urine pH 6.0 (5.0-8.5) Ur Specific Downing 1.014 (1.002-1.035) Urine Protein 30 H (Neg-Trace) mg/dL Urine Glucose (UA) Negative (Negative) mg/dL Urine Ketones Negative (Negative) mg/dL Urine Occult Blood Negative (Negative) Urine Nitrate Negative (Negative) Urine Bilirubin Negative (Negative) Urine Urobilinogen Less than 2 (Less than 2) mg/dL Ur Leukocyte Esterase Large H (Negative) Urine RBC 7 H (0-3) /hpf Urine WBC (0-5) /hpf Urine WBC Clumps Many H (None) Ur Squamous Epith Cells 3 (0-5) /hpf Amorphous Sediment Rare H (None) /hpf Urine Bacteria Many H (None) /hpf Micro UA Comment Culture indicated Ur Microscopic Review Not Reportable Urine Culture Comments Culture indicated Imaging Data Radiologist's impression: Pelvis CT 05/10/18 00:00 CONCLUSION: 1. Moderate to severe osteopenia with multiple subacute appearing healing fractures. This includes fractures of both pubic rami, the anterior left acetabulum and left sacral insufficiency fractures. 2. Postoperative changes in the left hip with old fracture deformity. There is no definite acute fracture in this region. 3. Post surgical changes in the lower lumbar spine. Chest X-Ray 05/10/18 19:45 CONCLUSION: Suspected developing infiltrate within the lingula. Chronic interstitial changes. Hip X-Ray 05/10/18 19:45 CONCLUSION: Fractures of the right superior pubic ramus, left inferior pubic ramus, initial tuberosity. Possible fractures of the right sacrum and proximal lateral shaft of the femur. ECG Data Attestation: I personally reviewed and interpreted this ECG as follows: Interpretation: The patient had a EKG done on arrival that shows a heart rate of 80, sinus rhythm with a sinus arrhythmia, QRS duration 137 ms, QTC 474 ms. Right bundle branch block is noted, left anterior fascicular block is noted. Discharge Plan Discharge Disposition Patient Disposition: 30 Still Patient Discharge Condition Condition: Serious Discharge Order Discharge Orders: Discharge Order (Routine); Ordered 05/11/18 Ordered By: Boo Morrissey Orthopedic Clear for Discharge (Routine); Ordered 05/11/18 Ordered By: Eliseo Troncoso Discharge Details Anticipated Discharge Date: 05/11/18 Discharge Comment: Discharge to [facility] Diagnosis: Multiple fractures of pelvis, UTI (urinary tract infection), Infiltrate of left lung present on chest x-ray Physicians Team ED Provider: Carolyn Banuelos Primary Care Provider: Boo Morrissey Attending Provider: Boo Morrissey Other Providers: Philip Thomas ; Alexandre Mata ; Malcolm Mckinney Discharge Interventions Interventions: ED Discharge Assessment Last Done: 05/11/18 01:07 Status ED Status: Left Department Discharge Information Discharge Date/Time: 05/11/18 19:05
[2018-05-10 20:36] LABS: Baso % (Auto) 0.2 % (0.0-2.0); Hematocrit 24.7 % (35.0-46.0); Hemoglobin 8.2 gm/dL (11.6-15.3); Lymph # (Auto) 0.3 th/mm3 (1.0-4.8); Lymph % (Auto) 2.6 % (9.0-44.0); Mean Corpuscular HGB Conc 33.2 % (32.0-36.0); Mean Corpuscular Hemoglobin 31.7 pg (27.0-34.0); Mean Corpuscular Volume 95.6 fL (80.0-100.0); Mean Platelet Volume 7.7 fL (7.0-11.0); Mono # (Auto) 0.6 th/mm3 (0.0-0.9); Mono % (Auto) 5.8 % (0.0-8.0); Neut # (Auto) 9.9 th/mm3 (1.8-7.7); Neut % (Auto) 91.4 % (16.0-70.0); Platelet Count 305 th/mm3 (150-450); Red Blood Count 2.59 mil/mm3 (4.00-5.30); Red Cell Distribution Width 17.4 % (11.6-17.2); White Blood Count 10.8 th/mm3 (4.0-11.0)
[2018-05-10 20:48] LABS: INR 2.4 Ratio; Prothrombin Time 23.8 sec (9.8-11.6)
--- NOTE | 2018-05-10 20:59 | XR ---
EXAM DATE: 05/10/2018 8:54 PM EST AGE/SEX: 82 years / Female INDICATIONS: AMS. Daughter states multiple falls and declining mental status. CLINICAL DATA: This is the patient's initial encounter. Patient reports that signs and symptoms have been present for 3 days and indicates a pain score of Nonresponsive. MEDICAL/SURGICAL HISTORY: . Chronic obstructive pulmonary disease. Carcinoma, breast. Chronic o bstructive pulmonary disease. Carcinoma, breast . Mastectomy, bilateral. COMPARISON: [facility] [place], CHEST 1V SINGLE AP, 04/19/2018. . FINDINGS: A single AP view of the chest demonstrates a normal cardiac silhouette. Stent-mounted aortic valve is observed. Chronic interstitial changes within the lungs. A new focal opacity within the lingula. Deg enerative spine. Surgical clips within the right axilla. CONCLUSION: Suspected developing infiltrate within the lingula. Chronic interstitial changes. Electronically signed by: Josias Beaver MD 05/10/2018 8:58 PM EST
[2018-05-10 21:00] LABS: Albumin 2.5 g/dL (3.4-5.0); Anion Gap 9 meq/L (5-15); Aspartate Aminotransferase 21 U/L (15-37); Blood Urea Nitrogen 51 mg/dL (7-18); Calcium 8.5 mg/dL (8.5-10.1); Chloride 103 meq/L (98-107); Glomerular Filtration Rate 17 mL/min (>89); Glucose,Random 115 mg/dL (74-106); Lipase 55 U/L (73-393); Potassium 5.1 meq/L (3.5-5.1); Sodium 134 meq/L (136-145)
[2018-05-10 21:04] LABS: Alanine Aminotransferase 15 U/L (10-53)
--- NOTE | 2018-05-10 21:06 | XR ---
EXAM DATE: 05/10/2018 8:59 PM EST AGE/SEX: 82 years / Female INDICATIONS: Pain. AMS. Daughter states multiple falls and declining mental status. CLINICAL DATA: This is the patient's initial encounter. Patient reports that signs and symptoms have been present for 3 days and indicates a pain score of Nonresponsive. MEDICAL/SURGICAL HISTORY: . Chronic obstructive pulmonary disease. Carcinoma, breast. Chronic obstructive pulmonary disease. Carcinoma, breast. . Mastectomy, bilateral. COMPARISON: No prior exams available for comparison. FINDINGS: Examination is performed on a backboard. Diffuse osteopenia. There is a fracture of the superior pubi c ramus on the right side and a fracture of the left inferior pubic ramus. There is suggestion of spring e periosteal reaction about both fractures making these age indeterminate. There is also possible cor tical discontinuity of the right initial tuberosity; fracture cannot be excluded. There is an asymmet ry to the appearance of the right third arcuate line of the sacrum and a sacral insufficiency fractur e cannot be excluded. The iliac wings are intact. Prominent vascular calcification in the iliac and p roximal vessels. Intramedullary kenny and trochanteric nail in the left femur. There is a thin lucency in the thickened cortex of the proximal lateral femur which may represent a fracture, age indeterminate. CONCLUSION: Fractures of the right superior pubic ramus, left inferior pubic ramus, initial tuberosity. Possible fractures of the right sacrum and proximal lateral shaft of the femur. Electronically signed by: Josias Parmar MD 05/10/2018 9:05 PM EST
[2018-05-10 21:07] LABS: Alkaline Phosphatase 75 U/L (45-117); Total Protein 6.7 g/dL (6.4-8.2); Troponin I 0.03 ng/mL (0.02-0.05)
[2018-05-10 21:08] LABS: Creatine Kinase 51 U/L (26-192)
[2018-05-10 21:38] LABS: Amorphous Sediment,Urine Rare /hpf; Bacteria,Urine Many /hpf; Bilirubin,Urine Negative (Negative); Clarity,Urine Turbid (Clear); Glucose,Urine (UA) Negative (Negative); Leukocyte Esterase,Urine Large (Negative); Nitrite,Urine Negative (Negative); Specific Gravity,Urine 1.014 (1.002-1.035); Squamous Epithelial Cell,Urine 3 /hpf (0-5)
[2018-05-10 21:39] LABS: Color,Urine Yellow (Yellw/Straw)
[2018-05-10] MEDS ORDERED: Morphine Inj 4 MG/ML Vial IV.PUSH ONE (22:15)
[2018-05-10] MEDS ORDERED: Azithromycin Inj 500 MG in Sodium Chlor 0.9% Inj 250 ML IV.SIG ONE (22:18)
[2018-05-10] MEDS ORDERED: Sod Chloride 0.9% Inj 1,000 ML IV.CONT SCH (22:30)
[2018-05-10] MEDS ORDERED: Acetaminophen 325 MG Tablet PO PRN (22:30)
[2018-05-10] MEDS ORDERED: Morphine Sulfate Inj 2 MG/ML Vial IV.PUSH PRN (22:46)
--- NOTE | 2018-05-10 23:58 | CT ---
EXAM DATE: 05/10/2018 11:43 PM EST AGE/SEX: 82 years / Female INDICATIONS: Pelvic pain and fractures of both pubic rami seen on plain film. CLINICAL DATA: This is the patient's initial encounter. Patient reports that signs and symptoms have been present for 1 day and indicates a pain score of 10/10. MEDICAL/SURGICAL HISTORY: Cardiovascular disease. Chronic obstructive pulmonary disease. Carcinom a, breast. Diverticulitis AAA Appendectomy. Hysterectomy. RADIATION DOSE: 18.22 CTDI (mGy) COMPARISON: [facility], HIP LEFT W AP PELVIS 2V, 05/10/2018. . TECHNIQUE: Multiple contiguous axial images were obtained through the pelvis without contrast. Imag es were obtained using multiple row detector helical technique. . Using automated exposure control an d adjustment of the mA and/or kV according to patient size, radiation dose was kept as low as reasona carla achievable to obtain optimal diagnostic quality images. DICOM format image data is available brandy ctronically for review and comparison. FINDINGS: Bowel/Mesentery: Nonobstructive bowel gas pattern with moderate to large amount of stool within the distal colon. Bladder: Contours are smooth. Retroperitoneum: No evidence of deep pelvic adenopathy. Reproductive Organs: No abnormal masses or calcifications seen. Inguinal: The inguinal region is unremarkable without evidence of adenopathy. Bony Structures: There is diffuse moderate to severe osteopenia. Postoperative changes are noted in the left hip with intramedullary kenny and locking cannulated screw. There is an old fracture deformity in this region with no definite acute fracture. There is a healing fracture of the left anterior jesus tabulum best seen on axial image #64 small amount of callus. There are healing fractures of the left inferior pubic rami with surrounding callus and right anterior superior pubic ramus with mild surroun ding callus. The right hip is intact. There are insufficiency fractures involving the left side of th e sacrum. Postoperative changes noted in the lower lumbar spine status post fusion. CONCLUSION: 1. Moderate to severe osteopenia with multiple subacute appearing healing fractures. This includes f ractures of both pubic rami, the anterior left acetabulum and left sacral insufficiency fractures. 2. Postoperative changes in the left hip with old fracture deformity. There is no definite acute fra cture in this region. 3. Post surgical changes in the lower lumbar spine. Electronically signed by: Pranay Knight MD 05/10/2018 11:57 PM EST
[2018-05-11] MEDS: Sod Chloride 0.9% Inj 1,000 ML IV.CONT SCH ×2 (00:54→08:30)
[2018-05-11] MEDS ORDERED: Chlorhexidine Gluconate 2% 1 Pack (2 Cloths) TOPICAL ONE (03:00)
[2018-05-11] MEDS ORDERED: Sodium Chlor 0.9% Inj 500 ML IV.SIG SCH (03:00)
--- NOTE | 2018-05-11 06:53 | P.CONOP ---
[facility] Orthoped[facility] Consult Note - [facility] Consult date: 05/11/18 Consult reason: fracture Chief complaint: Pelvis Fractures s/p Fall, AMS, UTI, Pneumonia Narrative: The patient is an 82 year old female who presents to the [facility] emergency department with a history of reportedly falling twice earlier today. The patient was sent in by a local correction for evaluation and treatment. According to the nurse, the patient also has altered mentation. The patient is oriented to person, time, however not place. The patient reports that she has left hip pain since the fall. She denies having any headache, neck pain, or known loss of consciousness. She denies having any chest pain or chest pressure at this time. She denies having any shortness of breath. The patient is cooperative with neurologic examination and is moving all extremities equally. The patient was brought in by [employer]. The patient according to the record is anticoagulated on Coumadin. Patient apparently resides at a detention facility. He states that she does not know why she fell. She states that she has pain in the pelvis and right hip. Denies any numbness, tingling, radiation of symptoms. States pain with movement of hips. Denies any pain anywhere else. Review of Systems Patient denies any fevers, weight loss, headache, visual changes, hearing loss, chest pain, palpitations, shortness of breath, nausea, vomiting, urinary changes , neck or back pain, skin rashes, weakness or numbness of extremities, or depression. All other systems reviewed negative except as stated in [facility] - History History Provided By: Patient, Family Member, Medical Record - Medical History Medical History: Medical History (Last Reviewed 05/11/18 @ 06:54 by BRANDIN Montelongo) Abdominal aneurysm Afib Aortic stenosis Breast cancer CHF (congestive heart failure) COPD (chronic obstructive pulmonary disease) Carotid artery stenosis Diverticulosis Femur fracture, left Fibromyalgia H/O: hysterectomy History of DVT of lower extremity Neuropathy Osteoarthritis PVD (peripheral vascular disease) Spinal stenosis Urothelial cancer - Surgical History Surgical History: Surgical History (Last Reviewed 05/11/18 @ 06:54 by BRANDIN Montelongo) History of appendectomy History of back surgery Hx of cardiac cath S/P AVR (aortic valve replacement) - Family History Family History: Family History (Last Reviewed 05/11/18 @ 06:54 by BRANDIN Montelongo) Other No pertinent family history - Social History I have reviewed the patient's Social History: Yes - Tobacco History Second Hand Smoke Exposure: No Tobacco Use In Past 30 Days: No Smoking Status: Never smoker Tobacco Type: Cigarettes - Alcohol History How Often Do You Have a Drink Containing Alcohol: Never - Substance Use History Substance History: No History of Abuse - Travel History Recent Travel in the [place] Within the Last 8 Weeks: No Recent Travel Out of the Country Within the Last 8 Weeks: No - Immunization History Tetanus Immunization: Unsure Hx Influenza Vaccine This Season: Yes Medications and Allergies Active Medications: Active Medications Acetaminophen (Tylenol) 650 mg PO Q4H PRN PRN Reason: Temp > 100.4 Al Hydroxide/Mg Hydroxide (Milk Of Magnesia Liq) 30 ml PO Q12H PRN PRN Reason: Mild Constipation Albuterol (Duoneb Neb (Dennise)) 1 ampul NEB Q6HR NEB DENNISE Last Admin: 05/11/18 05:43 Dose: 1 ampul Sodium Chloride (Ns Inj) 1,000 mls @ 70 mls/hr IV.CONT .[id number] DENNISE Last Admin: 05/11/18 00:55 Dose: 70 mls/hr Sodium Chloride (Ns Inj) 1,000 mls @ 100 mls/hr IV.CONT .Q10H DENNISE Last Admin: 05/11/18 00:54 Dose: Not Given Azithromycin 500 mg/ Sodium (Chloride) 250 mls @ 250 mls/hr IV.SIG Q24H DENNISE Ceftriaxone Sodium 1,000 mg/ (Sodium Chloride) 100 mls @ 200 mls/hr IV.SIG Q24H DENNISE Lactated Ringer's (Lr 1000 Ml Inj) 1,000 mls @ 30 mls/hr IV.SIG .Q24H DENNISE Stop: 05/12/18 02:59 Sodium Chloride (Ns Inj) 500 mls @ 30 mls/hr IV.SIG .Q10H DENNISE Lactulose (Lactulose Liq) 30 ml PO DAILY PRN PRN Reason: SEVERE CONSITIPATION Morphine Sulfate (Morphine Inj) 2 mg IV.PUSH Q3H PRN PRN Reason: PAIN SCALE 6 TO 10 Last Admin: 05/11/18 05:15 Dose: 2 mg Ondansetron HCl (Zofran Inj) 4 mg IV.PUSH Q6H PRN PRN Reason: NAUSEA OR VOMITING Allergies Allergy/AdvReac Type Severity Reaction Status Date / Time doxycycline Allergy Severe Hives Verified 04/01/18 15:21 gabapentin Allergy Severe Hives Verified 04/01/18 15:21 pregabalin Allergy Severe Hives Verified 04/01/18 15:21 orange AdvReac Intermediate Diarrhea Verified 04/01/18 15:21 Home Medications Medication Instructions Recorded Confirmed Type docusate sodium 100 mg PO DAILY 04/01/18 04/20/18 History Exam Vital signs: Vital Signs 05/10/18 19:45 05/10/18 23:53 05/11/18 00:17 Temperature 100.8 F H 98 F Pulse Rate 66 70 Respiratory Rate 15 18 Blood Pressure 131/53 L 124/58 L Pulse Oximetry 96 93 L 05/11/18 01:43 05/11/18 01:59 05/11/18 02:00 Temperature 97.2 F L Pulse Rate 97 H 80 Respiratory Rate 19 Blood Pressure 144/63 H Pulse Oximetry 92 L 92 L 05/11/18 05:43 Temperature Pulse Rate 80 Respiratory Rate 19 Blood Pressure Pulse Oximetry Intake & Output 05/10/18 05/10/18 05/11/18 06:59 18:59 06:59 Intake Total 350 / 350 Balance 350 / 350 Weight 62 kg Intake: IV 350 / 350 Azithromycin Inj 500 MG In NS 250 / 250 Inj 250 ML @ 250 mls/hr IV.SIG ONCE ONE Rx#:[id number] Rocephin Inj 1,000 MG In NS Inj 100 / 100 100 ML @ 200 mls/hr IV.SIG Q12H DENNISE Rx#:[id number] Other: # Voids 2 Date of Last Bowel Movement 05/10/18 Weight On Admission 62 kg Narrative: General: Well-developed and well-nourished. Resting comfortably in no acute distress Head: Normocephalic and atraumatic Ears: Hearing is intact bilaterally Eyes: Extraocular motion is intact. Pupils are equal round and reactive to light. Neck: No evidence of lymphadenopathy Cranial nerve: II-XII grossly intact Lungs: No use of accessory muscles or breathing and no audible wheezes at bedside Heart: No grade 4 murmur present at bedside Abdomen: Soft and nontender. Musculoskeletal: RLE: No pain in ankle or knee with movement. Mild discomfort with movement of hip. Full sensation distally with strong dorsiflexion LLE: No movement in knee or ankle. Mild discomfort with movement of hip. Full sensation distally with strong dorsiflexion BUE: Full movement of shoulders, elbows, wrist and fingers with no pain with full sensation in median and ulnar nerve bilaterally Results - Labs Result Diagrams: 05/10/18 20:05 05/10/18 20:05 Labs: Laboratory Results - last 24 hr 05/10/18 05/10/18 05/10/18 20:05 20:05 20:05 WBC 10.8 RBC 2.59 L Hgb 8.2 L Hct 24.7 L MCV 95.6 MCH 31.7 MCHC 33.2 RDW 17.4 H Plt Count 305 MPV 7.7 Neut % (Auto) 91.4 H Lymph % (Auto) 2.6 L [place] % (Auto) 5.8 Eos % (Auto) 0.0 Baso % (Auto) 0.2 Neut # (Auto) 9.9 H Lymph # (Auto) 0.3 L [place] # (Auto) 0.6 Eos # (Auto) 0.0 Baso # (Auto) 0.0 WBC Differential . Differential Comment Auto diff final PT INR APTT Sodium 134 L Potassium 5.1 Chloride 103 Carbon Dioxide 22.0 Anion Gap 9 BUN 51 H Creatinine 2.73 H Estimated GFR 17 L Random Glucose 115 H Calcium 8.5 Total Bilirubin 0.3 AST 21 ALT 15 Alkaline Phosphatase 75 Ammonia Less than 10 L Total Creatine Kinase 51 Troponin I 0.03 B-Natriuretic Peptide Total Protein 6.7 Albumin 2.5 L Lipase 55 L Urine Color Urine Clarity Urine pH Ur Specific [place] Urine Protein Urine Glucose (UA) Urine Ketones Urine Occult Blood Urine Nitrate Urine Bilirubin Urine Urobilinogen Ur Leukocyte Esterase Urine RBC Urine WBC Urine WBC Clumps Ur Squamous Epith Cells Amorphous Sediment Urine Bacteria Micro UA Comment Ur Microscopic Review Urine Culture Comments 05/10/18 05/10/18 05/10/18 20:05 20:05 20:30 WBC RBC Hgb Hct MCV MCH MCHC RDW Plt Count MPV Neut % (Auto) Lymph % (Auto) [place] % (Auto) Eos % (Auto) Baso % (Auto) Neut # (Auto) Lymph # (Auto) [place] # (Auto) Eos # (Auto) Baso # (Auto) WBC Differential Differential Comment PT 23.8 H INR 2.4 APTT 34.0 H Sodium Potassium Chloride Carbon Dioxide Anion Gap BUN Creatinine Estimated GFR Random Glucose Calcium Total Bilirubin AST ALT Alkaline Phosphatase Ammonia Total Creatine Kinase Troponin I B-Natriuretic Peptide 1276 H Total Protein Albumin Lipase Urine Color Yellow Urine Clarity Turbid H Urine pH 6.0 Ur Specific [place] 1.014 Urine Protein 30 H Urine Glucose (UA) Negative Urine Ketones Negative Urine Occult Blood Negative Urine Nitrate Negative Urine Bilirubin Negative Urine Urobilinogen Less than 2 Ur Leukocyte Esterase Large H Urine RBC 7 H Urine WBC Urine WBC Clumps Many H Ur Squamous Epith Cells 3 Amorphous Sediment Rare H Urine Bacteria Many H Micro UA Comment Culture indicated Ur Microscopic Review Not Reportable Urine Culture Comments Culture indicated - Diagnostic results Imaging: Impressions Pelvis CT 05/10/18 00:00 CONCLUSION: 1. Moderate to severe osteopenia with multiple subacute appearing healing fractures. This includes fractures of both pubic rami, the anterior left acetabulum and left sacral insufficiency fractures. 2. Postoperative changes in the left hip with old fracture deformity. There is no definite acute fracture in this region. 3. Post surgical changes in the lower lumbar spine. Chest X-Ray 05/10/18 19:45 CONCLUSION: Suspected developing infiltrate within the lingula. Chronic interstitial changes. Hip X-Ray 05/10/18 19:45 CONCLUSION: Fractures of the right superior pubic ramus, left inferior pubic ramus, initial tuberosity. Possible fractures of the right sacrum and proximal lateral shaft of the femur. Hip CT: report reviewed, image reviewed Assessment and Plan - Assessment and Plan 1) Bilateral Pubic Rami Fractures 2) Left Sacral Insufficiency Fracture -Treatment options were discussed with the patient. It appears she has developed multiple pelvic fractures. Both of her pubic rami in her left sacrum. These fractures are well aligned and very stable. I informed the patient that he will not require surgical intervention. This should heal well on the round. I would recommend that she work with physical therapy to work on full weightbearing and ambulating. She will likely require admission back to a detention facility. I informed the patient that this will likely cause her significant discomfort for 6-8 weeks which should slowly fade away heal on its own. She may resume her diet and will work with therapy. Once she is ambulating sufficiently, she will need to be discharged to a detention facility. She may follow-up with Dr. Arguelles or his PA in 2 weeks for repeat x- ray and evaluation of her pelvis. Patient understood and all questions were answered. The above patient was reviewed and discussed with Dr. Arguelles and he agrees to the dictation.
[2018-05-11] MEDS ORDERED: Sod Chloride 0.9% Inj 1,000 ML IV.CONT SCH (08:38)
[2018-05-11] MEDS: Morphine Sulfate Inj 2 MG/ML Vial IV.PUSH PRN ×3 (08:51→12:28)
[2018-05-11] MEDS ORDERED: Sodium Chlor 0.9% Inj 500 ML IV.CONT ONE (11:00)
--- NOTE | 2018-05-11 11:50 | ECG ---
Date Performed: 05/10/2018 Time Performed: 20:10:50 PTAGE: 82 years EKG: Sinus rhythm WITH SINUS ARRHYTHMIA RIGHT BUNDLE BRANCH BLOCK LEFT ANTERIOR FASCICULAR BLOCK ABNORMAL ECG PREVIOUS TRACING : 04/20/2018 12.08 DOCTOR: Garrison Moreau Interpretating Date/Time 05/11/2018 11:48:56
[2018-05-11 12:27] VITALS: BP 89/44; PULSE 63; RESP 16; TEMP 99.2; O2SAT 98
--- NOTE | 2018-05-11 17:35 | P.PN ---
Subjective Interval history: the patient was seen in consultation by palliative care and the family has elected to withdraw treatments for curative reasons and initiate comfort measures with hospice referral. Hospice offered placement for the patient in the [facility]. The family has accepted. The patient was discharged to the care center for comfort measures. The patient's care is transferred to the director medical science at the facility. Physical Exam Vital signs: Vital Signs 05/10/18 19:45 05/10/18 23:53 05/11/18 00:17 Temperature 100.8 F H 98 F Pulse Rate 66 70 Respiratory Rate 15 18 Blood Pressure 131/53 L 124/58 L Pulse Oximetry 96 93 L 05/11/18 01:43 05/11/18 01:59 05/11/18 02:00 Temperature 97.2 F L Pulse Rate 97 H 80 Respiratory Rate 19 Blood Pressure 144/63 H Pulse Oximetry 92 L 92 L 05/11/18 04:00 05/11/18 05:43 05/11/18 08:00 Temperature 99.4 F 97.8 F Pulse Rate 82 80 68 Respiratory Rate 19 19 14 Blood Pressure 116/58 L 87/51 L Pulse Oximetry 90 L 97 05/11/18 09:13 05/11/18 09:29 05/11/18 12:00 Temperature 99.2 F Pulse Rate 66 63 Respiratory Rate 18 16 Blood Pressure 89/44 L Pulse Oximetry 98 05/11/18 12:30 Temperature Pulse Rate Respiratory Rate 16 Blood Pressure Pulse Oximetry Intake & Output 05/10/18 05/11/18 05/11/18 18:59 06:59 18:59 Intake Total 350 / 350 527 / 527 Balance 350 / 350 527 / 527 Weight 136 lb 10.986 oz Intake: IV 350 / 350 527 / 527 NS Inj 1,000 ML @ 70 mls/hr IV. 527 / 527 CONT .[id number] DOMINIQUE Rx#:[id number] NS Inj 500 ML @ 1000 mls/hr IV. 0 / 0 CONT .Q30M ONE Rx#:[id number] Azithromycin Inj 500 MG In NS 250 / 250 Inj 250 ML @ 250 mls/hr IV.SIG ONCE ONE Rx#:[id number] Rocephin Inj 1,000 MG In NS Inj 100 / 100 100 ML @ 200 mls/hr IV.SIG Q12H DOMINIQUE Rx#:[id number] Other: # Voids 2 # Incontinent Voids 4 Date of Last Bowel Movement 05/10/18 05/11/18 Weight On Admission 136 lb 10.986 oz Results - Labs CBC & Chem 7: 05/10/18 20:05 05/10/18 20:05 Laboratory Results - last 24 hr 05/10/18 05/10/18 05/10/18 20:05 20:05 20:05 WBC 10.8 RBC 2.59 L Hgb 8.2 L Hct 24.7 L MCV 95.6 MCH 31.7 MCHC 33.2 RDW 17.4 H Plt Count 305 MPV 7.7 Neut % (Auto) 91.4 H Lymph % (Auto) 2.6 L [place] % (Auto) 5.8 Eos % (Auto) 0.0 Baso % (Auto) 0.2 Neut # (Auto) 9.9 H Lymph # (Auto) 0.3 L [place] # (Auto) 0.6 Eos # (Auto) 0.0 Baso # (Auto) 0.0 WBC Differential . Differential Comment Auto diff final PT INR APTT Sodium 134 L Potassium 5.1 Chloride 103 Carbon Dioxide 22.0 Anion Gap 9 BUN 51 H Creatinine 2.73 H Estimated GFR 17 L Random Glucose 115 H Calcium 8.5 Total Bilirubin 0.3 AST 21 ALT 15 Alkaline Phosphatase 75 Ammonia Less than 10 L Total Creatine Kinase 51 Troponin I 0.03 B-Natriuretic Peptide Total Protein 6.7 Albumin 2.5 L Lipase 55 L Urine Color Urine Clarity Urine pH Ur Specific [place] Urine Protein Urine Glucose (UA) Urine Ketones Urine Occult Blood Urine Nitrate Urine Bilirubin Urine Urobilinogen Ur Leukocyte Esterase Urine RBC Urine WBC Urine WBC Clumps Ur Squamous Epith Cells Amorphous Sediment Urine Bacteria Micro UA Comment Ur Microscopic Review Urine Culture Comments 05/10/18 05/10/18 05/10/18 20:05 20:05 20:30 WBC RBC Hgb Hct MCV MCH MCHC RDW Plt Count MPV Neut % (Auto) Lymph % (Auto) [place] % (Auto) Eos % (Auto) Baso % (Auto) Neut # (Auto) Lymph # (Auto) [place] # (Auto) Eos # (Auto) Baso # (Auto) WBC Differential Differential Comment PT 23.8 H INR 2.4 APTT 34.0 H Sodium Potassium Chloride Carbon Dioxide Anion Gap BUN Creatinine Estimated GFR Random Glucose Calcium Total Bilirubin AST ALT Alkaline Phosphatase Ammonia Total Creatine Kinase Troponin I B-Natriuretic Peptide 1276 H Total Protein Albumin Lipase Urine Color Yellow Urine Clarity Turbid H Urine pH 6.0 Ur Specific [place] 1.014 Urine Protein 30 H Urine Glucose (UA) Negative Urine Ketones Negative Urine Occult Blood Negative Urine Nitrate Negative Urine Bilirubin Negative Urine Urobilinogen Less than 2 Ur Leukocyte Esterase Large H Urine RBC 7 H Urine WBC Urine WBC Clumps Many H Ur Squamous Epith Cells 3 Amorphous Sediment Rare H Urine Bacteria Many H Micro UA Comment Culture indicated Ur Microscopic Review Not Reportable Urine Culture Comments Culture indicated Microbiology 05/10/18 20:30 Clean Catch Urine Urine Culture - Preliminary Immature growth - reincubate - Imaging Impressions Pelvis CT 05/10/18 00:00 CONCLUSION: 1. Moderate to severe osteopenia with multiple subacute appearing healing fractures. This includes fractures of both pubic rami, the anterior left acetabulum and left sacral insufficiency fractures. 2. Postoperative changes in the left hip with old fracture deformity. There is no definite acute fracture in this region. 3. Post surgical changes in the lower lumbar spine. Chest X-Ray 05/10/18 19:45 CONCLUSION: Suspected developing infiltrate within the lingula. Chronic interstitial changes. Hip X-Ray 05/10/18 19:45 CONCLUSION: Fractures of the right superior pubic ramus, left inferior pubic ramus, initial tuberosity. Possible fractures of the right sacrum and proximal lateral shaft of the femur.
--- NOTE | 2018-05-11 18:44 | MH ---
cc: Boo Morrissey MD DATE OF ADMISSION: 05/10/2018 ADMITTING DIAGNOSIS: Bilateral pubic ramus fractures, sacral fracture, status post fall, azotemia, sacral insufficiency fracture. HISTORY OF PRESENT ILLNESS: This is an 82-year-old white female well known to the undersigned physician, has a complex medical history including COPD, status post TAVR for aortic stenosis, chronic diastolic heart failure, peripheral vascular disease and chronic kidney disease stage III. The patient was residing in a longterm facility following a recent hospitalization for a fall resulting in a pubic ramus fracture and a urinary tract infection. The patient had fallen on the day prior to admission and she was complaining of pain in the left hip and left chest wall. The patient became increasingly confused and was not eating or drinking. Her condition was rapidly declining. Oxygen saturations decreased to 88% to 89% on 4 liters per minute per nasal cannula. The patient was transferred to this facility for further evaluation and treatment. She was in severe pain due to pain in the groin area bilaterally and pain in the back. The patient also complained of left-sided rib chest wall pain. Further history is not possible as the patient is confused and in severe pain. PAST MEDICAL HISTORY: Significant for status post left inferior pubic ramus fracture, which occurred last month. 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 The patient has an IVC filter in place. She has peripheral vascular disease, hyperlipidemia, 6 mm calcified lymph node in the left chest, which was found in 2011 and has been stable with serial CT scans. She has a history of bladder cancer in 2014, for which she underwent TURBT and subsequent BCG treatments, but has refused followup cystoscopies. She had a left hip fracture in 2013. She has coronary artery disease with diffuse 30% to 50% coronary stenosis based on cardiac catheterization done earlier this year. She has pulmonary hypertension, hypothyroidism, hyperlipidemia, macular degeneration and a history of paroxysmal atrial fibrillation. Her surgical history is significant for status post hysterectomy in 1969, status post bilateral salpingo-oophorectomy in 1998, status post left breast lumpectomy for breast cancer in 1992 with subsequent radiation therapy, status post right breast lumpectomy for breast cancer with subsequent radiation therapy in 1998, status post cervical laminectomy, status post lumbar laminectomy and fusion, history of IVC filter placement in 2000. She had multiple surgeries for skin cancer removals and radiation therapy on the squamous cell carcinoma on the head, status post appendectomy, status post left total hip replacement due to fracture in 2017. CURRENT MEDICATIONS: 1. Lovenox 40 mg subcutaneously daily. 2. Tylenol 650 mg every 4 hours as needed for pain. 3. Aspirin 81 mg daily. 4. Vitamin D3 1000 international units daily. 5. Colace 100 mg daily. 6. Ferrous sulfate 325 mg daily. 7. Hydrocodone/acetaminophen 7.5/325 mg 1 tablet every 4 hours as needed for pain. 8. DuoNebs nebulizer treatments 1 unit dose 3 times a day. 9. Levothyroxine 50 mcg daily. 10. Milk of magnesia p.r.n. 11. Pravastatin 20 mg daily. 12. Prednisone 10 mg daily. 13. Sotalol 40 mg twice daily. 14. Anoro Ellipta 62.5 - 25 mcg per actuation 1 inhalation daily. 15. PreserVision AREDS2 1 capsule twice daily. 16. Coumadin 5 mg daily except 2.5 mg on Mondays and . 17. Zolpidem 5 mg at bedtime as needed for insomnia. ALLERGIES: DOXYCYCLINE, GABAPENTIN, LYRICA AND CITRUS CAUSED DIARRHEA. FAMILY HISTORY: Noncontributory. SOCIAL HISTORY: She is . She lives alone. She smoked 1+ pack of cigarettes a day for over 50 years. She has not smoked in several years. She does not consume alcohol. She has a stepdaughter who lives locally who assists her with her affairs. REVIEW OF SYSTEMS: Unobtainable except as mentioned above. PHYSICAL EXAMINATION: VITAL SIGNS: Upon arrival to the emergency department, the patient's blood pressure was 131/53 with a heart rate of 66, respirations were 15, temperature 100.8 degrees Fahrenheit, oxygen saturation was 96% on 4 liters per minute per nasal cannula. At the current time, the patient's blood pressure is 116/58 with a heart rate of 90, respirations 19, temperature 99.4 degrees Fahrenheit, oxygen saturation on 4 liters per minute per nasal cannula was 90%. GENERAL: This is a frail, elderly white female lying in bed in moderately severe distress due to pain. HEENT: Pupils are equal, round and reactive to light. Extraocular movements are intact. Sclerae are anicteric. Mouth and throat reveal dry mucous membranes with acetone breath. NECK: Supple without lymphadenopathy, JVD, bruits or thyromegaly. CARDIOVASCULAR: Shows regular rate and rhythm without murmurs. LUNGS: Reveal moderately reduced air exchange bilaterally without wheezes, rhonchi, or rales. ABDOMEN: Soft, nontender, nondistended. LOWER EXTREMITIES: Reveal no appreciable edema. No calf tenderness. No Homans sign. No palpable pulses. NEUROLOGIC: The patient is agitated and confused. She will answer some questions with brief 1 or 2 words. No lateralizing deficits. LABORATORY DATA: The patient's white blood cell count was 10.8, hemoglobin 8.2, hematocrit 24.7, platelet count was 305,000. INR is 2.4 with aPTT 34.0. The comprehensive metabolic profile was significant for a sodium 134, BUN was 51 with a creatinine of 2.73, glucose 115, albumin low at 2.5. The patient's troponin was normal at 0.03. Ammonia was less than 10. A total CK was 51, lipase 55. Urinalysis revealed a specific gravity of 1.014, pH of 6.0, 30 mg percent protein, large leukocyte esterase, innumerable WBCs, many white blood cell clumps, many bacteria. Culture is pending. Blood cultures are pending. The CT scan of the pelvis revealed [id number] osteopenia with multiple subacute appearing healing fractures. This includes fractures of the bilateral pubic rami, the anterior left acetabulum and the left sacral insufficiency fracture. There are postoperative changes of the left hip with old fracture deformity. There is no definite acute fracture in the region of the left hip, status post surgical changes in the lower lumbar spine. The chest x-ray revealed suspected developing infiltrate in the lingula, chronic interstitial changes. The x-ray of the left hip reveals fractures of the right superior pubic ramus, left inferior pubic ramus and ischial tuberosity, possible fractures of the right sacrum and proximal lateral shaft of the femur. The EKG revealed sinus arrhythmia with right bundle branch block, left anterior fascicular block. ASSESSMENT AND PLAN: 1. This is an 82-year-old white female who presented status post fall. She has multiple pelvic fractures as well as a sacral fracture. The patient was in moderately severe pain. When I saw her, she had not received any morphine sulfate IV for over 3 hours, she was given a stat dose when I saw her. The patient was seen by orthopedic surgery in consultation. Orthopedic surgery recommended conservative measures with bedrest until the patient's pain has subsided, then begin to slowly mobilize her with weightbearing as tolerated. The patient would require a prolonged course of treatment. There was no surgical intervention required at this time. We will provide the patient with morphine sulfate IV. I have asked speech therapy to evaluate the patient's swallowing, if she can swallow adequately will provide oral opioid analgesics in addition to the IV analgesics to provide better pain relief. 2. Prerenal azotemia. The BUN and creatinine are significantly higher than they have been. The patient was given IV fluids. We will monitor renal function and electrolytes. 3. Chronic obstructive pulmonary disease. The patient's respiratory status has been rapidly declining. She is requiring more supplemental oxygen. She has been unable to tolerate less than 4 liters per minute per nasal cannula, despite maximum treatment for her COPD. We will continue with oxygen to maintain oxygen saturations greater than 92%, provide nebulizer treatments and her Anoro. 4. Primary thrombophilia. The patient's INR is currently therapeutic. When she is able to resume p.o., will resume Coumadin. Otherwise, if she is unable to take p.o. We will begin Lovenox. 5. Probable urinary tract infection. The patient was placed on IV antibiotics. Urine culture pending. Adjust antibiotic coverage as needed. 6. Possible evolving left lingular infiltrate. The patient was placed on azithromycin and Rocephin. We will follow respiratory status, possibly obtain CT scan to better delineate whether there is presence of an infiltrate or not. Continue to maximize treatment for her chronic obstructive pulmonary disease. 7. Hypothyroidism. Resume levothyroxine when the patient is able to take p.o. 8. Peripheral vascular disease. The patient will resume aspirin and pravastatin when she is able to take p.o. PLAN: I discussed the patient's condition with her stepdaughter who was present in the hospital and we met after my evaluation of the patient. The patient's prognosis is poor based on her multiple comorbidities and overall declining clinical course. I have discussed with the stepdaughter the possibility of consulting Palliative Care to discuss better with the patient and the family the option for comfort measures. They agreed to the consultation. We will await the palliative consult and the decision of the family. Otherwise we will continue with treatment as outlined above. The patient has a living will and has personally expressed to me in the recent past that she wished to be a DO NOT RESUSCITATE, so we will make the patient a NO CODE. Boo Morrissey MD JRM/ct , 05:34 PM , 05:58 PM
[2018-05-11] MEDS ORDERED: Azithromycin Inj 500 MG in Sodium Chlor 0.9% Inj 250 ML IV.SIG SCH (22:00)
== END 2018-05-11 12:56 | disposition hospice, inpatient (51) ==
LOC: NEPC 19:08 → NEDA 22:23 → N06 05-11 01:11
PROVIDERS: ADMIT Family Medicine; ATTEND Family Medicine